=== PATIENT | female | born 1945 | race Caucasian/White ===

== ENCOUNTER 2020-02-23 10:45 | Outpatient (CLI) | payer MEDICARE, SELFPAY ==
--- NOTE | ~2020-02-23 | MMUS_ITS ---
EXAMINATION: MM diagnostic firda BI w garrison, US breast LT complete HISTORY: Left arm and hand swelling, left axillary lymphadenopathy TECHNIQUE: Bilateral ML, MLO and craniocaudal 3-D tomosynthesis images were performed and synthetic 2 -D images were generated. Left rotated lateral full field and spot images. CAD analysis was submitted and interpreted. High resolution breast ultrasound was performed. COMPARISON: 04/15/2017, 08/24/2013 bilateral digital screening mammogram examinations BREAST PARENCHYMAL COMPOSITION: The breasts are heterogeneously dense, which may obscure small masses . FINDINGS: MAMMOGRAPHIC FINDINGS: There is new interval asymmetric increased wispy density in the left axillary tail and increased dens ity in the left axilla compared to the right. These findings are not present on the prior examination s of 04/15/2017 or 08/24/2013. Otherwise no suspicious mass, architectural distortion or malignant calcification, skin thickening or retraction of either breast is evident. There are numerous scattered bilateral benign calcifications of the breast. ULTRASOUND: There is a 3.2 x 2.0 x 2.6 cm irregular heterogeneous hypoechoic solid mass in the left axilla. This is suspicious for malignancy. Ultrasound-guided biopsy is recommended. IMPRESSION: 1. 3.2 cm left axillary mass, highly suggestive of malignancy 2. Ultrasound-guided biopsy is recommended BI-RADS category 5, highly suggestive of malignancy. Dr. Dyer telephoned the report and biopsy recommendation on 02/23/2020 at 1309 hours to Connor Constantino. Reviewed, dictated and finalized at location A. IMPRESSION: 1. 3.2 cm left axillary mass, highly suggestive of malignancy 2. Ultrasound-guided biopsy is recommended BI-RADS category 5, highly suggestive of malignancy. Dr. Dyer telephoned the report and biopsy recommendation on 02/23/2020 at 1309 ho urs to Connor Constantino.
== END 2020-02-23 10:46 | disposition home or self-care (01) ==
LOC: ANHIMG 10:48
PROVIDERS: PCP Family Medicine; Visit Provider Nurse Practitioner Family
DX: R59.0 Localized enlarged lymph nodes (principal); R92.8 Other abnormal and inconclusive findings on diagnostic imaging of breast
CPT/HCPCS: 76641; 77062; 77066; G0279

== ENCOUNTER 2020-04-01 13:59 | Outpatient (CLI) | payer MEDICARE, SELFPAY ==
--- NOTE | ~2020-04-01 | NM_ITS ---
EXAMINATION: NM muga DATE: 04/01/2020 15:41 INDICATION: Monitoring prior to chemotherapy. COMPARISON: None. TECHNIQUE: Stannous pyrophosphate was administered IV. After a waiting period, 18.9 mCi Tc-99m pertec hnetate was administered IV to radiolabel the red blood cells. Gated images of the heart were obtaine d in the best septal view.] FINDINGS: There is no regional wall motion abnormality or paradoxical motion of the left ventricle. The left ventricular ejection fraction measures 59%. IMPRESSION: 1. Normal left ventricular ejection fraction measuring 59%. Reviewed, dictated and finalized at location E.
== END 2020-04-01 14:00 | disposition home or self-care (01) ==
PROVIDERS: PCP Family Medicine; Visit Provider Internal Medicine Medical Oncology
DX: C50.612 Malignant neoplasm of axillary tail of left female breast (principal); Z17.0 Estrogen receptor positive status [ER+]; Z51.81 Encounter for therapeutic drug level monitoring
CPT/HCPCS: 78472; A9560

== ENCOUNTER 2020-06-26 14:17 | Outpatient (CLI) | payer MEDICARE, SELFPAY ==
[2020-06-26 15:18] LABS: INR 1.1; Prothrombin Time 13.4 Seconds (11.1-14.7)
== END 2020-06-26 14:18 | disposition home or self-care (01) ==
PROVIDERS: PCP Family Medicine; Visit Provider Internal Medicine Medical Oncology
DX: I82.409 Acute embolism and thrombosis of unspecified deep veins of unspecified lower extremity (principal)
CPT/HCPCS: 36415; 85610

== ENCOUNTER → 2020-07-18 10:22 | Outpatient (CLI) | payer MEDICARE, SELFPAY ==
--- NOTE | ~2020-07-18 | DEXA_ITS ---
Bone Density Report Name: Noreen Burgos Age: 75 Sex: Female Ethnicity: White Date of : 1945 Indication: postmenopausal osteoporosis; height loss; prior fracture; cancer; Referring Provider: RICHARD, ILIANA Anton Study: Bone densitometry was performed. Exam Date: July 18, 2020 Accession number: [id number] Bone Density: Region BMD T-score Z-score Classification AP Spine (L1-L4) 0.728 -2.9 -0.4 Osteoporosis Femoral Neck (Left) 0.508 -3.1 -0.9 Osteoporosis Total Hip (Left) 0.588 -2.9 -1.0 Osteoporosis Femoral Neck (Right) 0.507 -3.1 -0.9 Osteoporosis Total Hip (Right) 0.582 -2.9 -1.1 Osteoporosis Total Hip Mean 0.585 -2.9 -1.1 Osteoporosis World Health Organization criteria for BMD impression classify patients as: Normal (T-score at or above -1.0), Osteopenia (T-score between -1.0 and -2.5), or Osteoporosis (T-score at or below -2.5). 10-year Fracture Risk: FRAX not reported because: Some T-score for Spine Total or Hip Total or Femoral Neck at or below -2.5 Prior hip or vertebral fracture Previous Exams: Region Exam Age BMD T-score BMD Change BMD Change Date g/cm2 vs Baseline vs Previous AP Spine(L1-L4) 07/18/2020 75 0.728 -2.9 -0.048* -0.027* 09/27/2017 72 0.755 -2.7 -0.021 -0.011 06/16/2012 67 0.766 -2.6 -0.009 0.011 06/23/2010 65 0.756 -2.6 -0.020 -0.014 09/07/2007 62 0.770 -2.5 -0.006 -0.006 09/07/2005 60 0.776 -2.5 Total Hip(Left) 07/18/2020 75 0.588 -2.9 -0.159 -0.067* 09/27/2017 72 0.655 -2.4 -0.092 -0.014 06/16/2012 67 0.669 -2.2 -0.078 0.004 06/23/2010 65 0.664 -2.3 -0.082 -0.049* 09/07/2007 62 0.714 -1.9 -0.033 -0.054* 09/07/2005 60 0.768 -1.4 0.021 0.021 11/15/2002 57 0.747 -1.6 Total Hip(Right) 07/18/2020 75 0.582 -2.9 -0.139 -0.109* 09/27/2017 72 0.691 -2.1 -0.029 0.034* 06/16/2012 67 0.657 -2.3 -0.064 0.009 06/23/2010 65 0.648 -2.4 -0.073 0.000 09/07/2007 62 0.648 -2.4 -0.073 -0.130* 09/07/2005 60 0.777 -1.3 0.057 0.057 11/15/2002 57 0.721 -1.8 *Denotes significance at 95% confidence level, LSC for AP Spine = 0.022 g/cm2, LSC for Total Hip = 0.027 g/cm2 Clinical Information Provided by Patient:
== END ==
PROVIDERS: PCP Family Medicine; Visit Provider Family Medicine
DX: M81.0 Age-related osteoporosis without current pathological fracture (principal)
CPT/HCPCS: 77080

== ENCOUNTER → 2021-10-08 12:12 | Outpatient (CLI) | payer MEDICARE, SELFPAY ==
--- NOTE | ~2021-10-08 | MR_ITS ---
EXAMINATION: MR thoracic spine wo con DATE: 10/08/2021 13:34 INDICATION: Thoracic back pain. Numbness and tingling. TECHNIQUE: Magnetic resonance imaging (MRI) of the thoracic spine was performed without intravenous c ontrast. Sagittal localizer T1-weighted FSE of the cervical spine was obtained. Thoracic spine sequen eduardo included sagittal T2-weighted FSE, sagittal T1-weighted FSE, sagittal T2-weighted FS FSE, and axi al T2-weighted FSE. COMPARISON: Thoracic spine radiographs 11/15/2018 FINDINGS: There is 7 degrees levocurvature of thoracic spine. There is kyphosis of thoracic spine. Th ere is a chronic burst fracture of T11 with 4/5 loss of height centrally and retropulsion of bone 3 m m into central spinal canal. There is a chronic burst fracture of T12 with 3/5 loss of height, change s of vertebroplasty, and retropulsion of bone 5 mm into central spinal canal. There is moderately dec reased disc height at T4-T5. There is severely decreased disc height from T4-T5 through T7-T8 anterio rly with endplate remodeling. There is mildly decreased disc height from T8-T9 through T11-T12. There is multilevel facet joint osteoarthritis, severe bilaterally at T10-T11 and T11-T12. On the right, t here is mild neural foraminal stenosis at T10-T11. On the left, there is mild neural foraminal stenos is at T1-T2 and T10-T11. The discs do not extend beyond the endplate margins. There is mild central c anal stenosis at T1 and T12. The spinal cord signal intensity is normal. IMPRESSION: 1. Severe thoracic spondylosis. Reviewed, dictated and finalized at location A. GIOUS ASSISTANT
--- NOTE | ~2021-10-08 | MR_ITS ---
EXAMINATION: MR lumbar spine wo con DATE: 10/08/2021 13:34 INDICATION: Low back pain. Numbness and tingling. TECHNIQUE: Magnetic resonance imaging (MRI) of the lumbar spine was performed without intravenous con trast. Sequences included sagittal T2-weighted FSE, sagittal T2-weighted FS FSE, sagittal T1-weighted FSE, and axial T2-weighted FSE. COMPARISON: None FINDINGS: Bone alignment is normal in lumbar spine. Lumbar vertebral body heights are normal. There i s moderately decreased disc height at L5-S1. The distal spinal cord signal intensity is normal. The c onus medullaris is at L1. There is a 2.2 cm cyst in right kidney. The following disc levels are speci fically discussed: L1-L2: The disc is bulging. There is mild bilateral facet joint osteoarthritis. There is mild bilater al neural foraminal stenosis. There is mild central canal stenosis. L2-L3: The disc is bulging. There is mild bilateral facet joint osteoarthritis. There is mild bilater al neural foraminal stenosis. There is mild central canal stenosis. L3-L4: The disc is bulging and has an annular fissure. There is moderate bilateral facet joint osteoa rthritis. There is mild bilateral neural foraminal stenosis. There is mild central canal stenosis. L4-L5: The disc is bulging and has an annular fissure. There is moderate bilateral facet joint osteoa rthritis. There is mild bilateral neural foraminal stenosis. There is mild central canal stenosis. L5-S1: The disc is bulging and has an annular fissure. There is severe bilateral facet joint osteoart hritis. There is moderate bilateral neural foraminal stenosis. There is mild central canal stenosis. IMPRESSION: 1. Moderate lower lumbar spondylosis. Reviewed, dictated and finalized at location A. RPRISE DATA ARCHITECT
== END ==
PROVIDERS: PCP Family Medicine; Visit Provider Internal Medicine Rheumatology
DX: M47.815 Spondylosis without myelopathy or radiculopathy, thoracolumbar region (principal); M48.05 Spinal stenosis, thoracolumbar region; R20.0 Anesthesia of skin; R20.2 Paresthesia of skin; M40.205 Unspecified kyphosis, thoracolumbar region; S22.081A Stable burst fracture of T11-T12 vertebra, initial encounter for closed fracture
CPT/HCPCS: 72146; 72148

== ENCOUNTER 2023-01-22 10:03 | Outpatient (CLI) | payer MEDICARE, SELFPAY ==
[2023-01-22 11:25] LABS: Anion Gap 9 mmol/L (8-16); Blood Urea Nitrogen 39 mg/dL (7-17); Calcium 9.4 mg/dL (8.4-10.2); Carbon Dioxide 28 mmol/L (22-30); Chloride 100 mmol/L (98-107); Estimated Glomerular Filt Rate 29; Glucose 149 mg/dL (65-110); Potassium 3.8 mmol/L (3.4-5.0); Sodium 137 mmol/L (137-145)
== END 2023-01-22 10:04 | disposition home or self-care (01) ==
LOC: ANHLAB 10:06
PROVIDERS: PCP Family Medicine; Visit Provider Nurse Practitioner Adult Health
DX: I50.9 Heart failure, unspecified (principal)
CPT/HCPCS: 36415; 80048

== ENCOUNTER 2023-01-30 11:13 | Emergency (ER) | payer MEDICARE, SELFPAY ==
--- NOTE | ~2023-01-30 | XR_ITS ---
XR chest 2V DATE: 01/30/2023 12:07 INDICATION: Cough. History of congestive heart failure, breast cancer. TECHNIQUE: 2 views COMPARISON: 11/15/2018 PA and lateral chest FINDINGS: Left internal jugular Port-A-Cath catheter tip overlies the superior vena cava. Normal heart size. Is aortic calcification, ectasia and mild tortuosity. Bilateral hyperinflation, suggesting COPD. The elderly chest considerably this appearance. No hilar o r mediastinal enlargement is evident. No pleural effusion or pulmonary vascular congestion or pneumothorax. No pulmonary infiltrate or consolidation. Postsurgical change analyst the left axillary soft tissues, possibly due to prior axillary node dissecti on. There is diffuse osteopenia. There are multiple fracture deformities of the thoracic spine with vertebroplasty at a lower thoracic vertebral body. IMPRESSION: Bilateral hyperinflation, suggesting COPD No active cardiopulmonary disease Aortic atherosclerosis Left Port-A-Cath catheter Reviewed, dictated and finalized at location A.
[2023-01-30 11:29] VITALS: BP 104/70; PULSE 95; RESP 18; TEMP 36.4; O2SAT 100
--- NOTE | 2023-01-30 12:09 | ED.URI ---
HPI - URI/Sore Throat General Chief Complaint: Upper Respiratory Infection Stated Complaint: Sore Throat,Cough Time Seen by Provider: 01/30/23 11:47 Source: patient and family () Mode of arrival: ambulatory Limitations: no limitations History of Present Illness HPI Narrative: Patient presents today complaining of a productive cough since last night with postnasal drainage, scratchy throat, bilateral ear pain, headache. Denies fever or shortness of breath. Patient's history of metastatic breast cancer and just stopped chemo and knocked over. States her chemo damaged her hurting caused congestive heart failure which she has been under treatment for. States her grandchildren have been sick last week and she did have exposure. She has been taking Tylenol for her symptoms. Related Data Home Medications Medication Instructions Recorded Confirmed apixaban 2.5 mg tablet (Eliquis) 2.5 mg PO BID 01/30/23 01/30/23 duloxetine 30 mg capsule,delayed 30 mg PO DAILY 01/30/23 01/30/23 release exemestane 25 mg tablet 25 mg PO DAILY 01/30/23 01/30/23 furosemide 40 mg tablet 20 mg PO DAILY 01/30/23 01/30/23 ibandronate 150 mg tablet 150 mg PO MONTHLY 01/30/23 01/30/23 lifitegrast 5 % eye drops in a 2 drp EACH EYE BID 01/30/23 01/30/23 dropperette (Xiidra) magnesium oxide 400 mg (241.3 mg 400 mg PO DAILY 01/30/23 01/30/23 magnesium) tablet potassium chloride 20 mEq 20 meq PO DAILY 01/30/23 01/30/23 tablet,extended release(part/cryst) sacubitril 24 mg-valsartan 26 mg 0.5 tablet PO DAILY 01/30/23 01/30/23 tablet (Entresto) Allergies Allergy/AdvReac Type Severity Reaction Status Date / Time amoxicillin AdvReac Severe Swelling Verified 01/30/23 12:13 of Lip/Tongue/Throat ciprofloxacin AdvReac Mild Rash Verified 01/30/23 12:13 Review of Systems Review of Systems: CONSTITUTIONAL: Denies body aches, fever, chills, or sweats. EYES: Denies visual changes, redness, or discharge. ENT: Denies rhinorrhea, congestion, sore throat.+ scratchy throat, postnasal drip, bilateral ear pain CARDIOVASCULAR: Denies chest pain, palpitations, or edema. RESPIRATORY: Denies dyspnea.+ cough GASTROINTESTINAL: Denies abdominal pain, nausea, vomiting, or diarrhea. GENITOURINARY: Denies dysuria or hematuria. SKIN: Denies rash, itching, or wounds. MUSCULOSKELETAL: Denies back pain, joint pain, or myalgia. NEUROLOGIC: Denies numbness, tingling, or weakness.+ headache PSYCH: Denies depression or anxiety. PMFSH Past Medical History Medical History (Updated 01/30/23 @ 12:47 by Gema Mcgowan, [facility], ) Huerta's palsy Breast cancer Congestive heart failure COPD (chronic obstructive pulmonary disease) Diabetes History of shingles Sleep apnea Social History Social History Gender identity (if verbalized by the patient): Male Comments At time of signature, I have reviewed and agree with nursing past medical, surgical, social and family history unless otherwise noted. Please see nursing chart for further information. There is no relevant family history pertinent to the presenting complaint Exam Narrative: GENERAL: Well-appearing, well-nourished, and in no acute distress. HEAD: Normocephalic, atraumatic. EYES: EOMI. No redness or drainage. Conjunctivae normal. ENT: Mucous membranes pink and moist. Nares clear. No rhinorrhea. TMs normal bilaterally. Throat normal. Uvula midline. NECK: Normal AROM. Supple. No lymphadenopathy. CHEST: No respiratory distress. Clear to auscultation. HEART: Regular rate and rhythm. No murmur appreciated. Normal peripheral pulses. EXTREMITIES: Normal range of motion. No edema. SKIN: Warm, dry, no rash. Capillary refill normal. Normal skin turgor. NEURO: Alert and oriented x3. Gait steady. Left-sided facial droop consistent with Huerta's palsy. PSYCH: Normal affect. No signs of depression or anxiety. Course Course Level of Care: Tone
== END 2023-01-30 12:49 | disposition home or self-care (01) ==
PROVIDERS: Emergency Provider Nurse Practitioner; PCP Family Medicine
DX: J06.9 Acute upper respiratory infection, unspecified (principal); Z20.822 Contact with and (suspected) exposure to COVID-19; C50.919 Malignant neoplasm of unspecified site of unspecified female breast; C79.9 Secondary malignant neoplasm of unspecified site; J44.9 Chronic obstructive pulmonary disease, unspecified; E11.9 Type 2 diabetes mellitus without complications; I50.9 Heart failure, unspecified
CPT/HCPCS: 71046; 87081; 87426; 87880; 99212; C9803; G0463

== ENCOUNTER 2023-03-19 11:00 | Outpatient (RCR) | payer MEDICARE, SELFPAY ==
--- NOTE | 2023-02-22 15:49 | STOPEVAL1 ---
Assessment and note entered by Umm Dawson, TEXTILE COLORIST FORMULATOR Evaluation Information Assessment Status Evaluation Diagnosis Dysphonia Subjective Information The patient reports she has had breast cancer withh chemotherapy twice, after her last chemotherapy treatment in June,, she had issues including face paralysis speech sound imprecision. She reports that the left side of her face have improved but her right side has only minimally improved. She stated that her children are having trouble understanding her. Patient also reports that she is having trouble eating and has lost significant weight but has begun to put weight back on. Patient has to use her hand to get food where it needs to be on the right cheek in order to move it where it can be chewed and swallowed. Tends to consume more soft foods such as yogurt. She is able to consume raw vegetables but it takes a lot of work. She also reports that she had lost her ability to taste but that has improved in the past few months. Reported Pain Level Pain Score 0: Self Report Assessment ST Clinical Summary COMMUNICATION EVALUATION INCLUDING VOICE, ORAL MOTOR, AND SPEECH SKILLS Patient was seen for a voice, oral motor, and speech evaluation this date in order to assess her communication concerns. Patient reported that she feels that her voice may be strained secondary to her attempts to speak loudly and clearly for her and other family members. She reports she feels that her has a hearing problem and that her other family members cannot understand her over the phone and this causes her to strain. Additionally patient reports concerns with facial paralysis characterized as minimal labial movement with poor labial closure causing her to have to physically close her lips with her fingers to produce clear speech or to reduce dry mouth when sleeping. Today the patient presents with mild dysphonia characterized as a mildly strained vocal quality, and moderate dysarthria characterized as reduced labial rate, range, and strength, and moderate speech sound imprecision for labial/labial-dental sounds, /p,b,m,f,v/.
--- NOTE | 2023-03-04 15:34 | PCSTNOTE ---
The patient treatment was not able to be completed on 03/04 due to illness. Will plan to continue treatment per plan of care.
--- NOTE | 2023-03-11 11:36 | PCSTNOTE ---
The patient treatment was not able to be completed on 03/11 due to illness. Will plan to continue treatment per plan of care.
--- NOTE | 2023-03-11 11:45 | PCSTNOTE ---
The patient treatment was not able to be completed on 03/04 due to not feeling well. Will plan to continue treatment per plan of care.
--- NOTE | 2023-03-26 11:06 | PCSTNOTE ---
The patient treatment was not able to be completed on 03/26 due to illness. Will plan to continue treatment per plan of care.
--- NOTE | 2023-03-29 13:09 | PCSTNOTE ---
Therapist contacted patient who stated she has been admitted to [facility] with low blood pressure. Wants to reschedule later in the week and then contnue Speech Therapy.
--- NOTE | 2023-05-14 16:02 | STOPDC ---
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 She was presented with a mild dysphonia and moderate dysarthria and speech therapy was addressed to improve these impairments . Patient exhibited good progress in all areas. She then entered the hospital and was also at the end of her four weeks. When therapist contacted patient over the phone, her speech was intelligible and further therapy orders were not pursued. Patient was discharged with goals achieved. Plan of Care ST Services Indicated No
== END 2023-05-17 07:07 | disposition home or self-care (01) ==
LOC: ANHST 11:00
PROVIDERS: PCP Family Medicine; Visit Provider Internal Medicine Medical Oncology
DX: R49.0 Dysphonia (principal)
CPT/HCPCS: 92507; 92522; 92524

== ENCOUNTER 2023-03-27 13:04 | Inpatient (IN) | payer MEDICARE, SELFPAY ==
[2023-03-27] VITALS (9 sets, daily range): BP systolic 79–138; BP diastolic 46–66; PULSE 68–104; RESP 16–25; TEMP 36.3–36.6; O2SAT 92–100; BMI 19.5
--- NOTE | ~2023-03-27 | XR_ITS ---
XR chest 2V DATE: 03/27/2023 14:11 INDICATION: Cough, shortness of breath, hypertension, weakness. TECHNIQUE: AP and lateral views COMPARISON: January 30, 2023 2 view chest FINDINGS: Left internal jugular Port-A-Cath catheter with tip overlying superior vena cava is again n oted. No other tubes or central lines noted. Heart size is normal. There is aortic arch calcification, mild aortic unfolding. No hilar or mediasti nal enlargement. The lungs are hyperinflated consistent with obstructive airways disease. No pulmonary infiltrate or c onsolidation, pleural effusion or pulmonary vascular congestion or pneumothorax is detected. There is diffuse osteopenia. Chronic fracture deformities of the mid and lower thoracic spine and chance tebroplasty at a lower thoracic segment appears stable since January 30, 2023. IMPRESSION: Bilateral hyperinflation suggesting COPD; no active pulmonary disease Left Port-A-Cath catheter in superior vena cava Aortic atherosclerosis Reviewed, dictated and finalized at location A. IMPRESSION: Bilateral hyperinflation suggesting COPD; no active pulmonary disea se Left Port-A-Cath catheter in superior vena cava Aortic atherosclerosis
--- NOTE | ~2023-03-27 | US_ITS ---
Renal-Bladder ultrasound Clinical History: Acute renal injury Technique: Real-time sonographic imaging of the kidneys and urinary bladder was performed. Findings: The right kidney measures 9.4 cm in length and the left kidney measures 8.3 cm. There is no hydronephrosis or renal calculus identified. Renal cortical echogenicity is within normal limits. Ri ght renal cyst noted. The urinary bladder is largely collapsed, limiting evaluation. Impression: No hydronephrosis. Collapsed urinary bladder limits evaluation. Reviewed, dictated and finalized at location M. Impression: No hydronephrosis. Collapsed urinary bladder limits evaluation.
--- NOTE | 2023-03-27 13:42 | ED.RECABL ---
HPI - Recheck/Abnormal Lab/Rx General Chief Complaint: Recheck/Abnormal Lab/Rx Stated Complaint: low blood pressure Time Seen by Provider: 03/27/23 13:30 History of Present Illness HPI narrative: Patient is a 70-year-old female with a history of breast cancer on immunotherapy, HFrEF (EF approx 45%) presenting with low blood pressure. Patient states that she was recently started on a low-dose of Entresto by her electrical lineworker. States that she has been taking this for the last several weeks. States that she checks her blood pressure and only takes it if it is above 90/60. States that she has had some low blood pressures over the last several days. States that it was 94/60 this morning so she took her Entresto. She checked her blood pressure several hours later and it was 60s over 40s. States that she feels okay if she is sitting down but if she gets up to walk she feels very weak, lightheaded, short of breath. She denies any chest pain. She is on Eliquis. Denies leg swelling. Denies fevers or chills, abdominal pain, vomiting, dysuria. She does report a recent cough and diarrhea. Related Data Home Medications Medication Instructions Recorded Confirmed apixaban 2.5 mg tablet (Eliquis) 2.5 mg PO BID 01/30/23 03/27/23 duloxetine 30 mg capsule,delayed 30 mg PO DAILY 01/30/23 03/27/23 release exemestane 25 mg tablet 25 mg PO DAILY 01/30/23 03/27/23 furosemide 40 mg tablet 20 mg PO DAILY 01/30/23 03/27/23 lifitegrast 5 % eye drops in a 2 drp EACH EYE BID 01/30/23 03/27/23 dropperette (Xiidra) magnesium oxide 400 mg (241.3 mg 400 mg PO DAILY 01/30/23 03/27/23 magnesium) tablet potassium chloride 20 mEq 20 meq PO DAILY 01/30/23 03/27/23 tablet,extended release(part/cryst) Verzenio 150 mg PO BID 03/27/23 03/27/23 metoprolol succinate 25 mg 25 mg PO DAILY 03/27/23 03/27/23 tablet,extended release 24 hr Allergies Allergy/AdvReac Type Severity Reaction Status Date / Time amoxicillin AdvReac Severe Swelling Verified 03/27/23 13:20 of Lip/Tongue/Throat ciprofloxacin AdvReac Mild Rash Verified 03/27/23 13:20 Review of Systems Review of Systems: All systems reviewed & are unremarkable except as noted in HPI and below PMFSH Past Medical History Medical History Arthritis Chronic anemia Chronic anticoagulation Chronic obstructive pulmonary disease Diet-controlled diabetes mellitus Facial nerve palsy Right-sided, 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 Gastroesophageal reflux disease Heart failure with reduced ejection fraction History of shingles Hypertension No longer on medication following weight loss. Macular degeneration Obstructive sleep apnea No longer able to tolerate CPAP with her facial nerve palsy. Paroxysmal atrial fibrillation Stage IV breast cancer in female Surgical History Surgical History History of cardiac radiofrequency ablation History of cataract extraction History of section History of tubal ligation History of vertebroplasty Family History Family History Mother Congestive heart failure Father Leaky heart valve Social History Social History Social History: Surrogate medical decision maker: Flavio Burgos, spouse. Code status: Full code. Smoking status: Former smoker Additional smoking assessment comments: Social smoker Alcohol intake: current Drinks per week: 5 Alcohol use details: Drinks a glass of wine most evenings. Substance use: never Lack of Transportation: No Lack of Food: Never True Current Housing: I Have Housing Concerned About Future Housing: No Difficulty Paying Gas/Electric Bills: No Difficulty Paying for Meds: No Currently Unemployed: No Education: Bachelor's Degree Difficulty w/ Childcare or Famil
--- NOTE | 2023-03-27 13:54 | ECG_ITS ---
Measurements Intervals Sikes Rate: 73 P: 55 RI: 138 QRS: 9 QRSD: 85 T: 46 QT: 387 QTc: 429 Interpretive Statements SINUS RHYTHM NO PREVIOUS ECG AVAILABLE FOR COMPARISON Electronically Signed On 03-28-2023 12:12:11 CDT by Jayne Jerez M.D.
[2023-03-27] MEDS: SODIUM CHLORIDE 0.9% IV 1,000 ML 999 ML IV CONT ×2 (14:33→15:35)
[2023-03-27 14:37] LABS: Basophils Absolute Auto 0.1 K/mm3 (0.0-0.1); Basophils Percent Auto 1.6 % (0.2-1.2); Eosinophils Absolute Auto 0.1 K/mm3 (0-0.3); Eosinophils Percent Auto 2.2 % (0-4.4); Hematocrit 27.9 % (37.0-47.0); Hemoglobin 9.2 g/dL (12.0-15.0); Immature Granulocyte Absolute 0.01 K/mm3 (0.00-0.031); Immature Granulocyte Percent A 0.3 % (0-0.5); Lymphocytes Absolute Auto 1.78 K/mm3 (0.9-3.2); Lymphocytes Percent Auto 56.7 % (18.3-44.2); Mean Corpuscular Hemoglobin 28.8 pg (26-34); Mean Corpuscular Volume 87.5 fl (80-100); Mean Platelet Volume 9.6 fl (7.4-10.4); Monocytes Absolute Auto 0.2 K/mm3 (0.1-0.6); Monocytes Percent Auto 6.4 % (2.6-8.5); Neutrophils Percent Auto 32.8 % (45.5-73.1); Platelet Count Result 177 k/mm3 (150-375); Red Blood Count 3.19 M/mm3 (4.2-5.4); Red Cell Distribution Width 18.9 % (11.5-14.5); White Blood Count 3.1 K/mm3 (4.5-10.0)
[2023-03-27 14:47] LABS: INR 1.2; Partial Thromboplastin Time 24.7 SECONDS (22.3-36.8); Prothrombin Time 15.4 Seconds (11.1-14.7)
[2023-03-27 14:49] LABS: Alanine Aminotransferase 18 U/L (6-35); Albumin Level 4.7 g/dL (3.5-5.1); Alkaline Phosphatase 36 U/L (38-126); Anion Gap 17 mmol/L (8-16); Aspartate Amino Transferase 27 U/L (14-36); Bilirubin,Total 0.5 mg/dL (0.2-1.3); Blood Urea Nitrogen 73 mg/dL (7-17); Calcium 8.7 mg/dL (8.4-10.2); Carbon Dioxide 15 mmol/L (22-30); Chloride 106 mmol/L (98-107); Estimated Glomerular Filt Rate 9; Glucose 112 mg/dL (65-110); Potassium 3.6 mmol/L (3.4-5.0); Sodium 138 mmol/L (137-145)
[2023-03-27 15:00] LABS: NT Pro B Type Natriuretic Pept 488 pg/mL (19.9-100); Troponin I < 0.012 ng/mL (0.000-0.034)
[2023-03-27 15:13] LABS: Influenza A QL RT-PCR Negative (Negative); Influenza B QL RT-PCR Negative (Negative); RSV RNA, RT-PCR Negative (Negative); SARS-CoV-2 RNA PCR Negative (Negative)
[2023-03-27 15:46] LABS: Appearance Urine Cloudy (Clear); Bacteria Urine None Seen /hpf; Bilirubin Urine Negative (Negative); Blood Urine Negative (Negative); Color Urine Yellow (Yellow); Glucose Urine UA Negative (Negative); Ketones Urine Negative (Negative); Leukocyte Esterase Ur Trace LEU/UL (Negative); Need Manual Microscopic Reviewed; Nitrate Urine Negative (Negative); Protein Urine Negative (Negative); RBC Urine 0-2 /hpf (0-2); Specific Grav Ur 1.011 (1.001-1.035); Squamous Epithelial Cell Urine Occasional /hpf (Few); Urobilinogen Urine 0.2 mg/dL (<2.0); WBC Urine 0-5 /hpf
[2023-03-27 15:57] LABS: Add Urine Microscopic? YES
[2023-03-27 17:41] LABS: Troponin I < 0.012 ng/mL (0.000-0.034)
--- NOTE | 2023-03-27 18:13 | PM.IMHP ---
H&P: HPI History of Present Illness Date/Time: 03/27/23 18:00 Chief Complaint: Weakness and low blood pressure. Narrative: This is a very pleasant 78-year-old female with stage IV breast cancer, cardiomyopathy (EF approximately 45% per patient report), obstructive sleep apnea, diet-controlled diabetes, and atrial fibrillation status post cardiac ablation who presented to the emergency department via private vehicle from home for evaluation of weakness and low blood pressure. She has unfortunately suffered several adverse effects from her chemotherapy including chemotherapy-induced cardiomyopathy, peripheral neuropathy, and facial palsy and she has lost quite a bit of weight due to difficulty swallowing from the facial palsy. Due to the weight loss she has been able to come off medications for hypertension and diabetes. In fact her blood pressures typically run on the low end of normal now. When her heart failure was discovered she was started on Entresto however did not tolerate it well due to low blood pressures. She was started on Entresto again within the last week or so and was told to only take the drug if her blood pressure was greater than 90/50. She has been watching her blood pressures closely and taking the drug accordingly. She has been increasingly weak since resuming the Entresto with feelings of near-syncope and shortness of breath with minimal activity. After taking her Entresto today her blood pressure dropped into the 60s over 40s and she came in for evaluation. In the ED her blood pressure was as low as 79/49 and she was given a 2 L fluid bolus with improvement in her blood pressures. Labs were significant for a WBC count 3.1, hemoglobin 9.2, sodium 138, potassium 3.6, carbon dioxide 15, anion gap 17, BUN 73, creatinine 4.70 proBNP 488. Urine was cloudy with trace leukocyte esterase and 11 to 20 casts. Chest x-ray did not show any active cardiopulmonary disease. She is being admitted in this setting for workup of acute kidney injury. At the time my evaluation she has no specific complaints. She has not noticed a decrease in urine output or change in urine color. She does not feel as though she is having issues with urinary retention. She has had some loose stools the last 3 days. She denies sick contacts, recent travel, and recent antibiotic use. She denies fever, chills, and sweats. Appetite has been okay and at her baseline. Review of Systems Review of Systems: Twelve systems were reviewed and are negative except for as per HPI. 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 Gastroesophageal reflux disease Heart failure with reduced ejection fraction History of shingles Hypertension No longer on medication following weight loss. Macular degeneration Obstructive sleep apnea No longer able to tolerate CPAP with her facial nerve palsy. Paroxysmal atrial fibrillation Stage IV breast cancer in female Surgical History Surgical History History of cardiac radiofrequency ablation History of cataract extraction History of section History of tubal ligation History of vertebroplasty Family History Family History Mother Congestive heart failure Father Leaky heart valve Social History Social History Social History: Surrogate medical decision maker: Flavio Burgos, spouse. Code status: Full code. Smoking status: Former smoker Additional smoking assessment comments: Social smoker Alcohol intake: current Drinks per week: 5 Alcohol use details: Drinks a glass of wine most evenings. Substance use:
--- NOTE | 2023-03-27 18:53 | ADMGEN ---
This patient, Noreen Burgos, was admitted to [facility] Surg Room 300-01. Patient/family oriented to hospital policies and general routines including ID bracelet, bed and alarms, visiting hours, pain management, procedures, bathroom and other care routines, personal items, smoking policy, room service/diet, and visiting hours. Information on how to activate the Rapid Response Team has been discussed. Patient/Family are encouraged to report perceived risks to care and to ask questions if they do not understand what they are told or what they should do.
[2023-03-27 20:21] LABS: Troponin I < 0.012 ng/mL (0.000-0.034)
--- NOTE | 2023-03-27 20:59 | PHAR ---
HOME MED VERIFIED = [id number] [facility]. VERZENIO (ABEMACICLIB) 150 MG TABS IN MANUFACTURES 14 TAB DISPENSING BOX.
[2023-03-28] VITALS (12 sets, daily range): BP systolic 98–119; BP diastolic 37–99; PULSE 68–96; RESP 16–18; TEMP 36.1–36.8; O2SAT 98–100
[2023-03-28 00:40] LABS: Anion Gap 9 mmol/L (8-16); Blood Urea Nitrogen 63 mg/dL (7-17); Calcium 7.3 mg/dL (8.4-10.2); Carbon Dioxide 17 mmol/L (22-30); Chloride 112 mmol/L (98-107); Creatine Kinase 94 U/L (30-135); Estimated Glomerular Filt Rate 10; Glucose 91 mg/dL (65-110); Magnesium 0.7 mg/dL (1.6-2.3); Phosphorus 4.3 mg/dL (2.5-4.5); Potassium 3.7 mmol/L (3.4-5.0); Sodium 138 mmol/L (137-145)
[2023-03-28] MEDS: LACTATED RINGERS 1,000 ML 75 ML IV CONT ×2 (01:45→15:05)
[2023-03-28] MEDS: MAGNESIUM SULFATE 3GM/D5W100ML 3 GM/100 ML BAG IVPB (01:53)
[2023-03-28 05:55] LABS: Hematocrit 24.1 % (37.0-47.0); Hemoglobin 7.7 g/dL (12.0-15.0); Mean Corpuscular Hemoglobin 28.2 pg (26-34); Mean Corpuscular Volume 88.3 fl (80-100); Mean Platelet Volume 9.8 fl (7.4-10.4); Platelet Count Result 145 k/mm3 (150-375); Red Blood Count 2.73 M/mm3 (4.2-5.4); Red Cell Distribution Width 19.1 % (11.5-14.5); White Blood Count 3.3 K/mm3 (4.5-10.0)
[2023-03-28 06:13] LABS: Anion Gap 10 mmol/L (8-16); Blood Urea Nitrogen 61 mg/dL (7-17); Calcium 7.6 mg/dL (8.4-10.2); Carbon Dioxide 19 mmol/L (22-30); Chloride 111 mmol/L (98-107); Estimated Glomerular Filt Rate 11; Glucose 91 mg/dL (65-110); Potassium 3.8 mmol/L (3.4-5.0); Sodium 140 mmol/L (137-145)
[2023-03-28] MEDS: APIXABAN 2.5 MG TABLET PO ×2 (08:29→20:11)
[2023-03-28] MEDS: DULoxetine HCL 30 MG CAPSULE.DR PO (08:29)
--- NOTE | 2023-03-28 10:20 | PM.IMPN ---
Progress Note: A&P Assessment and Plan (1) Hypotension: Code(s): I95.9 - Hypotension, unspecified Status: Acute (2) Acute kidney injury: Code(s): N17.9 - Acute kidney failure, unspecified Status: Acute (3) Heart failure with reduced ejection fraction: Code(s): I50.20 - Unspecified systolic (congestive) heart failure Status: Acute (4) Chronic anemia: Code(s): D64.9 - Anemia, unspecified Status: Acute (5) Stage IV breast cancer in female: Code(s): C50.919 - Malignant neoplasm of unspecified site of unspecified female breast Status: Acute (6) Chronic anticoagulation: Code(s): Z79.01 - rat exterminator (current) use of anticoagulants Status: Acute Plan The patient presented to the emergency department for evaluation of weakness and low blood pressures as per HPI. She has lost quite a bit a weight since starting treatment for her breast cancer and she has been off of antihypertensives for quite some time. She was recently tried back on Entresto given her chemotherapy-induced cardiomyopathy however it seems as though this is the cause of her drop in blood pressures. Additionally she has an acute kidney injury which is likely due to a combination of hypoperfusion from hypotension and Entresto itself. She may have some component of mild dehydration as well given the fact that she has difficulties eating and staying hydrated given her facial palsy. She will be judiciously hydrated with close monitoring of volume status and renal function. Renal ultrasound ordered. Repeat BMP pending this evening to ensure her renal function is improving with IV fluids and to assess the need for possible sodium bicarbonate. Hold metoprolol, furosemide, and Entresto. Per patient request Dr. Bucio has been consulted. She has a chronic anemia which will be monitored. She denies evidence of blood loss. Continue apixaban. The rest of her home medications will be reviewed and resumed as appropriate. Subjective Date/time seen: 03/28/23 10:20 Interval history: No complaints Exam Narrative: General: Thin, frail appearing female sitting up in bed in no acute distress. Weight: 43.8 kg. BMI: 19.5. HEENT: PERRL, EOMI. Sclera anicteric. Tacky mucous membranes. 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 Neck: Supple. Respiratory: Respirations are nonlabored. Lung sounds are diminished throughout upper otherwise clear to auscultation. Chest: Port-A-Cath in the left anterior chest. Cardiovascular: Regular rate and rhythm with S1-S2. Gastrointestinal: Abdomen is soft, flat, nontender, and nondistended with positive bowel sounds. Skin: Warm and dry. No rash or lesions on limited exam. Extremities: No cyanosis or clubbing. Mild lymphedema of the left upper extremity. Peripheral pulses intact. Neurological: Alert. Cranial nerves 2-12 are grossly intact. No gross focal deficits to casual conversation. Psychiatric: Pleasant and cooperative with normal mood and affect. Judgment and insight intact. Objective Data Vital Signs Vital Signs: Vital Signs - 24 hr 03/27/23 13:11 03/27/23 13:11 03/27/23 15:16 Temperature 97.6 F 97.3 F L Pulse Rate 84 84 68 Respiratory Rate 25 H 20 16 Blood Pressure 98/58 L 79/49 L 104/46 L Pulse Oximetry 99 100 98 Oxygen Delivery Room Air Fraction of Inspired Oxygen 03/27/23 14:32 03/27/23 16:34 03/27/23 17:45 Temperature Pulse Rate 69 72 81 Respiratory Rate 20 18 20 Blood Pressure 83/56 L 125/58 L 118/61 Pulse Oximetry 98 98 97 Oxygen Delivery Fraction of Inspired Oxygen 03/27/23 18:24 03/27/23 21:04 03/27/23 20:00 Temperature 97.8 F 97.7 F Pulse Rate 76 79 Respiratory Rate 16 18 Blood Pressure 116/66 138/59 L Pulse Oximetry 92 100 Oxygen Delivery Room Air Fraction of Inspired Oxygen 03/27/23 20:00 03/28/23 00:00 03/28/23 04:00 Temperature Pulse Rate 104 H
--- NOTE | 2023-03-28 11:28 | PM.CNCAR ---
Assessment and Plan Assessment and plan (1) Acute kidney injury: Code(s): N17.9 - Acute kidney failure, unspecified Status: Acute Assessment and Plan: In the setting of significant hypotension, Entresto use. Improving with IVFs. Entresto discontinued. Avoid all nephrotoxic agents at this time. Hold Lasix at this time as well. Monitor strict I/Os. Consider Nephrology consultation. Given this event, would not reattempt Entresto again in the future. (2) Hypotension: Code(s): I95.9 - Hypotension, unspecified Status: Acute Assessment and Plan: Likely precipitated by Entresto, which is now discontinued. Blood pressures are improving (3) Paroxysmal atrial fibrillation: Code(s): I48.0 - Paroxysmal atrial fibrillation Status: Acute Assessment and Plan: Continue Toprol, Eliquis. In sinus rhythm currently. (4) Heart failure with reduced ejection fraction: Code(s): I50.20 - Unspecified systolic (congestive) heart failure Status: Acute Assessment and Plan: Likely chemotherapy induced Continue Toprol. Stop Entresto. Given this event, would not reattempt Entresto again in the future. Hold Lasix. (5) Chronic anticoagulation: Code(s): Z79.01 - terminal press operator (current) use of anticoagulants Status: Acute Assessment and Plan: Continue Eliquis. History of Present Illness History of Present Illness Consult date/time: 03/28/23 11:28 Requesting physician: Vanessa Lynn PA-C Consult reason: Other (JACI) Reason For Visit: JACI Narrative: We are consulted for JAIC, hypotension. Patient follows with Dr. Brothers in the clinic. 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 Patient presented to the ER with weakness and low blood pressures. Was recently started on Entresto again 1/2 tablet BID by our office for her cardiomyopathy. Daughter states that patient had tried Entresto in the past but did not tolerate it due to low blood pressures, however, since her recent diagnosis of LV systolic dysfunction, Entresto restarted. Patient states after taking her Entresto yesterday, her blood pressure dropped down to 60/40mmHg. In the ER, BP 79/49 and patient given IVFs. Scr 4.7 on admission, down to 4 this morning. Her SCr back in December was 1.7. 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 Gastroesophageal reflux disease Heart failure with reduced ejection fraction History of shingles Hypertension No longer on medication following weight loss. Macular degeneration Obstructive sleep apnea No longer able to tolerate CPAP with her facial nerve palsy. Paroxysmal atrial fibrillation Stage IV breast cancer in female Surgical History Surgical History History of cardiac radiofrequency ablation History of cataract extraction History of section History of tubal ligation History of vertebroplasty Family History Family History Mother Congestive heart failure Father Leaky heart valve Social History Social History Social History: Surrogate medical decision maker: Flavio Burgos, spouse. Code status: Full code. Smoking status: Former smoker Additional smoking assessment comments: Social smoker Alcohol intake: current Drinks per week: 5 Alcohol use details:
--- NOTE | 2023-03-28 12:50 | PM.CNNEP ---
Assessment and Plan Assessment and plan (1) Acute kidney injury: Code(s): N17.9 - Acute kidney failure, unspecified Status: Acute Assessment and Plan: suspect related to acute on chronic hypotension in the context of Entresto use however, other medications could be playing a role: billy has been associated with elevated creatinines was also on diuretics agree with hold Entresto and diuretics trial of IVFs check renal ultrasound, urine electrolytes, urine eosinophils, and CPK follow trend of repeat labs and UOP (2) Chronic kidney disease, stage IV (severe): Code(s): N18.4 - Chronic kidney disease, stage 4 (severe) Status: Chronic Assessment and Plan: baseline creatinine ~ 1.7mg/dl (December 2022) presumably due to CHF, diuretics, MICHELLE, and age-related change (3) Hypotension: Code(s): I95.9 - Hypotension, unspecified Status: Acute Assessment and Plan: chronically low at baseline (~ 90s systolic) precipitated by entresto and perhaps diminished oral intake holding entresto and diuretics follow trend of hemodynamics (4) Paroxysmal atrial fibrillation: Code(s): I48.0 - Paroxysmal atrial fibrillation Status: Acute Assessment and Plan: continue rate control strategy on anticoagulation (5) Heart failure with reduced ejection fraction: Code(s): I50.20 - Unspecified systolic (congestive) heart failure Status: Acute Assessment and Plan: presumably chemotherapy induced remains on Toprol off entresto and diuretics at this time (6) Stage IV breast cancer in female: Code(s): C50.919 - Malignant neoplasm of unspecified site of unspecified female breast Status: Chronic Assessment and Plan: on chemotherapy I had long and extensive discussion (greater than 25 min) with both the patient as well as her daughter by phone with regard to severity of her acute kidney injury/acute renal failure. The presumption is that this is all induced by hypotension in the context of recent use of interest 0 although from what the patient tells me, she has not actually taken many doses of the entresto as she was told to hold it if her systolic BP was less than 90. the hope was that with better blood pressure readings this will improve blood flow to her kidneys and hopefully get her renal function back to baseline. I will continue follow patient with you while she remains hospitalized and make further recommendations as deemed necessary. Thank you for allowing me to participate in the care of this patient. History of Present Illness Reason for Consult Consult date: 03/27/23 Reason for consult: acute renal failure (on chronic kidney disease) Chief Complaint Chief complaint: JACI History of Present Illness Narrative: The patient is a 78-year-old female with a past medical history as outlined below the who presented to [facility] Emergency room for further evaluation of weakness in association with low blood pressure. The patient has been suffering from a number of side effects related to chemotherapy for her breast cancer including cardiomyopathy, peripheral neuropathy, and a facial palsy. She has also lost a significant amount of weight due to her difficulty swallowing from her facial palsy. Due to her significant weight loss, she has been actually able to come off medications for her high blood pressure and diabetes. In fact, now her blood pressure run somewhat on the soft side, usually in the 90 systolic. She was recently started on interest though with parameters of when to take it given her low blood pressure and she has been following this as best as possible. However, she reports that since resuming the interest 0, she has had issues with lightheadedness, dizziness, near-syncope as well as mild shortness of breath with minimal exertion. Apparently, on the day of admission, when she took her interest 0
[2023-03-28 14:35] LABS: Creatinine Urine 86.6 mg/dL; Total Protein Urine Random 12 mg/dL; Ur Ttl Prot Creatinine Ratio 0.14 mg/mg (0-0.20); Urea Random Urine 660 MG/DL
[2023-03-28 14:50] LABS: Sodium Urine Random 44 meq/L
[2023-03-28 15:14] LABS: Eosinophil Urine None Seen % (None Seen)
[2023-03-28 15:15] LABS: Urine Eos QC 2nd Tech Confirmed
[2023-03-29] VITALS (20 sets, daily range): BP systolic 95–153; BP diastolic 43–73; PULSE 70–98; RESP 16–22; TEMP 36.1–36.6; O2SAT 98–100; BMI 20.1
[2023-03-29 06:53] LABS: Basophils Percent Auto 1.1 % (0.2-1.2); Eosinophils Absolute Auto 0.1 K/mm3 (0-0.3); Eosinophils Percent Auto 2.9 % (0-4.4); Hematocrit 21.3 % (37.0-47.0); Immature Granulocyte Absolute 0.01 K/mm3 (0.00-0.031); Immature Granulocyte Percent A 0.4 % (0-0.5); Lymphocytes Absolute Auto 1.54 K/mm3 (0.9-3.2); Lymphocytes Percent Auto 55.4 % (18.3-44.2); Mean Corpuscular HGB Conc 31.9 g/dl (32-36); Mean Corpuscular Hemoglobin 27.9 pg (26-34); Mean Corpuscular Volume 87.3 fl (80-100); Mean Platelet Volume 9.5 fl (7.4-10.4); Monocytes Absolute Auto 0.2 K/mm3 (0.1-0.6); Monocytes Percent Auto 7.2 % (2.6-8.5); Neutrophils Absolute Auto 0.9 K/mm3 (1.3-6.7); Platelet Count Result 137 k/mm3 (150-375); Red Blood Count 2.44 M/mm3 (4.2-5.4); Red Cell Distribution Width 18.6 % (11.5-14.5); White Blood Count 2.8 K/mm3 (4.5-10.0)
[2023-03-29 07:01] LABS: Hemoglobin 6.8 g/dL (12.0-15.0)
[2023-03-29 07:04] LABS: Creatine Kinase 103 U/L (30-135)
[2023-03-29 07:05] LABS: Albumin Level 3.2 g/dL (3.5-5.1); Anion Gap 4 mmol/L (8-16); Blood Urea Nitrogen 44 mg/dL (7-17); Calcium 7.5 mg/dL (8.4-10.2); Carbon Dioxide 23 mmol/L (22-30); Chloride 113 mmol/L (98-107); Estimated Glomerular Filt Rate 16; Glucose 82 mg/dL (65-110); Phosphorus 3.3 mg/dL (2.5-4.5); Potassium 4.2 mmol/L (3.4-5.0); Sodium 140 mmol/L (137-145)
[2023-03-29] MEDS: APIXABAN 2.5 MG TABLET PO ×2 (10:08→19:49)
[2023-03-29] MEDS: DULoxetine HCL 30 MG CAPSULE.DR PO (10:08)
--- NOTE | 2023-03-29 10:24 | PM.IMPN ---
Progress Note: A&P Assessment and Plan (1) Hypotension: Code(s): I95.9 - Hypotension, unspecified Status: Acute Assessment and Plan: Likely secondary dehydration and also blood pressure medications. BP medications on hold. (2) Acute kidney injury: Code(s): N17.9 - Acute kidney failure, unspecified Status: Acute Assessment and Plan: Meds on hold Monitor electrolytes and kidney function. Creatinine is improving. Appreciate Nephrology input. (3) Heart failure with reduced ejection fraction: Code(s): I50.20 - Unspecified systolic (congestive) heart failure Status: Acute Assessment and Plan: Entresto on hold secondary to low blood pressure. (4) Chronic anemia: Code(s): D64.9 - Anemia, unspecified Status: Acute Assessment and Plan: Worse because of dilution. Transfuse today. (5) Stage IV breast cancer in female: Code(s): C50.919 - Malignant neoplasm of unspecified site of unspecified female breast Status: Chronic Assessment and Plan: Will need follow-up with Oncology (6) Chronic anticoagulation: Code(s): Z79.01 - [facility] (current) use of anticoagulants Status: Acute Subjective Date/time seen: 03/29/23 10:24 Interval history: Labs noted, hemoglobin has dropped since yesterday. Likely dilutional. Exam Narrative: General: Thin, frail appearing female sitting up in bed in no acute distress. Weight: 43.8 kg. BMI: 19.5. HEENT: PERRL, EOMI. Sclera anicteric. Tacky mucous membranes. 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 Neck: Supple. Respiratory: Respirations are nonlabored. Lung sounds are diminished throughout upper otherwise clear to auscultation. Chest: Port-A-Cath in the left anterior chest. Cardiovascular: Regular rate and rhythm with S1-S2. Gastrointestinal: Abdomen is soft, flat, nontender, and nondistended with positive bowel sounds. Skin: Warm and dry. No rash or lesions on limited exam. Extremities: No cyanosis or clubbing. Mild lymphedema of the left upper extremity. Peripheral pulses intact. Neurological: Alert. Cranial nerves 2-12 are grossly intact. No gross focal deficits to casual conversation. Psychiatric: Pleasant and cooperative with normal mood and affect. Judgment and insight intact. Objective Data Vital Signs Vital Signs: Vital Signs - 24 hr 03/28/23 15:10 03/28/23 15:10 03/28/23 14:00 Temperature 97.9 F Pulse Rate 75 96 68 Respiratory Rate 16 16 16 Blood Pressure 119/70 104/66 104/37 L Pulse Oximetry 99 98 100 Oxygen Delivery 03/28/23 12:00 03/28/23 16:00 03/28/23 20:00 Temperature Pulse Rate 73 82 Respiratory Rate Blood Pressure Pulse Oximetry Oxygen Delivery Room Air 03/28/23 22:00 03/28/23 20:00 03/29/23 00:00 Temperature 98.3 F Pulse Rate 82 85 70 Respiratory Rate 18 Blood Pressure 100/48 L Pulse Oximetry 100 Oxygen Delivery 03/29/23 04:00 03/29/23 06:00 03/29/23 06:00 Temperature 97.5 F L Pulse Rate 77 79 Respiratory Rate 18 Blood Pressure 127/43 L 124/60 Pulse Oximetry 99 Oxygen Delivery 03/29/23 06:05 03/29/23 06:10 Temperature Pulse Rate Respiratory Rate Blood Pressure 95/58 L 98/59 L Pulse Oximetry Oxygen Delivery Intake/Output Intake/Output: Intake & Output 03/26/23 03/27/23 03/28/23 03/29/23 23:59 23:59 23:59 23:59 Intake Total 1999 1820 410 Output Total 180 Balance 1999 1640 410 Meds/Results Medications: Active Medications Generic Name Dose Route Start Last Admin Trade Name Freq PRN Reason Stop Dose Admin Acetaminophen 650 mg 03/27/23 23:51 Acetaminophen 325 Mg Tablet PO Q6H PRN Mild Pain (1-3) or Fever Apixaban 2.5 mg 03/28/23 09:00 03/29/23 10:08 Apixaban 2.5 Mg Tablet PO 2.5 mg Q12HR ASHA Administration Duloxetine HCl 30 mg 03/28/23 09:00 03/29/23 10
--- NOTE | 2023-03-29 11:05 | PM.PNCARD ---
Progress Note: A&P Assessment and Plan (1) Acute kidney injury: Code(s): N17.9 - Acute kidney failure, unspecified Status: Acute Assessment and Plan: In the setting of significant hypotension, Entresto use. Improving with IVFs, SCr 2.8 today (4.0) Entresto discontinued. Avoid all nephrotoxic agents at this time. Hold Lasix at this time as well. Monitor strict I/Os. Nephrology has been consulted, appreciate recs. Given this event, would not reattempt Entresto again in the future. (2) Hypotension: Code(s): I95.9 - Hypotension, unspecified Status: Acute Assessment and Plan: Likely precipitated by Entresto, which is now discontinued. Blood pressures are improving (3) Paroxysmal atrial fibrillation: Code(s): I48.0 - Paroxysmal atrial fibrillation Status: Acute Assessment and Plan: Continue Toprol, Eliquis. In sinus rhythm currently. (4) Heart failure with reduced ejection fraction: Code(s): I50.20 - Unspecified systolic (congestive) heart failure Status: Acute Assessment and Plan: Likely chemotherapy induced Continue Toprol. Stop Entresto. Given this event, would not reattempt Entresto again in the future. Hold Lasix. 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 Drop in H&H today but no evidence of bleeding. May be dilutional. Continue to monitor for bleeding, monitor H&H. Subjective Date/time seen: 03/29/23 11:05 Cardiology follow up for CMY Interval history: Stable, no acute events overnight. H/H 6.8/21.3 this a.m., PRBC's ordered. No complaints, denies any chest pain, shortness of breath, palpitations. No swelling. Review of Systems Review of Systems: All systems reviewed & are unremarkable except as noted in HPI and below (HPI) Exam Const: General: comfortable and no acute distress Other: Elderly frail female HENMT: Mouth: Yes dry mucous membranes Eyes: General: appearance normal, both eyes and all related structures Sclera: sclerae normal Neck: Neck: supple Resp: Effort & Inspection: normal respiratory effort Auscultation: clear to auscultation bilaterally Cardio: Rate: regular rate Rhythm: regular rhythm Heart sounds: no murmurs Skin: General skin exam: normal color Neuro: Speech: normal speech Extrem: General: normal to inspection Psych: Mental Status: mental status grossly normal Affect: normal affect Objective Data Vital Signs Vital Signs: Vital Signs - 24 hr 03/28/23 15:10 03/28/23 15:10 03/28/23 14:00 Temperature 36.6 C Pulse Rate 75 96 68 Respiratory Rate 16 16 16 Blood Pressure 119/70 104/66 104/37 L Pulse Oximetry 99 98 100 Oxygen Delivery 03/28/23 12:00 03/28/23 16:00 03/28/23 20:00 Temperature Pulse Rate 73 82 Respiratory Rate Blood Pressure Pulse Oximetry Oxygen Delivery Room Air 03/28/23 22:00 03/28/23 20:00 03/29/23 00:00 Temperature 36.8 C Pulse Rate 82 85 70 Respiratory Rate 18 Blood Pressure 100/48 L Pulse Oximetry 100 Oxygen Delivery 03/29/23 04:00 03/29/23 06:00 03/29/23 06:00 Temperature 36.4 C L Pulse Rate 77 79 Respiratory Rate 18 Blood Pressure 127/43 L 124/60 Pulse Oximetry 99 Oxygen Delivery 03/29/23 06:05 03/29/23 06:10 Temperature Pulse Rate Respiratory Rate Blood Pressure 95/58 L 98/59 L Pulse Oximetry Oxygen Delivery Intake/Output Intake/Output: Intake & Output 03/26/23 03/27/23 03/28/23 03/29/23 23:59 23:59 23:59 23:59 Intake Total 1999 1820 410 Output Total 180 Balance 1999 1640 410 Meds/Results Medications: Active Medications Generic Name Dose Route Start Last Admin Trade Name Freq PRN Reason Stop Dose Admin Acetaminophen 650 mg 03/27/23 23:51 Acetaminophen 325 Mg Tablet PO Q6H PRN Mild Pain (1-3) or Fever Apix
--- NOTE | 2023-03-29 11:10 | PM.PNNEP ---
Progress Note: A&P Assessment and Plan (1) Acute kidney injury: Code(s): N17.9 - Acute kidney failure, unspecified Status: Acute Assessment and Plan: improving suspect related to acute on chronic hypotension in the context of Entresto use however, other medications could be playing a role: verzenio has been associated with elevated creatinines was also on diuretics agree with hold Entresto and diuretics continue trial of IVFs evaluation to date: renal ultrasound normal urine electrolytes non-prerenal urine eosinophils negative CPK normal follow trend of repeat labs and UOP (2) Chronic kidney disease, stage IV (severe): Code(s): N18.4 - Chronic kidney disease, stage 4 (severe) Status: Chronic Assessment and Plan: baseline creatinine ~ 1.7mg/dl (December 2022) presumably due to CHF, diuretics, MICHELLE, and age-related change (3) Hypotension: Code(s): I95.9 - Hypotension, unspecified Status: Acute Assessment and Plan: chronically low at baseline (~ 90s systolic) precipitated by entresto and perhaps diminished oral intake holding entresto and diuretics follow trend of hemodynamics (4) Paroxysmal atrial fibrillation: Code(s): I48.0 - Paroxysmal atrial fibrillation Status: Acute Assessment and Plan: continue rate control strategy on anticoagulation (5) Heart failure with reduced ejection fraction: Code(s): I50.20 - Unspecified systolic (congestive) heart failure Status: Acute Assessment and Plan: presumably chemotherapy induced remains on Toprol off entresto and diuretics at this time (6) Stage IV breast cancer in female: Code(s): C50.919 - Malignant neoplasm of unspecified site of unspecified female breast Status: Chronic Assessment and Plan: on chemotherapy Will continue to follow. Subjective Date/time seen: 03/29/23 11:10 Interval history: Follow-up for acute kidney injury/acute renal failure on top of chronic kidney disease. States she feels reasonably well at the time of my visit; low H/H noted by AM labs so planning PRBC transfusion today; however, renal function has improved significantly; no apparent distress noted; no issues/events overnight or earlier this morning. Exam Narrative: General: frail and elderly female in NAD Heart: normal S1 and S2; no rub Lungs: clear to auscultation Abdomen: soft, nontender, nondistended, positive bowel sounds Extremities: no cyanosis or clubbing; no edema Skin: warm and dry Objective Data Vital Signs Vital Signs: Vital Signs Temp Pulse Resp BP Pulse Ox O2 Del Method 03/29/23 06:10 98/59 L 03/29/23 06:05 95/58 L 03/29/23 06:00 124/60 03/29/23 06:00 97.5 F L 79 18 127/43 L 99 03/29/23 04:00 77 03/29/23 00:00 70 03/28/23 20:00 85 03/28/23 22:00 98.3 F 82 18 100/48 L 100 03/28/23 20:00 Room Air 03/28/23 16:00 82 03/28/23 14:00 97.9 F 68 16 104/37 L 100 03/28/23 15:10 96 16 104/66 98 03/28/23 15:10 75 16 119/70 99 Intake/Output Intake/Output: Intake & Output 03/26/23 03/27/23 03/28/23 03/29/23 23:59 23:59 23:59 23:59 Intake Total 1999 1820 410 Output Total 180 Balance 1999 1640 410 Meds/Results Medications: Active Medications Generic Name Dose Route Start Last Admin Trade Name Freq PRN Reason Stop Dose Admin Acetaminophen 650 mg 03/27/23 23:51 Acetaminophen 325 Mg Tablet PO Q6H PRN Mild Pain (1-3) or Fever Apixaban 2.5 mg 03/28/23 09:00 03/29/23 10:08 Apixaban 2.5 Mg Tablet PO 2.5 mg Q12HR ASHA Administration Duloxetine HCl 30 mg 03/28/23 09:00 03/29/23 10:08 Duloxetine Hcl 30 Mg Capsule.Dr PO 30 mg DAILY ASHA Administration Lactated Ringer's 1,000 mls @ 75 mls/hr 03/28/23 01:20 03/28/23 15:05 Lr - Lactated Ringers Iv IV CONT 75
--- NOTE | 2023-03-29 11:10 | P.PNNP_ITS ---
Progress Note: A&P Assessment and Plan (1) Acute kidney injury: Code(s): N17.9 - Acute kidney failure, unspecified Status: Acute Assessment and Plan: * improving * suspect related to acute on chronic hypotension in the context of Entresto use * however, other medications could be playing a role: * verzenio has been associated with elevated creatinines * was also on diuretics * agree with hold Entresto and diuretics * continue trial of IVFs * evaluation to date: * renal ultrasound normal * urine electrolytes non-prerenal * urine eosinophils negative * CPK normal * follow trend of repeat labs and UOP (2) Chronic kidney disease, stage IV (severe): Code(s): N18.4 - Chronic kidney disease, stage 4 (severe) Status: Chronic Assessment and Plan: * baseline creatinine ~ 1.7mg/dl (December 2022) * presumably due to CHF, diuretics, MICHELLE, and age-related change (3) Hypotension: Code(s): I95.9 - Hypotension, unspecified Status: Acute Assessment and Plan: * chronically low at baseline (~ 90s systolic) * precipitated by entresto and perhaps diminished oral intake * holding entresto and diuretics * follow trend of hemodynamics (4) Paroxysmal atrial fibrillation: Code(s): I48.0 - Paroxysmal atrial fibrillation Status: Acute Assessment and Plan: * continue rate control strategy * on anticoagulation (5) Heart failure with reduced ejection fraction: Code(s): I50.20 - Unspecified systolic (congestive) heart failure Status: Acute Assessment and Plan: * presumably chemotherapy induced * remains on Toprol * off entresto and diuretics at this time (6) Stage IV breast cancer in female: Code(s): C50.919 - Malignant neoplasm of unspecified site of unspecified female breast Status: Chronic Assessment and Plan: * on chemotherapy Will continue to follow. Subjective Date/time seen: 03/29/23 11:10 Interval history: Follow-up for acute kidney injury/acute renal failure on top of chronic kidney disease. States she feels reasonably well at the time of my visit; low H/H noted by AM labs so planning PRBC transfusion today; however, renal function has improved significantly; no apparent distress noted; no issues/events overnight or earlier this morning. Exam Narrative: General: frail and elderly female in NAD Heart: normal S1 and S2; no rub Lungs: clear to auscultation Abdomen: soft, nontender, nondistended, positive bowel sounds Extremities: no cyanosis or clubbing; no edema Skin: warm and dry Objective Data Vital Signs Vital Signs: Vital Signs Temp Pulse Resp BP Pulse Ox O2 Del Method 03/29/23 06:10 98/59 L 03/29/23 06:05 95/58 L 03/29/23 06:00 124/60 03/29/23 06:00 97.5 F L 79 18 127/43 L 99 03/29/23 04:00 77 03/29/23 00:00 70 03/28/23 20:00 85 03/28/23 22:00 98.3 F 82 18 100/48 L 100 03/28/23 20:00 Room Air 03/28/23 16:00 82 03/28/23 14:00 97.9 F 68 16 104/37 L 100 03/28/23 15:10 96 16 104/66 98 03/28/23 15:10 75 16 119/70 99 Intake/Output Intake/Output: Intake & Output 03/26/23 03/27/23
--- NOTE | 2023-03-29 11:29 | PCCCNOTE ---
On 03/29/23, the student, [Shanda Isabel ], provided care and completed [facility] documentation on this patient. I have reviewed the student's documentation and agree with the findings.
[2023-03-29] MEDS: SODIUM CHLORIDE 0.9% IV 250 ML 30 ML IV CONT (12:40)
[2023-03-29 16:22] LABS: IFOB Positive Control Positive; Immunochemical Fecal Occult Bl Negative (N)
[2023-03-29] MEDS: LOPERAMIDE HCL 2 MG CAPSULE PO (19:55)
[2023-03-29 20:02] LABS: Hematocrit 33.1 % (37.0-47.0); Hemoglobin 10.8 g/dL (12.0-15.0)
[2023-03-30] VITALS: PULSE 82
[2023-03-30] MEDS: LACTATED RINGERS 1,000 ML 75 ML IV CONT (00:01)
[2023-03-30 04:00] VITALS: PULSE 81
[2023-03-30 05:55] VITALS: BP 149/54
[2023-03-30 06:00] VITALS: BP 135/76; BP 149/54; PULSE 80; RESP 18; TEMP 36.4; O2SAT 99
[2023-03-30 06:05] VITALS: BP 134/78
--- NOTE | 2023-03-30 06:42 | P.CDI_ITS ---
severe CDI Query Clarification Request BMI 20.7 Nutritional Diagnostic Statement Severe protein calorie malnutrition related to chronic illness, loss of appetite as evidence by weight loss 13% / 2 months; inadequate intake <75% needs >1 month. For further information please refer to the comprehensive nutrition assessment. Please clarify severity of protein calorie malnutrition * Mild * Moderate * Severe * Other/ Unspecified
--- NOTE | 2023-03-30 06:47 | P.CDI_ITS ---
acute systolic CDI Query Clarification Request Documented history of CHF. CHF noted on assessment and plan. Elevated BNP on 03/27/23 lab work. Entresto listed as a home medication Furosemide listed as a home medication. Please specify type and acuity of heart failure if known. * Acute * Chronic * Acute on Chronic * Unknown * Systolic * Diastolic * Combined Systolic and Diastolic * Unknown
--- NOTE | 2023-03-30 06:47 | WPDCDIQUERY2 ---
CDI Query Clarification Request Documented history of CHF. CHF noted on assessment and plan. Elevated BNP on 03/27/23 lab work. Entresto listed as a home medication Furosemide listed as a home medication. Please specify type and acuity of heart failure if known. Acute Chronic Acute on Chronic Unknown Systolic Diastolic Combined Systolic and Diastolic Unknown
[2023-03-30 07:25] LABS: Basophils Absolute Auto 0.1 K/mm3 (0.0-0.1); Basophils Percent Auto 1.8 % (0.2-1.2); Eosinophils Absolute Auto 0.1 K/mm3 (0-0.3); Hematocrit 32.7 % (37.0-47.0); Hemoglobin 10.8 g/dL (12.0-15.0); Immature Granulocyte Absolute 0.02 K/mm3 (0.00-0.031); Immature Granulocyte Percent A 0.7 % (0-0.5); Lymphocytes Absolute Auto 1.38 K/mm3 (0.9-3.2); Mean Corpuscular Hemoglobin 29.7 pg (26-34); Mean Corpuscular Volume 89.8 fl (80-100); Mean Platelet Volume 9.5 fl (7.4-10.4); Monocytes Absolute Auto 0.2 K/mm3 (0.1-0.6); Monocytes Percent Auto 6.9 % (2.6-8.5); Neutrophils Percent Auto 36.6 % (45.5-73.1); Platelet Count Result 124 k/mm3 (150-375); Red Blood Count 3.64 M/mm3 (4.2-5.4); White Blood Count 2.8 K/mm3 (4.5-10.0)
[2023-03-30 07:43] LABS: Albumin Level 3.2 g/dL (3.5-5.1); Anion Gap 4 mmol/L (8-16); Blood Urea Nitrogen 28 mg/dL (7-17); Calcium 7.4 mg/dL (8.4-10.2); Carbon Dioxide 22 mmol/L (22-30); Chloride 114 mmol/L (98-107); Estimated Glomerular Filt Rate 23; Glucose 76 mg/dL (65-110); Phosphorus 2.7 mg/dL (2.5-4.5); Sodium 140 mmol/L (137-145)
[2023-03-30 09:00] VITALS: PULSE 83
[2023-03-30] MEDS: DULoxetine HCL 30 MG CAPSULE.DR PO (09:02)
[2023-03-30] MEDS: APIXABAN 2.5 MG TABLET PO (09:02)
--- NOTE | 2023-03-30 10:15 | P.PNNP_ITS ---
Progress Note: A&P Assessment and Plan (1) Acute kidney injury: Code(s): N17.9 - Acute kidney failure, unspecified Status: Acute Assessment and Plan: * improving * suspect related to acute on chronic hypotension in the context of Entresto use * however, other medications could be playing a role: * verzenio has been associated with elevated creatinines * was also on diuretics * agree with hold Entresto and diuretics * evaluation to date: * renal ultrasound normal * urine electrolytes non-prerenal * urine eosinophils negative * CPK normal * follow trend of repeat labs and UOP (2) Chronic kidney disease, stage IV (severe): Code(s): N18.4 - Chronic kidney disease, stage 4 (severe) Status: Chronic Assessment and Plan: * baseline creatinine ~ 1.7mg/dl (December 2022) * presumably due to CHF, diuretics, MICHELLE, and age-related change (3) Hypotension: Code(s): I95.9 - Hypotension, unspecified Status: Acute Assessment and Plan: * chronically low at baseline (~ 90s systolic) * precipitated by entresto and perhaps diminished oral intake * holding entresto and diuretics * follow trend of hemodynamics * consider use of midodrine if persists (4) Paroxysmal atrial fibrillation: Code(s): I48.0 - Paroxysmal atrial fibrillation Status: Acute Assessment and Plan: * continue rate control strategy * on anticoagulation (5) Heart failure with reduced ejection fraction: Code(s): I50.20 - Unspecified systolic (congestive) heart failure Status: Acute Assessment and Plan: * presumably chemotherapy induced * remains on Toprol * off entresto and diuretics at this time (6) Stage IV breast cancer in female: Code(s): C50.919 - Malignant neoplasm of unspecified site of unspecified female breast Status: Chronic Assessment and Plan: * on chemotherapy Will continue to follow. Subjective Date/time seen: 03/30/23 10:15 Interval history: Follow-up for acute kidney injury/acute renal failure on top of chronic kidney disease. No apparent issues or problems to report at the time of my visit; overall, feels reasonably well; no events overnight or earlier this morning; stable hemodynamics noted with ongoing improvement in renal function noted. Exam Narrative: General: frail and elderly female in NAD Heart: normal S1 and S2; no rub Lungs: clear to auscultation Abdomen: soft, nontender, nondistended, positive bowel sounds Extremities: no cyanosis or clubbing; no edema Skin: warm and intact Objective Data Vital Signs Vital Signs: Vital Signs Temp Pulse Resp BP Pulse Ox O2 Del Method 03/30/23 09:00 83 03/30/23 06:05 134/78 03/30/23 06:00 135/76 03/30/23 05:55 149/54 H 03/30/23 06:00 97.5 F L 80 18 149/54 H 99 03/30/23 04:00 81 03/30/23 00:00 82 03/29/23 21:43 97.3 F L 74 18 145/57 H 100 03/29/23 20:00 Room Air 03/29/23 20:00 82 03/29/23 18:23 97.7 F 79 20 152/73 H 100 03/29/23 17:23 98 F 85 22 H 153/67 H 100 03/29/23 16:23 97.8 F 79 16 138/50 L 100 03/29/23 15:23 97.3 F L 73 18 136/53 L 98 03/29/23 16:00 75 03/29/23 14:50 97.9 F 76 16 119/44
--- NOTE | 2023-03-30 10:15 | PM.PNNEP ---
Progress Note: A&P Assessment and Plan (1) Acute kidney injury: Code(s): N17.9 - Acute kidney failure, unspecified Status: Acute Assessment and Plan: improving suspect related to acute on chronic hypotension in the context of Entresto use however, other medications could be playing a role: davidio has been associated with elevated creatinines was also on diuretics agree with hold Entresto and diuretics evaluation to date: renal ultrasound normal urine electrolytes non-prerenal urine eosinophils negative CPK normal follow trend of repeat labs and UOP (2) Chronic kidney disease, stage IV (severe): Code(s): N18.4 - Chronic kidney disease, stage 4 (severe) Status: Chronic Assessment and Plan: baseline creatinine ~ 1.7mg/dl (December 2022) presumably due to CHF, diuretics, MICHELLE, and age-related change (3) Hypotension: Code(s): I95.9 - Hypotension, unspecified Status: Acute Assessment and Plan: chronically low at baseline (~ 90s systolic) precipitated by entresto and perhaps diminished oral intake holding entresto and diuretics follow trend of hemodynamics consider use of midodrine if persists (4) Paroxysmal atrial fibrillation: Code(s): I48.0 - Paroxysmal atrial fibrillation Status: Acute Assessment and Plan: continue rate control strategy on anticoagulation (5) Heart failure with reduced ejection fraction: Code(s): I50.20 - Unspecified systolic (congestive) heart failure Status: Acute Assessment and Plan: presumably chemotherapy induced remains on Toprol off entresto and diuretics at this time (6) Stage IV breast cancer in female: Code(s): C50.919 - Malignant neoplasm of unspecified site of unspecified female breast Status: Chronic Assessment and Plan: on chemotherapy Will continue to follow. Subjective Date/time seen: 03/30/23 10:15 Interval history: Follow-up for acute kidney injury/acute renal failure on top of chronic kidney disease. No apparent issues or problems to report at the time of my visit; overall, feels reasonably well; no events overnight or earlier this morning; stable hemodynamics noted with ongoing improvement in renal function noted. Exam Narrative: General: frail and elderly female in NAD Heart: normal S1 and S2; no rub Lungs: clear to auscultation Abdomen: soft, nontender, nondistended, positive bowel sounds Extremities: no cyanosis or clubbing; no edema Skin: warm and intact Objective Data Vital Signs Vital Signs: Vital Signs Temp Pulse Resp BP Pulse Ox O2 Del Method 03/30/23 09:00 83 03/30/23 06:05 134/78 03/30/23 06:00 135/76 03/30/23 05:55 149/54 H 03/30/23 06:00 97.5 F L 80 18 149/54 H 99 03/30/23 04:00 81 03/30/23 00:00 82 03/29/23 21:43 97.3 F L 74 18 145/57 H 100 03/29/23 20:00 Room Air 03/29/23 20:00 82 03/29/23 18:23 97.7 F 79 20 152/73 H 100 03/29/23 17:23 98 F 85 22 H 153/67 H 100 03/29/23 16:23 97.8 F 79 16 138/50 L 100 03/29/23 15:23 97.3 F L 73 18 136/53 L 98 03/29/23 16:00 75 03/29/23 14:50 97.9 F 76 16 119/44 L 100 03/29/23 13:50 97.0 F L 81 18 125/68 98 03/29/23 12:50 96.9 F L 80 16 121/56 L 100 03/29/23 15:07 97.9 F 76 16 119/44 L 100 03/29/23 14:00 97 F L 81 18 125/68 98 03/29/23 12:00 98 03/29/23 12:34 97.3 F L 82 16 124/52 L 100 Intake/Output Intake/Output: Intake & Output 03/27/23 03/28/23 03/29/23 03/30/23 23:59 23:59 23:59 23:59 Intake Total 1999 1820 2172 1290 Output Total 180 Balance 1999 1640 2172 1290 Meds/Results Medications: Active Medications Generic Name Dose Route Start Last Admin Trade Name Freq PRN Reason Stop Dose Admin Acetaminophen 650 mg 03/27/23 23:51 Acetaminophen 325 Mg Tablet P
--- NOTE | 2023-03-30 10:30 | PM.DS ---
DS: Admitting Diagnosis Discharge Date March 30, 2023 Admitting Diagnosis Acute kidney injury DS: Discharge Diagnosis Discharge Diagnosis (1) Hypotension: Code(s): I95.9 - Hypotension, unspecified Status: Acute Assessment and Plan: Likely secondary dehydration and also blood pressure medications. BP medications on hold. (2) Acute kidney injury: Code(s): N17.9 - Acute kidney failure, unspecified Status: Acute Assessment and Plan: Meds on hold Monitor electrolytes and kidney function. Creatinine is improving. Appreciate Nephrology input. (3) Heart failure with reduced ejection fraction: Code(s): I50.20 - Unspecified systolic (congestive) heart failure Status: Acute Assessment and Plan: Entresto on hold secondary to low blood pressure. (4) Chronic anemia: Code(s): D64.9 - Anemia, unspecified Status: Acute Assessment and Plan: Worse because of dilution. Transfuse today. (5) Stage IV breast cancer in female: Code(s): C50.919 - Malignant neoplasm of unspecified site of unspecified female breast Status: Chronic Assessment and Plan: Will need follow-up with Oncology (6) Chronic anticoagulation: Code(s): Z79.01 - terminal gauger (current) use of anticoagulants Status: Acute DS: Summary Hospital Course Hospital Course: Admitted for acute kidney injury likely secondary dehydration Will and Entresto as a cardiac medication. These medications were on hold the patient is given IV fluids. She tolerated well her kidney function subsequently improved. We will hold her Lasix on discharge. We will stop her Entresto 1 discharge. Patient can follow Cardiology and nephrology. Time Spent with Patient Time attestation: Total time spent providing and/or coordinating discharge services: Exam Narrative: General: Thin, frail appearing female sitting up in bed in no acute distress. Weight: 43.8 kg. BMI: 19.5. HEENT: PERRL, EOMI. Sclera anicteric. Tacky mucous membranes. 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 Neck: Supple. Respiratory: Respirations are nonlabored. Lung sounds are diminished throughout upper otherwise clear to auscultation. Chest: Port-A-Cath in the left anterior chest. Cardiovascular: Regular rate and rhythm with S1-S2. Gastrointestinal: Abdomen is soft, flat, nontender, and nondistended with positive bowel sounds. Skin: Warm and dry. No rash or lesions on limited exam. Extremities: No cyanosis or clubbing. Mild lymphedema of the left upper extremity. Peripheral pulses intact. Neurological: Alert. Cranial nerves 2-12 are grossly intact. No gross focal deficits to casual conversation. Psychiatric: Pleasant and cooperative with normal mood and affect. Judgment and insight intact. DS: Data Data Completed and Pending Labs on day of discharge: Labs from last 24 hours 03/30/23 03/29/23 03/29/23 06:42 19:46 15:22 WBC 2.8 L RBC 3.64 L Hgb 10.8 L 10.8 L D Hct 32.7 L 33.1 L MCV 89.8 MCH 29.7 D MCHC 33.0 RDW 17.0 H Plt Count 124 L MPV 9.5 Immature Gran % (Auto) 0.7 H Neut % (Auto) 36.6 L Lymph % (Auto) 50.0 H [place] % (Auto) 6.9 Eos % (Auto) 4.0 Baso % (Auto) 1.8 H Lymph # (Auto) 1.38 [place] # (Auto) 0.2 Eos # (Auto) 0.1 Baso # (Auto) 0.1 Abs Immat Gran (auto) 0.02 Absolute Neuts (auto) 1.0 L Absolute Nucleated RBC 0.0 Nucleated RBC % 0.0 Sodium 140 Potassium 4.0 Chloride 114 H Carbon Dioxide 22 Anion Gap 4 L BUN 28 H D Creatinine 2.10 H Estim Creat Clear Calc Not Reportable Estimated GFR 23 L Glucose 76 Calcium 7.4 L Phosphorus 2.7 Albumin 3.2 L Stl Occult Blood (IFOB) Negative Blood Type Antibody Screen Crossmatch 03/29/23 08:01 WBC RBC Hgb Hct MCV MCH MCHC RDW Plt Count MPV Immature Gr
[2023-04-02 14:16] LABS: Chloride Rand Ur <20 mmol/L (32-290); Creatinine Random Urine 65 mg/dL (20-275)
== END 2023-03-30 11:55 | disposition home or self-care (01) | DRG 682 ==
LOC: ANHED 13:30 → ANH3MEDSUR 17:31
PROVIDERS: Internal Medicine Nephrology; Physician Assistant; Admitting Provider Internal Medicine; Emergency Provider Emergency Medicine; PCP Family Medicine; Visit Provider Chiropractor
DX: N17.9 Acute kidney failure, unspecified (principal); E43 Unspecified severe protein-calorie malnutrition; I50.21 Acute systolic (congestive) heart failure; Z68.1 Body mass index [BMI] 19.9 or less, adult; I95.9 Hypotension, unspecified; E86.0 Dehydration; C50.919 Malignant neoplasm of unspecified site of unspecified female breast; T50.995A Adverse effect of other drugs, medicaments and biological substances, initial encounter; G47.33 Obstructive sleep apnea (adult) (pediatric); N18.4 Chronic kidney disease, stage 4 (severe); I48.0 Paroxysmal atrial fibrillation; D63.1 Anemia in chronic kidney disease; E11.22 Type 2 diabetes mellitus with diabetic chronic kidney disease; G51.0 Bell's palsy; T45.1X5S Adverse effect of antineoplastic and immunosuppressive drugs, sequela; Z20.822 Contact with and (suspected) exposure to COVID-19; Z92.21 Personal history of antineoplastic chemotherapy; Z79.01 Long term (current) use of anticoagulants; Z79.899 Other long term (current) drug therapy; Z88.1 Allergy status to other antibiotic agents
CPT/HCPCS: 36415; 36430; 71046; 76775; 80048; 80053; 80069; 81001; 81050; 82274; 82436; 82550; 82570; 83605; 83735; 83880; 84100; 84156; 84300; 84443; 84484; 84540; 85014; 85018; 85025; 85027; 85610; 85730; 85999; 86850; 86900; 86901; 86923; 87040; 87637; 93005; 96361; 96365; 99285; A9270; G0378; J3475; J7030; J7050; J7120; P9016

== ENCOUNTER 2023-11-05 08:30 | Outpatient (CLI) | payer MEDICARE, SELFPAY ==
--- NOTE | ~2023-11-05 | US_ITS ---
EXAMINATION: US venous doppler UE LT DATE: 11/05/2023 09:28 INDICATION: Left breast cancer with swelling in the left upper extremity TECHNIQUE: Grayscale images without and with compression and Doppler images of the left upper extremi ty veins were obtained. COMPARISON: None. FINDINGS: The left internal jugular vein, subclavian vein, axillary vein, brachial vein, basilic vein, cephalic vein, radial vein, and ulnar vein are patent. IMPRESSION: 1. Patent left upper extremity veins. No evidence of venous thrombosis. Reviewed, dictated and finalized at location A. OF GRADUATE STUDIES
== END 2023-11-05 08:31 | disposition home or self-care (01) ==
PROVIDERS: PCP Family Medicine; Visit Provider Internal Medicine Medical Oncology
DX: C50.612 Malignant neoplasm of axillary tail of left female breast (principal); Z17.0 Estrogen receptor positive status [ER+]; R60.0 Localized edema
CPT/HCPCS: 93971

== ENCOUNTER 2025-02-05 08:15 | Emergency (ER) | payer MEDICARE, SELFPAY ==
--- NOTE | 2025-02-05 08:18 | ED_ITS ---
HPI - Female Genitourinary General Chief complaint: Urogenital-Female Stated complaint: uti/bladder Time Seen by Provider: 02/05/25 08:18 Source: patient Mode of arrival: ambulatory Limitations: no limitations History of Present Illness HPI Narrative: Patient is 80-year-old female who presents with 3 nights of frequency, pelvic pressure and low-grade fever. Patient states she has chronic back pain but states SARS no change in back pain. Denies any burning with urination, blood in urine, nausea, vomiting, diarrhea. MD elicited complaint: dysuria Related Data Home Medications ?Medication ?Instructions ?Recorded ?Confirmed ?Last Taken ?Type apixaban 2.5 mg tablet (Eliquis) 2.5 mg PO BID 01/30/23 02/05/25 03/27/23 Hi story duloxetine 30 mg capsule,delayed 30 mg PO DAILY 01/30/23 02/05/25 1 Day Ago History release ~03/26/23 exemestane 25 mg tablet 25 mg PO DAILY 01/30/23 02/05/25 03/27/23 History furosemide 40 mg tablet 20 mg PO DAILY 01/30/23 02/05/25 03/27/23 History lifitegrast 5 % eye drops in a 2 drp EACH EYE BID 01/30/23 02/05/25 1 Week Ago History dropperette (Xiidra) ~03/20/23 magnesium oxide 400 mg (241.3 mg 400 mg PO DAILY 01/30/23 02/05/25 03/27/23 History magnesium) tablet potassium chloride 20 mEq 20 meq PO DAILY 01/30/23 02/05/25 1 Day Ago History tablet,extended release(part/cryst) ~03/26/23 Verzenio 150 mg PO BID 03/27/23 02/05/25 03/27/23 History metoprolol succinate 25 mg 25 mg PO DAILY 03/27/23 02/05/25 03/27/23 History tablet,extended release 24 hr calcitriol 0.25 mcg capsule mcg 02/05/25 Unknown History Allergies Allergy/AdvReac Type Severity Reaction Status Date / Time amoxicillin AdvReac Severe Swelling Verified 02/05/25 08:23 of Lip/Tongue/Throat ciprofloxacin AdvReac Mild Rash Verified 02/05/25 08:23 Review of Systems Review of Systems: All systems reviewed & are unremarkable except as noted in HPI and below Constitutional: Constitutional: Denies chills, Denies fever(s), Denies headache(s), Denies malaise and Denies weakness Eyes: Eyes: Denies change in vision, Denies eye discharge and Denies ir ritation ENT: Denies otalgia, Denies headache(s), Denies nasal congestion, Denies nasal discharge, Denies sinus pain and Denies sore throat Cardiovascular: Cardiovascular: Denies chest pain, Denies edema, Denies palpitations and Denies dyspnea Respiratory: Respiratory: Denies cough and Denies dyspnea Gastrointestinal: Gastrointestinal: Denies abdominal pain, Denies diarrhea, Denies nausea and Denies vomiting Genitourinary: Genitourinary: Denies hematuria, Reports nocturia, Denies dysuria, Reports pelvic pain, Denies flank pain and Denies urinary urgency Musculoskeletal: Musculoskeletal: Denies back pain and Denies numbness Integumentary/Breasts: Skin/Breast: Denies pruritus and Denies rash Neurologic: Denies headache(s), Denies numbness and Denies weakness Psychiatric: Psychiatric: Reports no additional psychiatric complaints Endocrine: Endocrine: Denies palpitations PMFSH Past Medical History Medical History Chronic anticoagulation Chronic anemia Macular degeneration Gastroesophageal reflux disease Arthritis Hypertension No longer on medication following weight loss. Paroxysmal atrial fibrillation Obstructive sleep apnea No longer able to tolerate CPAP with her facial nerve palsy. 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 History of shingles Surgical History Surgical History History of tubal ligation History of cataract extraction History of vertebroplasty History of section History of cardiac radiofrequency ablation Family History Family History Mother Congestive heart failure Father Leaky heart valve Social History Social History Social History: Surrogate medical decision maker: Flavio Burgos, spouse. Code status: Full code. Smoking status: Former smoker Additional smoking assessment comments: Social smoker Alcohol intake: current Drinks per week: 5 Alcohol use details: Drinks a glass of wine most evenings. Substance use: never Lack of Transportation: No Lack of Food: Never True Current Housing: I Have Housing Concerned About Future Housing: No Difficulty Paying Gas/Electric Bills: No Difficulty Paying for Meds: No Currently Unemployed: No Education: Bachelor's Degree Difficulty w/ Childcare or Family Care: No Additional living arrangements comments: Lives with spouse in [place]. Additional occupation/education comments: Retired from [employer], worked as a realtor thereafter. Spiritual care concerns: No Comments At time of signature, agree with nursing past medical, surgical, social and family history. There is no relevant family history pertinent to the presenting complaint. Exam Const: General: cooperative, healthy appearing, comfortable, no acute distress and well nourished Nutritional Appearance: well nourished Orientation/consciousness: patient oriented x3 HENMT: Head: normocephalic and atraumatic Ears: external ears normal Face/Nose/Sinus: Normal external nose present, Normal nares present and normal facial exam Face and sinus: normal facial exam Eyes: General: appearance normal, both eyes and all related structures Pupils: Equal, round and reactive pupils present EOM: EOMs intact bilaterally Neck: Neck: normal visual inspection, full ROM and supple Chest: Chest palpation & inspection: normal inspection of the chest Resp: Effort & Inspection: normal respiratory effort and able to speak in complete sentences Cardio: Rate: regular rate Rhythm: regular rhythm GI: Inspection: normal to inspection GI Palp: Yes Soft to palpation and Yes Tenderness to palpation present (GI) (Suprapubic ) : General: Yes no CVA tenderness Back/Spine/Pelvis: Back: no CVA tenderness Skin: General skin exam: normal color and no rashes or lesions noted Neuro: General: patient oriented x3 and moves all extremities Cranial nerves: Yes Equal, round and reactive pupils present Extrem: General: normal to inspection and full ROM Psych: Appearance: grossly normal and well kempt Course Course Emergency Course: Patient is aware of diagnosis, understands and agrees to treatment plan. Anticipatory guidance given. Patient agrees to follow-up as directed and is aware of reasons to seek care at the emergency department. Portions of this record may have been created with voice recognition software Level of Care: Express Care Visit Vital Signs Vital signs: Vital Signs Temperature 36.4 C 02/05/25 08:24 Pulse Rate 90 02/05/25 08:24 Respiratory Rate 20 02/05/25 08:24 Blood Pressure 130/63 02/05/25 08:24 Pulse Oximetry 100 02/05/25 08:24 Oxygen Delivery Room Air 02/05/25 08:24 Temperature 36.4 C 02/05/25 08:24 Pulse Rate 90 02/05/25 08:24 Respiratory Rate 20 02/05/25 08:24 Blood Pressure 130/63 02/05/25 08:24 Pulse Oximetry 100 02/05/25 08:24 Oxygen Delivery Room Air 02/05/25 08:24 Reviewed MDM - Female Genitourinary MDM Narrative Medical decision making narrative: Exam findings and UA show probable UTI; patient is non-toxic appearing and is in no distress. No CMT, adnexal tenderness, or evidence of pelvic etiology. Patient is appropriate for outpatient treatment and follow-up. Differential Diagnosis Differential diagnosis: Likely urinary tract infection, bacterial vaginosis, trichomoniasis, cervicitis, vaginitis and cystitis Medical Records Attestation: I reviewed the patient's medical records. Lab Data Attestation: I reviewed the patient's lab results. Labs: Lab Results 02/05/25 Range/Units 08:38 POC Urine Color Yellow POC Urine Clarity Clear POC Urine pH 5.0 POC Ur Specif [place] 1.020 POC Urine Protein 1+ (Negative) POC Ur Glucose (UA) Negative (Negative) POC Urine Ketones Trace (Negative) POC Urine Blood Negative (Negative) POC Urine Nitrite Negative (Negative) POC Urine Bilirubin Negative (Negative) POC Urine Urobilinogen 0.2 POC U Leukocyte Esteras 1+ (Negative) Discharge Plan Discharge Clinical Impression: Urinary tract infection Qualifiers: Urinary tract infection type: acute cystitis Hematuria presence: without hematuria Qualified Code(s): N30.00 - Acute cystitis without hematuria Patient Disposition: Home Condition: Stable Instructions: Urinary Tract Infection in Older Adults (ED) Additional Instructions: We will send a urine culture to the lab, based on your symptoms and urine dip we will start treatment today. If culture comes back and bacteria is not susceptible to antibiotic, your prescription may change. Your symptoms should improve within a day of starting antibiotics, but you should finish all the antibiotic pills you get. Otherwise your infection might come back Continue with increased water intake. Take Tylenol or ibuprofen as needed for pain or fever. Follow-up with primary care provider for urine recheck or see ER visit if condition worsens with high fever, nausea, vomiting, severe back pain Patient Language: Moldovan Prescriptions: New cephalexin 500 mg capsule 500 mg PO BID 5 Days Qty: 10 0RF No Action calcitriol 0.25 mcg capsule furosemide 40 mg tablet 20 mg PO DAILY potassium chloride 20 mEq tablet,ER particles/crystals 20 meq PO DAILY magnesium oxide 400 mg (241.3 mg magnesium) tablet 400 mg PO DAILY exemestane 25 mg tablet 25 mg PO DAILY duloxetine 30 mg capsule,delayed release(DR/EC) 30 mg PO DAILY Eliquis 2.5 mg tablet 2.5 mg PO BID Xiidra 5 % dropperette 2 drp EACH EYE BID metoprolol succinate 25 mg tablet extended release 24 hr 25 mg PO DAILY Verzenio tablet 150 mg PO BID Follow-up/Referrals: Tree Capone MD [Physician] - 3 Days Time of Disposition: 09:06
[2025-02-05 08:24] VITALS: BP 130/63; PULSE 90; RESP 20; TEMP 36.4; O2SAT 100
--- OUTSIDE RECORDS SUMMARY | 2025-02-05 08:29 | XMS_ITS | Encounter Summary ---
Author Organization [facility] Healthcare Address [address] [place] [address] Care Team Providers Care Timber Packer Name Role Phone Griffin Peterson MD Unavailable [phone] Zane Jeffery MD Unavailable Tahmina Antoine NP Unavailable + [phone] Vidhya Avila MD Unavailable [phone] Anuj Contreras MD Unavailable [phone] Johnny Green DO Unavailable [phone] Dev Concepcion MD Primary Care Provider + Jayne Jerez MD Unavailable [phone] Encounter Details Date Type Department Care Team (Late st Contact Info) Description 02/01/[address] [facility] Medical Group Cardiology [address] [place] [address] Jayne Jerez MD [facility] [address] Social History Tobacco Use Types Packs/Day Years Used Date Smoking Tobacco: Former Cigarettes 1 5 - 1984 Smokeless Tobacco: Never Alcohol Use Standard Drinks/Week Comments Not Currently 0 (1 standard drink = 0.6 oz pur e alcohol) AUDIT-C Answer Date Recorded Q1: How often do you have a drink containing alcohol? 4 or more times a week 01/08/2025 Q2: How many drinks containi ng alcohol do you have on a typical day when you are drinking? Patient does not drink Frequency of Binge Drinking Not on file 12/23 Personal Safety Answer Date Recorded Have you ever been in or are you currently in a harmful physical or emotional relationship or is someone making you feel afraid or unsafe? Denies 02/01/2025 Comments No Sex and Gender Information Value Date Recorded Sex Assigned at Not on file Legal Sex Female 1:01 AM DIE EQUIPMENT OPERATOR Gender Identity Female 10/21/2023 6:48 AM DIE EQUIPMENT OPERATOR Sexual Orientation Straight 10/21/2023 6: 48 AM DIE EQUIPMENT OPERATOR documented as of this encounter Miscellaneous Notes * Telephone Encounter - Chelsie Lisa RN - 02/01/2025 10:02 AM CDT Spoke with pt, pt reports elevated HR in the 160's and feeling weak. Pt took morning medications [id number] this morning with no change. Advised pt to go to ER for evaluation. Pt verbalizes understanding and states she will go to the ER in [place]. Will forward to RP as FYI. * Telephone Encounter - Shavonne Verduzco - 02/01/2025 9:49 AM CDT Pt states her HR has been fluctuating since last night, it has been going up to 160. Her BP at the moment is 117/76 HR 161. Reports feeling weak. Wants to know if she should come in for an EKG or what she should do. Please advise, thank you. Contact: documented in this encounter Plan of Treatment Not on file documented as of this encounter Visit Diagnoses Not on filedocumented in this encounter Care Teams Timber Packer Relationship Specialty Start Date End Date Dev Concepcion MD [address] [place] [address] [address] [place] [address] PCP - General Family Medicine 07/13/24 Griffin Peterson MD [address] [place] [address] [address] [place] [address] Surgery 05/23/20 Zane Jeffery MD [address] [facility] [address] [place] [address] Pain Management 06/27/20 Tahmina Antoine NP [address] [place] [address] Nurse Practitioner Medical Oncology 09/30/22 Vidhya Avila MD [address] [facility] [address] [place], [place] [address] Print Finishing Worker Gastroenterology 10/08/22 Anuj Contreras MD [address] [place] [address] [address] [place] [address] Radiation Oncologist Radiation Oncology 03/06/24 Johnny Green DO [address] [place] [address] Medical Oncologist/Forensic Ballistics Expert Hematology and Oncology 05/24/24 Jayne Jerez MD [address] [facility] [address] [place] [address] Consulting Physician Interventional Cardiology 12/22/24 documented as of this encounter
--- OUTSIDE RECORDS SUMMARY | 2025-02-05 08:29 | XMS_ITS | Encounter Summary ---
Author Organization [facility] Healthcare Address [address] [place] [address] Care Team Providers Care Casing Fluid Tender Name Role Phone Gwendolyn Lee MD Primary Care Provider + Anuj Contreras MD Unavailable [phone] Griffin Peterson MD Unavailable [phone] Zane Jeffery MD Unavailable Tahmina Antoine NP Unavailable + [phone] Vidhya Avila MD Unavailable [phone] Anuj Contreras MD Unavailable [phone] Johnny Green DO Unavailable [phone] Unknown, Notinfile Primary Care Provider Unavail able Dev Concepcion MD Primary Care Provider + Jayne Jerez MD Unavailable [phone] Encounter Details Date Type Department Care Team (Late st Contact Info) Description 03/16/20[address]ation [facility] Medical Office Building 2 Radiation Oncology [address] [place] [address] Social History Tobacco Use Types Packs/Day Years Used Date Smoking Tobacco: Former Cigarettes 1 5 - 1984 Smokeless Tobacco: Never Alcohol Use Standard Drinks/Week Comments Not Currently 0 (1 standard drink = 0.6 oz pur e alcohol) AUDIT-C Answer Date Recorded Q1: How often do you have a drink containing alcohol? 4 or more times a week 12/18/2022 Q2: How many drinks containi ng alcohol do you have on a typical day when you are drinking? 1 or 2 Q3: How often do you have si x or more drinks on one occasion? Never 12/18/2022 Comments No Sex and Gender Information Value Date Recorded Sex Assigned at Not on file Legal Sex Female 1:01 AM ARMED CUSTOM PROTECTION OFFICER Gender Identity Female 10/21/2023 6:48 AM ARMED CUSTOM PROTECTION OFFICER Sexual Orientation Straight 10/21/2023 6: 48 AM ARMED CUSTOM PROTECTION OFFICER documented as of this encounter Plan of Treatment Not on file documented as of this encounter Visit Diagnoses Not on filedocumented in this encounter Additional Health Concerns Infection Onset Date Last Indicated Resolved Time COVID: Suspected 11/27/2024 11/27/2024 11/27/2024 1:43 PM ARMED CUSTOM PROTECTION OFFICER C. difficile suspected 11/27/2024 11/27/202411/28 3:05 AM ARMED CUSTOM PROTECTION OFFICER documented as of this encounter Care Teams Casing Fluid Tender Relationship Specialty Start Date End Date Gwendolyn Lee MD PCP - General Family Medicine 07/15/18 05/31/24 Unknown, Notinfile PCP - General 06/01/24 07/12/24 Dev Concepcion MD [address] [place] [address] PCP - General Family Medicine 07/13/24 Anuj Contreras MD Consulting Physician Radiation Oncology 03/25/20 03/05/24 Griffin Peterson MD [address] [place] [address] Surgery 05/23/20 Zane Jeffery MD [address] [facility] [address] [place] [address] Pain Management 06/27/20 Tahmina Antoine, NEERU [address] [place] [address] Nurse Practitioner Medical Oncology 09/30/22 Vidhya Avila MD [address] [facility] [address] [place] [address] Gas Plant Worker Gastroenterology 10/08/22 Anuj Contreras MD [address] [place] [address] [address] [place], [place] [address] Radiation Oncologist Radiation Oncology 03/06/24 Johnny Green DO [address] [place] [id number] Medical Oncologist/Hose Mender Hematology and Oncology 05/24/24 Jayne Jerez MD [facility] [address] [place] [address] Consulting Physician Interventional Cardiology 12/22/24 documented as of this encounter
--- OUTSIDE RECORDS SUMMARY | 2025-02-05 08:29 | XMS_ITS | Encounter Summary ---
Author Organization [facility] Healthcare Address [address] [place] [address] Phone Care Team Providers Care Director Of Catering Name Role Phone Gwendolyn Lee MD Primary Care Provider + Anuj Contreras MD Unavailable [phone] Ad Manjarrez MD Unavailable [phone] [place] Peterson MD Unavailable [phone] Zane Jeffery MD Unavailable Byron [place] MD Unavailable [phone] Tahmina Antoine NP Unavailable + [phone] Vidhya Avila MD Unavailable [phone] Anuj Contreras MD Unavailable [phone] Johnny Green DO Unavailable [phone] Unknown, Notinfile Primary Care Provider Unavail able Dev Concepcion MD Primary Care Provider + Jayne Jerez MD Unavailable [phone] Encounter Details Date Type Department Care Team (Late st Contact Info) Description 10/21/2021 Social Work [facility] Oncology [address] [place] [address] [address] [place] [id number] Elmer Lundberg LCSW Social History Tobacco Use Types Packs/Day Years Used Date Smoking Tobacco: Former Cigarettes 1984 Smokeless Tobacco: Never Alcohol Use Standard Drinks/Week Comments Not Currently 0 (1 standard drink = 0.6 oz pur e alcohol) AUDIT-C Answer Date Recorded Q1: How often do you have a drink containing alcohol? 4 or more times a week 09/22/2021 Q2: How many drinks containi ng alcohol do you have on a typical day when you are drinking? 1 or 2 Frequency of Binge Drinking Not on file 08/26 Comments No Sex and Gender Information Value Date Recorded Sex Assigned at Not on file Legal Sex Female 1:01 AM RECOVERER Gender Identity Female 10/21/2023 6:48 AM RECOVERER Sexual Orientation Straight 10/21/2023 6: 48 AM RECOVERER documented as of this encounter Progress Notes * [place]mer Lundberg LCSW - 10/21/2021 2:23 PM CST [place] Slate Picker Brief Intervention Social Work Follow-Up Note: Medication Assistance Patient is unable to afford the co-pay for this medication. Social work spoke with patient to discuss assistance for the medication Ibrance (Adylitica). Additional information/Other: discussed application with patient, patient will complete with SW on 10/29/2021 VERER documented in this encounter Plan of Treatment Not on file documented as of this encounter Visit Diagnoses Not on filedocumented in this encounter Additional Health Concerns Infection Onset Date Last Indicated Resolved Time COVID: Suspected 11/27/2024 11/27/2024 11/27/2024 1:43 PM RECOVERER C. difficile suspected 11/27/2024 11/27/202411/28 3:05 AM RECOVERER documented as of this encounter Care Teams Director Of Catering Relationship Specialty Start Date End Date Gwendolyn Lee MD PCP - General Family Medicine 07/15/18 05/31/24 Unknown, Notinfile PCP - General 06/01/24 07/12/24 Dev Concepcion MD [address] [place] [address] [address] [place] [id number] PCP - General Family Medicine 07/13/24 Anuj Contreras MD Consulting Physician Radiation Oncology 03/25/20 03/05/24 Ad Manjarrez MD Medical Oncologist/Sprinkler Truck Driver Hematology and Oncology 04/05/20 06/02/22 Griffin Peterson MD [address] [place] [address] Surgery 05/23/20 Zane Jeffery MD [address] [facility] [place] [address] Pain Management 06/27/20 Byron [place] MD [address] [facility] [place] [address] Consulting Physician Medical Oncology 06/03/22 09/29/22 Tahmina Antoine, NEERU [address] [place] [address] [address] [place] [address] Nurse Practitioner Medical Oncology 09/30/22 Vidhya Avila MD [address] [facility] [address] [place] [address] Assembler [employer] Gastroenterology 10/08/22 Anuj Contreras MD [address] [facility] 160 [place], [place] [address] Radiation Oncologist Radiation Oncology 03/06/24 Johnny Green DO [address] [facility] [address] [place] [address] Medical Oncologist/Sprinkler Truck Driver Hematology and Oncology 05/24/24 Jayne Jerez MD [address] [place] [address], [place] [address] Consulting Physician Interventional Cardiology 12/22/24 documented as of this encounter
--- OUTSIDE RECORDS SUMMARY | 2025-02-05 08:30 | XMS_ITS ---
Author Organization [facility] [address] Address [address] [place] [address] Care Team Providers Care Combination Operator Name Role Phone Griffin Peterson MD Unavailable [phone] Zane Jeffery MD Unavailable Tahmina Antoine NP Unavailable [phone] Vidhya Avila MD Unavailable Anuj Contreras MD Unavailable [phone] Johnny Green DO Unavailable [phone] Dev Concepcion MD Primary Care Provider + Jayne Jerez MD Unavailable [phone] Active Problems Problem Noted Date Diagnosed Date Personal history of radiation therapy 05/17/2024 Paroxysmal atrial fibrillation 04/07/2024 Sleep apnea 01/19/2024 Overview (01/19/2024): on cpap Lymphedema of upper arm 11/23/2023 Bronchitis 09/19/2023 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 08/26/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 08/26/2023 Sensorineural hearing loss (SNHL) of both ears 1 10/26/2022 Acute sinusitis 07/05/2023 Medication side effects 06/08/2023 Disorder of musculoskeletal system 05/27/2023 Low blood pressure 05/27/2023 Complex cyst of uterine adnexa 05/27/2023 CKD (chronic kidney disease) stage 4, GFR 15-29 ml/min 04/20/2023 Neutropenia 04/20/2023 Encounter for adjustment and management of unspecified implanted device 02/24/2023 residential (current) use of aromatase inhibitors 02/18/2023 Congestive heart failure 01/21/2023 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 Essential hypertension 01/21/2023 Malignant tumor of breast 01/21/2023 Type 2 diabetes mellitus with hyperglycemia 12/25 Osteoporosis 01/21/2023 Acute on chronic congestive heart failure, unspecified heart failure type 12/18/2022 Alcohol abuse 10/29/2022 Malignant neoplasm of female breast 10/29/2022 Huerta's palsy 08/20/2022 Epistaxis 08/20/2022 Dizziness and giddiness 08/20/2022 Facial droop 07/27/2022 Anemia due to antineoplastic chemotherapy 2021 Pneumonia 07/13/2022 Dehydration 04/01/2022 Diarrhea 04/01/2022 Osteoporosis without current pathological fractu re 10/28/2021 Mitral valve insufficiency 03/05/2021 Status post ablation of atrial fibrillation 01/2020 Palpitations 08/28/2020 Chronic anticoagulation 08/28/2020 History of DVT (deep vein thrombosis) 08/16/2020 Preoperative clearance 04/03/2020 Persons encountering health services in other specified circumstances 03/21/2020 Encounter for person encountering health service s 03/21/2020 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 MICHELLE on CPAP 03/15/2019 Assessment & Plan (10/15/2023 8:56 AM FURNACE CHECKER): Due to continued symptoms, the patient will continue CPAP at 8 cm water pressure. Denied need for supplies. DME [employer] Assessment & Plan (02/26/2023 10:17 AM CDT): The patient stopped using CPAP at 8 cm water pressure in mid December 2022 because she has right facial paralysis and was not able to keep a seal. I will order a chinstrap for her through [employer]. She will follow-up with me in 6 months. Assessment & Plan (06/12/2022 8:23 AM CDT): The patient continues to be compliant with CPAP at 8 cm water pressure. Her DME supplier is [employer]. I will send an order to show her a variety of new styles of CPAP mask with new head gear to see if this will help per use the CPAP for longer periods at night. She will follow-up with me in 6 months. Assessment & Plan (12/19/2021 10:14 AM FURNACE CHECKER): Patient continue to wear CPAP at 8 cm water pressure while sleeping. Her DME is provider [employer]. I did send an order for new mask, hose and filter. Assessment & Plan (11/20/2020 8:23 AM FURNACE CHECKER): The patient will continue with CPAP therapy at 8 cm water pressure to treat obstructive sleep apnea. The DME company is provider [employer]. The patient is benefitting from CPAP therapy. Assessment & Plan (09/13/2019 11:04 AM FURNACE CHECKER): I will send an order to Provider [employer] to show her a variety of new styles of CPAP mask.. She continues to benefit from CPAP at 8 cm water pressure. Centrilobular emphysema 03/15/2019 Assessment & Plan (10/15/2023 8:56 AM FURNACE CHECKER): Due to continued symptoms, the patient has an albuterol inhaler to use on a p.r.n. basis and up to 4 times a day as needed for symptom control. Assessment & Plan (02/26/2023 10:17 AM CDT): The patient is breathing comfortably and does have an albuterol inhaler to use on a p.r.n. basis. Currently, she is using it about 1 time per week. Assessment & Plan (06/12/2022 8:22 AM CDT): The patient states that her breathing is comfortable and she is using albuterol 2 puffs q.i.d. on a p.r.n. basis. Assessment & Plan (12/19/2021 10:14 AM FURNACE CHECKER): I did reorder the patient's albuterol inhaler. The patient continues her albuterol as needed up to 4 times a day for shortness of breath. Assessment & Plan (11/20/2020 8:48 AM FURNACE CHECKER): The patient will continue with an albuterol rescue inhaler p.r.n. up to 4 times a day as needed for shortness of breath, cough, wheeze, or COPD symptoms. A 6 minutes walk test has been ordered to evaluate the patient shortness of breath to see if she needs oxygen therapy. Assessment & Plan (09/13/2019 11:05 AM FURNACE CHECKER): The patient has stage I COPD. I will prescribe her rescue inhaler for her to use on a p.r.n. basis. 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 Everolimus (Afinitor) PO Daily 28 day Cycles* Plan Start Date:09/07/2024 Plan Provider:Johnny Green DO Linked Problems 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, estrogen receptor positive (HCC) Treatment Medications Current Day (Day 1, Cycle 3 - Planned for 12/18/2024) everolimus (AFINITOR) everolimus (Afinitor) 10 m g tablet Fulvestrant 500 mg IM 28 Day Cycles - Breast* Plan Start Date:03/09/2024 Plan Provider:Johnny Green DO Linked Problems 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, estrogen receptor positive (HCC) Treatment Medications Current Day (Day 1 , Cycle 11 - Planned for 02/12/2025) Next Day (Day 1, Cycle 12 - Planned for 03/12/2025) fulvestrant (FASLODEX) fulvestrant (FASL ODEX) injection 500 mg fulvestrant (FASLODEX) injection 500 mg Other Current Plans IV Maintenance Therapy Plan* Plan Start Date:01/22/2022 Plan Provider:Johnny Green DO Linked Problems Encounter for adjustment and management of unspecified implanted device Treatment Medications No medications scheduled. Past Treatment and Therapy Plans Blood Products Plan Name Start Date Discontinue Date Treatment Medications Discontinue Reason Plan Provider ADULT BLOOD ADMINISTRATION FOR OUTPATIENT 07/17/2022 10/03/2024 No medications scheduled. 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 Therapy Complete Ad Manjarrez MD Oncology Treatment (2) Plan Name Start Date Discontinue Date Treatment Medications Discontinue Reason Plan Provider Cycles Fulvestrant 500 mg IM 28 Day Cycles - Breast 2 02/12/2022 fulvestrant (FASLODEX) Provider Discretion Ad Manjarrez MD 2 of 12 cycles started Specialty Infusion Treatment Plan Name Start Date Discontinue Date Treatment Medications Discontinue Reason Plan Provider Zoledronic Acid (ZOMETA) Infusion 02/24/2023 12/28/2023 No medications scheduled. Provider Discretion Johnny Green, DO Zoledronic Acid (Reclast) Infusion 02/24/2023 02/18/2023 No medications scheduled. Toxicity/Complic ation Johnny Green, DO denosumab (PROLIA) Injection 02/24/2023 02/18/2023 No medications scheduled. Financial Johnny Green, DO ALTEPLASE (CATHFLO ACTIVASE) - ORDERS FOR OCCLUDED CATHETERS 04/24/2020 06/03/2022 No medications scheduled. Therapy Complete Ad Manjarrez MD Radiation Treatments * Course [id number]/16/2024 - 04/06/2024 Treatment Period Energy Fraction Dose Fractions Total Dose Plans Planned LT AXILLA 03/16/2024 - 04/06/2024 267 15 / 4,005 Reference Points Delivered L [id number] 03/16/2024 - 04/06/2024 4,005 Lifetime Dose Tracking * Chemical Lifetime Dose Automatic Entry Manual Entr y doxorubicin 201.099 mg/m2 (318.6 mg) 201.099 mg/m2 (318.6 mg) 0 mg/m2 (0 mg) Fluoro Time 0.5 minutes 0.5 minutes 0 minutes cyclophosphamide 1,107.946 mg/m2 (1,792 mg) 1,107.946 mg/m2 (1,792 mg) 0 mg/m2 (0 mg) doxorubicin isotoxic equivalent (Please manually verify calculation) 201.099 mg/m2 (318.6 mg) 201.099 mg/m2 (318.6 mg) 0 mg/m2 (0 mg) Air kerma at the reference point (Ka,r) 6.63 mGy 6.63 mGy 0 mGy Resolved Problems Problem Noted Date Diagnosed Date Resolved Date Hyperlipidemia 08/19/2012 03/17/2022
--- OUTSIDE RECORDS SUMMARY | 2025-02-05 08:30 | XMS_ITS | Continuity of Care Document ---
Author Organization [facility] [place] [address] [place] [address] Phone Care Team Providers Care Horses Or Mules Teamster Name Role Phone Azalia Duque Unavailable Unavailable Procedures Procedure Date Office/outpatient Visit, Est Eye Exam & Treatment Refraction Cntct Lens Hydrophilic Toric Or Prism Ba llast Tax - Medical No Charge Contact Lens Check CL Replacement - Vist[employer] Disp W/BW Soft Sales Tax Eye Exam & Treatment Refraction No Charge Contact Lens Check CL Replacement - [employer] Disp W/BW Soft Tax - Medical Advance Directives Directive Yes / No Effective Date File Name No Information Encounters Encounter Description Practice Location Reason(s) For Visit Diagnoses Date Provider Providers Copied on Encounter Office/outpat ient Visit, Est [facility], [address] [place] [address] [address], [place], [place], [id number], [place] tel:[phone] [facility] No Information 0 Dunia Vieyra. [address] , [address], [place], [address], [place]. tel:[phone] [facility], [address], [place], [place], [id number], [place] tel:[phone] [facility] No Information Feb-0 4-201 0 Carvalho OD Emanuel. [address] , [address], [place], [address], [place]. tel:[phone] [facility], [address] [place] [address] [address], [place], [place], [id number], tel:[phone] [facility] No Information Sep-1 2-200 8 Carvalho OD Emanuel. [address] , [address], [place], [place], [facility], [place]. tel:[phone] [facility], [address] [place] [address] [address], [place], [place], [id number], tel:[phone] [facility] No Information Aug-2 8-200 8 Carvalho OD Emanuel. [address] , [address], [place], [place], [facility], . tel:[phone] [facility], [address] [place] [address] [address], [place], [place], [id number], tel:[phone] [facility] No Information Froilan-0 2-200 7 Carvalho OD Emanuel. [address] , [address], [place], [address], [place]. tel:[phone] Family History Family Member Type Diagnosis Age At Onset No Information Payers Payer name Insurance type Covered alliance party ID Authoriza tikelsi(s) [place] [id number] [facility] Custom Care CI [id number] Social History Type Description Quantity Date Captured Comments Sex Female Smoking Status No Information Chief Complaint And Reason For Visit No Information Reason For Referral Reason For Referral No Information History Of Present Illness Encounter Date Complaint History Of Prese nt Illness No Information Functional Status Date Functional Assessmen t No Information Instructions Date Instruction Additional Infor mation No Information Assessments Type Assessment Date No Information Patient Care Teams Name Effective Dates (start - stop) Status Members No Information
--- OUTSIDE RECORDS SUMMARY | 2025-02-05 08:30 | XMS_ITS | CONTINUITY OF CARE DOCUMENT ---
Author Name loy granado Address Unknown Organization [facility] Address [address] [place] [address] [address] [place] [address] Phone [phone] Care Team Providers Care Blending Supervisor Name Role Phone loy granado Unavailable Unavailable INSURANCE PROVIDERS Payer name Policy type / Coverage type Tabiona red green party ID [facility] [id number] Other [id number] [place] [employer] Medicare [id number]
--- OUTSIDE RECORDS SUMMARY | 2025-02-05 08:30 | XMS_ITS | Clinical Summary ---
Author Organization [facility] Address [facility]ly [facility] [place] [address] Care Team Providers Care Oracle Consultant Name Role Phone Unavailable Primary Care Provider Unavailabl e Social History Tobacco Use Types Packs/Day Years Used Date Smoking Tobacco: Never Assessed Comments Unknown Sex and Gender Information Value Date Recorded Sex Assigned at Not on file Legal Sex Female 5:02 PM CDT Gender Identity Not on file Sexual Orientation Not on file Plan of Treatment Health Maintenance Due Date Last Done Comments Zoster Vaccines (1 of 2) 01/28/1994 RSV Immunization or 60+ Years (1 - 1-dose 75+ series) 01/28/2019 COVID-19 Vaccine ( season) 2024 02/09/2022, 08/21/2021, 01/07/2021, Additional history exists DTaP, Tdap and Td Vaccines (2 - Td or Tdap) 12/12/2027 12/12/2017 Pneumococcal Vaccine: 50+ Years Completed 09/22/2018, 09/20/2017 Dexa Scan (General) Completed 01/15/2023, 3 Meningococcal B Vaccine Aged Out No l onger eligible based on patient's age to complete this topic Meningococcal Vaccine Aged Out No ankit hailey eligible based on patient's age to complete this topic RSV Immunizations Under 20 Months Aged Out No longer eligible based on patient's age to complete this topic
--- OUTSIDE RECORDS SUMMARY | 2025-02-05 08:30 | XMS_ITS | Encounter Summary ---
Author Organization [facility] Address [facility] [place] [address] Care Team Providers Care Diaphragm Builder Name Role Phone Unavailable Primary Care Provider Unavailabl e Encounter Details Date Type Department Care Team (Late st Contact Info) Description 11/14/2014 Abstract [facility] [address] [place], [place] [id number] , Generic Conversion, Social History Tobacco Use Types Packs/Day Years Used Date Smoking Tobacco: Never Assessed Comments Unknown Sex and Gender Information Value Date Recorded Sex Assigned at Not on file Legal Sex Female 5:02 PM CDT Gender Identity Not on file Sexual Orientation Not on file documented as of this encounter Plan of Treatment Not on file documented as of this encounter Visit Diagnoses Not on filedocumented in this encounter
--- OUTSIDE RECORDS SUMMARY | 2025-02-05 08:30 | XMS_ITS | Encounter Summary ---
Author Organization [facility] Address [facility] [place] [address] Care Team Providers Care Information Systems Project Manager Name Role Phone Unavailable Primary Care Provider Unavailabl e Encounter Details Date Type Department Care Team (Late st Contact Info) Description 07/11/2015 Abstract [facility] [address] [place], [place] [address] , Generic Conversion, Social History Tobacco Use [...]
--- OUTSIDE RECORDS SUMMARY | 2025-02-05 08:30 | XMS_ITS | Encounter Summary ---
Author Organization [facility] Address [facility] [place] [address] Care Team Providers Care Employment Evaluator/Case Manager Name Role Phone Unavailable Primary Care Provider Unavailabl e Encounter Details Date Type Department Care Team (Late st Contact Info) Description 03/07/2013 Abstract [facility] [address] [place], [place] [address] , Generic Conversion, Social History Tobacco Use [...]
--- OUTSIDE RECORDS SUMMARY | 2025-02-05 08:30 | XMS_ITS | Data Portability ---
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 Plan of Treatment Reminders Order Date Submit Date Provider Last Modified By Organization Details Last Modified Time Details Appointments None recorded. Lab vitamin D, 25-hydroxy, total, serum 2024 025 [email or web address] [facility], [address] [place] [address], [address], 5 10:32:58 HbA1c (hemoglobin A1c), blood 2024 025 [email or web address] [facility], [address] [place] [address], [address], 5 10:32:58 lipid panel, serum 2024 025 [email or web address] [facility], [address] [place] [address], [address], 5 10:32:58 CMP, serum or plasma 2024 025 [email or web address] [facility], [address] [place] [address], [address], 5 10:32:58 CBC w/ auto diff 2024 025 [email or web address] [facility], [address] [place] [address], [address], 5 10:32:58 TSH, serum or plasma [address] [facility], [address] [place] [address], [address], 5 10:32:58 iron + total iron-bindin g capacity (TIBC), serum [address] [facility], [address] [place] [address], [address], 5 10:32:57 BNP (B-type natriuretic peptide), blood [address], [address] [place] [address], [address], 5 10:32:57 HbA1c (hemoglobin A1c), blood 2022 023 [email or web address] [facility], [address] [place] [address], [address], 3 08:15:54 microalbumi n, urine 2022 023 [email or web address] [facility], [address] [place] [address], [address], 3 08:15:54 CMP, serum or plasma 2022 023 [facility], [address] [place] [address], [address], 3 08:15:54 urinalysis, complete 2022 023 [email or web address] [facility], [address] [place] [address], [address], 3 08:15:55 Referral None recorded. Procedures None recorded. Surgeries None recorded. Imaging None recorded. Medication Orders ibandronate 150 mg tablet 2024 025 NOR[id number], [address], [place], [place], [id number], 5 10:12:36 fluticasone propionate 50 mcg/actuati on nasal spray,suspe nsion 2023 024 NORRIS [facility] #[id number], [address], [place], [place], [id number], 4 09:08:21 Patient TargetsNo targets recorded. Patient Instructions Encounter Date Encounter Id Patient Instructions Last Modified By Organization Details Last Modified Time 11/20/2024 [id number] dementia rating scale-2* Not available 11/20/2024 10:12:30 multi-dimensiona l health assessment questionnaire* Not available 11/20/2024 10:12:30 care plan* Not available 11/20 10:12:30 advance directiv es: care instructions Not available 11/20/2024 10:12:31 advance care planning: care instructions Not available 11/20/2024 10:12:31 [place] Advance Directives Not available 11/20/2024 10:12:31 Follow up in 3 months Prescription sent to pharmacy Obtain labs Tests: Referral: Recommend: Personalized Health Plan and Screening Recommendations Advance Directives - Do you have one? Yes Advance Directives - Do we have your advance directive on file in your health record? No, please bring in a copy at your earliest convenience Primary Prevention/Interven tion (prevents or decreases the chance of common diseases from occurring) Smoking Risk: Non Smoker Alcohol Misuse Screening: Negative Weight: Appropriate Physical activity: Appropriate physical activity minimum of 10-20 minutes of activity that causes mild breathlessness/day Nutrition: Good Refer to attached handout Heart-Healthy Diet: After Your Visit Refer to attached handout DASH Diet: After Your Visit Fall Risk (screened today): Low Intermediate Refer to attached handout Preventing Falls: After your Visit Vaccines Pneumococcal: Ordered Recommended today Recommended today, but you have declined No further needed Influenza: Your next one in the fall of this year Chronic Disease Risks Stroke: Low Risk Intermediate Risk I have no recommendations Heart Attack: Low risk I have no recommendations Clogging of the Arteries: Low risk I have no recommendations Diabetes: High Risk Active diagnosis, Continue current treatment plan Secondary Prevention/Interven tion (detects treatable diseases before they may cause symptoms, disability, or ) Breast Cancer Screening with mammogram: No screening necessary Cervical/Uterine/Ov ofelia Cancer Screening: No screening necessary Osteoporosis Screening: No screening necessary Date Screening Last Performed: _2023___ Colon Cancer Screening: No screening necessary No screening necessary Date Screening Last Performed: _2018 Eye Disease Screening: No Eye exam necessary Dementia Risk: Low I have no recommendations Depression Screening: Negative Not available 11/20/2024 10:10:57 Reason for Referral None Reported. Results Created Date Observation Date Name Description Value Unit Range Abnormal Flag Note LastModifiedBy Organization Detail LastModifiedTime 11/09/19 24 11/05/2023 US, doppl er, nelson s No observ ation record ed. [email or web address] [place] [address], [place], [address], 11/11/2023 16:11:07 Result Notes None recorded. Problems Name Problem SNOMED Code Status Onset Date Resolution Date Notes Provider Name and Address Organization Details Recorded Time Alcohol abuse 78232236 Active 2022 Leny Rodriguez APRN [address], [address], [place], [address] , [employer] 5 09:39:55 Anxiety state 932383811 Active Leny Rodriguez APRN [address], [address], [place], [address] , [employer] 5 09:39:57 Abdominal pain 30010099 Active Not Available [employer] 3 12:53:42 Gastroesop hageal reflux disease 528181434 Active Leny Rodriguez APRN [address], [address], [place], [address] , [employer] 5 09:40:23 Median nerve entrapment 414316704 Active Not Available [facility] 3 12:53:42 Anemia 583049041 Active Leny Rodriguez APRN [address], [address], [place], [address] , [employer] [facility] 5 09:39:51 Blood in urine 05957772 Active Not Available [employer] 3 12:53:42 Vitamin D deficiency 44776641 Active Leny Rodriguez APRN [address], [address], [place], [address] , [employer] [facility] 5 09:40:43 Malignant neoplasm of female breast 429051158 Active 2022 Not Available [facility] 3 12:53:42 Osteoarthr itis 383842073 Active Leny Rodriguez APRN [address], [address], [place], [address] , [employer] [facility] 5 09:40:37 Hyperlipid emia 62849674 Active Leny Rodriguez APRN [address], [address], [place], [address] , [employer] [facility] [employer] 5 09:40:35 Carpal tunnel syndrome 09449986 Active Leny Rodriguez APRN [address], [place], [address] , [employer] [facility] 5 09:40:04 Joint pain 26313702 Active Not Available [facility] 3 12:53:43 Increased liver function 99721981 Active Not Available [employer] 3 12:53:43 Urinary tract infectious disease 94740534 Active Not Available [facility] 3 12:53:43 Diabetes mellitus 39452681 Active Leny Rodriguez APRN [address], [address], [place], [address] , [place] [employer] [facility] 5 09:40:15 Sleep apnea 56198360 Active on cpap Leny Rodriguez APRN [address], [address], [place], [address] , [facility] 5 09:40:45 Cyst of ovary 82207221 Active Not Available [employer] 3 12:53:43 Osteoporos is 51167363 Active 2022 Leny Rodriguez APRN [address], [address], [place], [address] , [facility] 5 09:40:41 Hyperglyce alfredo due to type 2 diabetes mellitus 4531878460061 09 Active 2022 LISETTE Ricci [address], [address], [place], [address] , [employer] 3 09:10:09 Malignant tumor of breast 781578092 Active 2022 LISETTE Ricci [address], [address], [place], [address] , [employer] 3 12:22:16 Essential hypertensi on 61163704 Active 2022 Leny Rodriguez APRN [address], [address], [place], [address] , [employer] 5 09:40:21 Congestive heart failure 99322511 Active 2022 Leny Rodriguez APRN [address], [address], [place], [address] , [employer] 5 09:40:09 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 3 16:14:26 Disorder of musculoske letal system 832456 Active 2022 Leny Rodriguez APRN [address], [address], [place], [address] , [facility] [employer] [facility] 5 09:40:18 Low blood pressure 34469942 Active 2022 LISETTE Ricci [address], [address], [place], [address] , [facility] [employer] [facility] [employer] [facility] 3 16:22:31 Acute sinusitis 19222842 Active 2022 CARRINGTON Lubin [address], [address], [place], [address] , [facility] [employer] 3 17:23:52 Bronchitis 10651458 Active 2022 Iliana Lee MD [address], [place] [address], [place], [address] , [facility] [employer] [facility] [employer] 3 17:50:29 Lymphedema of upper arm 733900529 Active 2023 Iliana Lee MD [address], [address], [place], [address] , [facility] [employer] [facility] [employer] [facility] 4 11:19:06 Notes:Some problems listed i n Document: #[id number] could not be added to this patient's chart. Please review this document and add these problems to the patient's chart manually as needed. Problem Notes None recorded. Procedures Surgical History Date Name Laterality Status Provider Name and Address Organization Details Recorded Time 5 Medicare Wellness CPT Code, subsequent completed Leny Rodriguez APRN [address], [address], [place], [address], [facility] [employer] 11/13/2024 09:38:49 delivery completed Maria Del Carmen Brandon [facility] [employer] [facility] 11/20/2024 09:49:54 cardiac ablation using fluoroscopy guidance completed Maria Del Carmen Brandon [facility] [employer] 11/20/2024 09:50:08 Tubal Ligation completed LALO Lama [place] [facility] 11/20/2024 09:50:20 Carpal tunnel completed LALO Lama [facility] 11/20/2024 09:50:32 Imaging Results Imaging Date Name Status LastModified by Organiz ation Details LastModified Time 11/05/2023 US, doppler, venous completed [email or web address] [facility] [address], [place], [address], 11/11/2023 16:11:07 Procedure Notes None recorded. Medical Equipment None Reported. Allergies Allergen ID Allergen Name Allergen Category Reaction Reaction Severity Criticality Documentation Date Start Date Code Code System Note Provider Name and Address Organization Details Recorded Time 32066 Cipro medicatio n rash Not available Not available 12/23/2022 89648 3 RxNorm Not Available [facility] 3 12:57:44 05293 amoxicill in medicatio n angioedem a Not available Not available 12/23/2022 723 RxNorm Not Available [facility] 3 12:57:44 Medications Name Sig Start Date Stop Date Status Note LastModified by Organization Details LastModified Time furosemid e 40 mg tablet 06/16 completed Not Available Not Available Not Available methocarb osmani 500 mg tablet active Not Available Not Available No t Available metformin 500 mg tablet TAKE 1 TABLET BY MOUTH EVERY DAY 11/24 completed Not Available Not Available Not Available azelastin e 0.05 % eye drops INSTILL 1 DROP IN BOTH EYES EVERY MORNING 06/16 completed Not Available Not Available Not Available prednison e 10 mg tablet 01/21 completed Not Available Not Available Not Available doxycycli ne hyclate 100 mg capsule TAKE 1 CAPSULE BY MOUTH TWICE DAILY FOR 7 DAYS 11/24 completed Not Available Not Available Not Available erythromy julian 500 mg tablet TAKE 1 TABLET BY MOUTH A SINGLE DOSE 30 TO 60 MINUTES BEFORE DENTAL PROCEDUR E 11/24 completed Not Available Not Available Not Available fexofenad ine 60 mg tablet Take 1 tablet every day by oral route as needed. active Not Available Not Available No t Available azithromy julian 250 mg tablet TAKE 2 TABLETS BY MOUTH FOR 1 DAY THEN TAKE 1 TABLET BY MOUTH DAILY FOR 4 DAYS 11/20 completed Not Available Not Available Not Available benzonata te 200 mg capsule TAKE 1 CAPSULE BY MOUTH THREE TIMES DAILY NEEDED 11/24 completed Not Available Not Available Not Available valacyclo vir 1 gram tablet Take 1 tablet twice a day by oral route for 7 days. active Not Available Not Available No t Available hydrocodo ne 5 mg-acetam inophen 325 mg tablet TK 1 T PO Q 6 H PRN 07/04 completed Not Available Not Available Not Available ondansetr on HCl 4 mg tablet TK 1 T PO Q 8 H PRN NV. U IF PROCHLOR PERAZINE DOES NOT STOP NAUSEA. 06/16 completed Not Available Not Available Not Available prednison e 20 mg tablet TAKE 1 TABLET BY MOUTH EVERY DAY FOR 5 DAYS 11/24 completed Not Available Not Available Not Available alendrona te 70 mg tablet Take 1 tablet every week by oral route. active Not Available Not Available No t Available Prilosec 20 mg capsule,d elayed release Take 1 capsule every day by oral route. 10/30 completed Not Available Not Available Not Available Accu-Chek Softclix Lancets USE TO TEST TWICE DAILY 06/16 completed Not Available Not Available Not Available ciproflox acin 250 mg tablet TAKE 1 TABLET BY MOUTH EVERY 12 HOURS FOR 5 DAYS 01/21 completed Not Available Not Available Not Available prochlorp erazine maleate 10 mg tablet TK 1 T PO Q 6 H PRN NV. USE MARS FOR NAUSEA 06/16 completed Not Available Not Available Not Available allopurin ol 100 mg tablet Take 1 tablet every day by oral route for 30 days. 01/21 completed Not Available Not Available Not Available valacyclo vir 500 mg tablet 06/16 completed Not Available Not Available Not Available ciproflox acin 500 mg tablet TK 1 T PO Q 12 H FOR 7 DAYS 03/11 completed Not Available Not Available Not Available sulfameth oxazole 800 mg-trimet hoprim 160 mg tablet 01/21 completed Not Available Not Available Not Available tramadol 50 mg tablet Take 1 tablet every 8 hours by oral route as needed. active Not Available Not Available No t Available triamtere ne 37.5 mg-hydroc hlorothia zide 25 mg capsule TAKE 1 CAPSULE BY MOUTH DAILY 06/16 completed Not Available Not Available Not Available triamcino lone acetonide 0.1 % topical cream APPLY TOPICALL Y TO THE AFFECTED AREA TWICE DAILY active Not Available Not Available No t Available acyclovir 800 mg tablet TK 1 T PO Q 4 H WHILE AWAKE 11/07 completed Not Available Not Available Not Available dexametha sone 0.5 mg/5 mL oral elixir USE 10 ML BY MOUTH FOUR TIMES DAILY. SWISH FOR 2 MINUNTES THEN SPIT OUT. 11/20 completed Not Available Not Available Not Available oxycodone -acetamin ophen 5 mg-325 mg tablet 07/04 completed Not Available Not Available Not Available alprazola m 0.25 mg tablet Take 1 tablet 3 times a day by oral route as needed. active Not Available Not Available No t Available potassium chloride ER 20 mEq tablet,ex tended release(p art/cryst ) TAKE 1 TABLET BY MOUTH EVERY DAY 06/16 completed Not Available Not Available Not Available prednisol one acetate 1 % eye drops,gregory pension INSTILL ONE DROP IN RIGHT EYE TWICE DAILY FOR 2 WEEKS THEN DAILY 06/16 completed Not Available Not Available Not Available magnesium oxide 400 mg (241.3 mg magnesium ) tablet active Not Available Not Available Not Available exemestan e 25 mg tablet 11/20 completed Not Available Not Available Not Available oxycodone -acetamin ophen 10 mg-325 mg tablet 07/04 completed Not Available Not Available Not Available meclizine 25 mg tablet 11/20 completed Not Available Not Available Not Available hydrocort isone 1 % topical cream SHARATH THIN LAYER EXT AA BID 06/16 completed Not Available Not Available Not Available hydrocodo ne 7.5 mg-acetam inophen 325 mg tablet 03/11 completed Not Available Not Available Not Available simvastat in 20 mg tablet TAKE 1 TABLET BY MOUTH EVERY DAY 06/19 completed muscle weakness Not Available Not Available Not Available neomycin- polymyxin -dexameth 3.5 mg/mL-10, 000 unit/mL-0 .1% eye drops SHAKE LIQUID AND INSTILL 1 DROP IN RIGHT EYE EVERY DAY 01/27 /2025 completed Not Available Not Available Not Available nitrofura ntoin macrocrys sobia 100 mg capsule Take 1 capsule twice a day by oral route for 7 days. active Not Available Not Available No t Available prednison e 50 mg tablet 01/21 completed Not Available Not Available Not Available lidocaine 5 % topical patch UNW AND SHARATH 1 PA ON THE SKIN QD. REMOVE AND DISCARD PA WITHIN 12 H OR UTD BY MD active Not Available Not Available No t Available fluvastat in 20 mg capsule TAKE ONE TABLET BY MOUTH 2 TIMES PER WEEK active Not Available Not Available No t Available gabapenti n 300 mg capsule TAKE 1 CAPSULE BY MOUTH THREE TIMES DAILY 01/21 completed Not Available Not Available Not Available magnesium 250 mg tablet Take by oral route. 01/21 completed Not Available Not Available Not Available furosemid e 20 mg tablet active Not Available Not Available Not Available gabapenti n 100 mg capsule 11/20 completed Not Available Not Available Not Available metoprolo l succinate ER 25 mg tablet,ex tended release 24 hr active Not Available Not Available Not Available ibuprofen 600 mg tablet Take 1 tablet every 6-8 hours by oral route. active Not Available Not Available No t Available levofloxa julian 500 mg tablet 07/04 completed Not Available Not Available Not Available scopolami ne 1 mg over 3 days transderm al patch APPLY 1 PATCH TOPICALL Y TO THE SKIN EVERY 72 HOURS 11/20 completed Not Available Not Available Not Available methylpre dnisolone 4 mg tablets in a dose pack FOLLOW PACKAGE DIRECTIO NS 11/20 completed Not Available Not Available Not Available ondansetr on 4 mg disintegr ating tablet active Not Available Not Available Not Available fluticaso ne propionat e 50 mcg/actua tion nasal spray,greg[employer] pension SHAKE LIQUID AND USE 1 SPRAY IN EACH NOSTRIL DAILY active Not Available Not Available No t Available doxycycli ne hyclate 100 mg tablet Take 1 tablet twice a day by oral route for 7 days. active Not Available Not Available No t Available calcitrio l 0.25 mcg capsule active Not Available Not Available Not Available loratadin e 10 mg tablet Take 1 tablet every day by oral route. 06/16 completed Not Available Not Available Not Available Adult Low Dose Aspirin 81 mg tablet,de layed release Take 1 tablet every day by oral route. 07/04 completed Not Available Not Available Not Available fulvestra nt 250 mg/5 mL intramusc ular syringe Inject 10 mL every month by intramus cular route. 11/20 completed Not Available Not Available Not Available Crestor 5 mg tablet active Not Available Not Available No t Available duloxetin e 20 mg capsule,d elayed release 06/16 completed Not Available Not Available Not Available duloxetin e 30 mg capsule,d elayed release 06/16 completed Not Available Not Available Not Available ibandrona te 150 mg tablet Take 1 tablet every month by oral route as directed , for Osteopor elizabeth. 2024 active Not Available Not Available Not Avai lable Boostrix Tdap 2.5 Lf unit-8 mcg-5 Lf/0.5 mL intramusc ular syringe ADM 0.5ML IM UTD 01/21 completed Not Available Not Available Not Available chlorhexi dine gluconate 0.12 % mouthwash SWISH AND SPIT 15 ML BY MOUTH FOR 30 SECONDS TWICE DAILY active Not Available Not Available No t Available Mucinex D 60 mg-600 mg tablet,ex tended release Take per package instruct ions. 09/22 completed Not Available Not Available Not Available Decadron 0.1mg/ml take 10 ml qid swish and spit active Not Available Not Available No t Available omeprazol e 1mg capsule daily active Not Available Not Available No t Available Ocuvite 06/16 completed Not Available Not Available Not Available Zometa 11/24 completed Not Available Not Available Not Available ProAir HFA 90 mcg/actua tion aerosol inhaler Inhale 2 puffs every 4 hours by inhalati on route as needed. active Not Available Not Available No t Available cholecalc iferol (vitamin D3) 1,250 mcg (50,000 unit) capsule TAKE 1 CAPSULE BY MOUTH EVERY WEEK 06/16 completed Not Available Not Available Not Available FeroSul 325 mg (65 mg iron) tablet TAKE 1 TABLET BY MOUTH TWICE DAILY active Not Available Not Available No t Available everolimu s (antineop lastic) 10 mg tablet Take 1 tablet every day by oral route. active Not Available Not Available No t Available Xarelto 20 mg tablet 1 po qday 01/21 completed Not Available Not Available Not Available PreviDent 5000 Booster Plus 1.1 % dental paste 06/16 completed Not Available Not Available Not Available Eliquis 2.5 mg tablet active Not Available Not Available Not Available Accu-Chek Compact Plus Test Strips USE TO TEST TWICE DAILY DIRECTED 06/16 completed Not Available Not Available Not Available Xarelto DVT-PE Treatment 30-Day Starter 15 mg(42)-20 mg(9) tablet pack 07/04 completed Not Available Not Available Not Available Entresto 24 mg-26 mg tablet TAKE 1 TABLET BY MOUTH TWICE DAILY 06/16 completed Not Available Not Available Not Available Xiidra 5 % eye drops in a dropperet te INSTILL 1 DROP IN BOTH EYES TWICE DAILY 06/16 completed Not Available Not Available Not Available Fluad 65yr up(PF)45 mcg(15 mcgx3)/0. 5 mL intramusc ular syringe ADM 0.5ML IM UTD 06/16 completed Not Available Not Available Not Available Paxlovid 300 mg (150 mg x 2)-100 mg tablets in a dose pack TK 2 NIRMATRE LVIR TS AND 1 RITONAVI R T TOGETHER PO BID FOR 5 DAYS 11/20 completed Not Available Not Available Not Available Vitals Date Recorded Body weight Body temperature Heart rate Oxygen saturation Oxygen saturation in Arterial blood by Pulse oximetry Systolic blood pressure Diastolic blood pressure Provider Name and Address Organization Details Last Updated DateTime 3 71206.8 3 g 98.6 [degF] 72 /min 98 % 98 % 114 mm[Hg] 58 mm[Hg] Dorina Pierce RN [facility] [employer] 3 15:56:37 Date Recorded Body weight Body temperature Heart rate Oxygen saturation Oxygen saturation in Arterial blood by Pulse oximetry Systolic blood pressure Diastolic blood pressure Provider Name and Address Organization Details Last Updated DateTime 3 77506.9 g 98.1 [degF] 68 /min 99 % 99 % 122 mm[Hg] 68 mm[Hg] Hilda Torres LPN [employer] [facility] [employer] 3 11:33:40 Date Recorded Body weight Oxygen saturation Oxygen saturation in Arterial blood by Pulse oximetry Heart rate Systolic blood pressure Diastolic blood pressure Provider Name and Address Organization Details Last Updated DateTime 4 21859.0 1 g 92 % 92 % 71 /min 148 mm[Hg] 70 mm[Hg] Toro Goddard RN [facility] [employer] [facility] 4 11:01:21 Date Recorded Body temperature Provider Name a nd Address Organization Details Last Updated DateTime 11/24/2023 97.4 [degF] Iliana Lee MD [address] [place] [address], [address], [facility] [employer] [facility] 11/24/2023 11:02:56 Date Recorded Body weight Body mass index (BMI) Body height Body temperature Heart rate Oxygen saturation Oxygen saturation in Arterial blood by Pulse oximetry Systolic blood pressure Diastolic blood pressure Provider Name and Address Organization Details Last Updated DateTime 4 97335.3 5 g 22.6 kg/m2 149.86 cm 97.8 [degF] 68 /min 97 % 97 % 160 mm[Hg] 78 mm[Hg] Ruth Ordaz RN [facility] [employer] [facility] 4 08:58:16 Date Recorded Body height Body mass index (BMI) Body weight Body temperature Heart rate Oxygen saturation Oxygen saturation in Arterial blood by Pulse oximetry Pain severity - 0-10 verbal numeric rating [Score] - Reported Systolic blood pressure Diastolic blood pressure Provider Name and Address Organization Details Last Updated DateTime 5 149.86 cm 22.2 kg/m2 24375.1 6 g 97.8 [degF] 79 /min 97 % 97 % 0 130 mm[Hg] 60 mm[Hg] Maria Del Carmen Brandon MA [facility] [employer] [facility] 5 09:41:49 Social History Question Answer Notes LastModified by Organization Details LastModified Time Tobacco Smoking Status Never Smoker Not Available [employer] 12/23/2022 12:51:18 Do You Have An Advance Directive? Yes [id number].030 [id number] Information not available 12/23/2022 What Is Your Level Of Alcohol Consumption? Moderate Patient Reported One Glass Of Wine Each Evening. [id number] Information not available 12/23/2022 Are You Blind Or Do You Have Difficulty Seeing? Yes Patient Currently Cannot Drive Due To Vision. MIGRATION.0301 [id number] Information not available 12/23/2022 What Is Your Level Of Caffeine Consumption? Moderate Information not available 11/20/2024 In The 14 Days Before Symptom Onset, Have You Had Close Contact With A Laboratory-conf irmed COVID-19 While That Case Was Ill? No Information not available 11/20/2024 In The 14 Days Before Symptom Onset, Have You Had Close Contact With A Person Who Is Under Investigation For COVID-19 While That Person Was Ill? No Information not available 11/20/2024 Are You Currently Employed? No Retired Information not available 11/20/2024 Are You Deaf Or Do You Have Serious Difficulty Hearing? No MIGRATION.0301 [id number] Information not available 12/23/2022 What Type Of Diet Are You Following? REGULAR MIGRATION.0301 [id number] Information not available 12/23/2022 Have There Been Any Changes To Your Family Or Social Situation? No MIGRATION.0301 [id number] Information not available 12/23/2022 Do You Use Insect Repellent Routinely? No MIGRATION.0301 [id number] Information not available 12/23/2022 Where Do You Live? [place]House MIGRATION.0301 [id number] Information not available 12/23/2022 What Was The Date Of Your Most Recent Tobacco Screening? 11/20/2024 Information not available 11/20/2024 How Many Children Do You Have? 4 Information not available 11/20/2024 What Is Your Relationship Status? Information not available 11/20/2024 Do You Have Smoke And Carbon Monoxide Detectors In Your Home? Yes Information not available 11/20/2024 Are You Passively Exposed To Smoke? No Information not available 11/20/2024 Are There Any Smokers In Your House? No Information not available 11/20/2024 Do You Feel Stressed (tense, Restless, Nervous, Or Anxious, Or Unable To Sleep At Night)? [id number] MIGRATION.0301 [id number] Information not available 12/23/2022 Do You Use Any Illicit Or Recreational Drugs? No Information not available 11/20/2024 Do You Use Sunscreen Routinely? Yes MIGRATION.0301 [id number] Information not available 12/23/2022 Has Tobacco Cessation Counseling Been Provided? No MIGRATION.0301 [id number] Information not available 12/23/2022 Have You Recently Traveled Abroad? No Information not available 11/20/2024 Do You Have Any Dietary Restrictions? No MIGRATION.0301 396381 Information not available 12/23/2022 Sex: Unknown Functional Status Question Answer Note LastModified by Organizat ion Details LastModified Time Do you have difficulty walking or climbing stairs? No MIGRATION.03751 06938 Information not available 12/23/2022 Do you have transportation difficulties? Yes Patient is currently not driving. MIGRATION.78183 33137 Information not available 12/23/2022 Are you able to walk? YESASSIST Patient stated she uses a cane or a walker when she leaves her home. MIGRATION.53935 10068 Information not available 12/23/2022 Do you have difficulty doing errands alone? Yes Patient currently is not driving. MIGRATION.50431 73401 Information not available 12/23/2022 Are you able to care for yourself? Yes MIGRATION.58931 43472 Information not available 12/23/2022 Do you have difficulty dressing or bathing? No MIGRATION.08931 17409 Information not available 12/23/2022 What is your exercise level? Occasional PT exercises MIGRATION.66046 21017 Information not available 12/23/2022 Mental Status Question Answer Note LastModified by Organizat ion Details LastModified Time Do you have difficulty concentrating, remembering or making decisions? No [id number] Information not available 12/23/2022 Family History Nothing Reported. Medical History No medical history recorded. Gynecological History Statement/Question Response Date of Last Mammogram Date of LMP Date of Last Pap Current Control Method Menopause Breast Problems no How many live births 3 Date of Last Colonoscopy Most Recent Bone Density Weight gain N Menses Monthly N Discharge no Obstetrics History GPAL:G 6 P 4 0 2 3 Type Value Multiple Births 0 Full Term 4 Induced 0 Spontaneous 2 Premature 0 Living 3 Ectopics 0 Total 6 Immunizations Vaccine Type Date Status Note Provider Sandro aiken and Address Organization Details Recorded Time Influenza, adjuvanted, trivalent, PF 8 completed Leny Rodriguez, [employer] [address] [facility] [address], [place], [address], [facility] [employer] [facility] 11/13/2024 09:37:14 zoster recombinant 3 completed Leny Rodriguez APRN [address], [address], [place], [address], [facility] [employer] [facility] 11/13/2024 09:37:15 zoster recombinant 3 completed Leny Rodriguez APRN [address], [address], [place], [address], [facility] [employer] [facility] 11/13/2024 09:37:15 Influenza, high-dose, quadrivalent, PF 2 completed Leny Rodriguez APRN [address], [address], [place], [address], [facility] [employer] [facility] 11/13/2024 09:37:15 Influenza, adjuvanted, quadrivalent, PF [address], [place], [address], [facility] [employer] [facility] 11/13/2024 09:37:15 COVID-19, mRNA, LNP-S, PF, 100 mcg/0.5mL dose or 50 mcg/0.25mL dose 1 completed MINDI [address], [place], [address], [facility] [employer] [facility] 11/13/2024 09:37:15 COVID-19, mRNA, LNP-S, PF, 100 mcg/0.5mL dose or 50 mcg/0.25mL dose 1 completed MINDI [address], [place], [address], [facility] [employer] [facility] 11/13/2024 09:37:15 COVID-19, mRNA, LNP-S, PF, 100 mcg/0.5mL dose or 50 mcg/0.25mL dose 2 completed Leny Rodriguez APRN [address], [address], [place], [address], [facility] Yun Yun [facility] 11/13/2024 09:37:15 COVID-19, mRNA, LNP-S, PF, 100 mcg/0.5mL dose or 50 mcg/0.25mL dose 1 completed Leny Rodriguez APRN [address], [address], [place], [address], [facility] Y[employer] Yun [facility] 11/13/2024 09:37:15 COVID-19, mRNA, LNP-S, PF, 100 mcg/0.5mL dose or 50 mcg/0.25mL dose 1 completed Leny Rodriguez APRN [address], [place], [address], [facility] Yun Yun [facility] 11/13/2024 09:37:15 COVID-19, mRNA, LNP-S, bivalent, PF, 50 mcg/0.5 mL or 25mcg/0.25 mL dose 2 completed Leny Rodriguez APRN [address], [address], [place], [address], [facility] Yun Yun [facility] 11/13/2024 09:37:15 influenza, unspecified formulation 1 completed Leny Rodriguez APRN [address], [address], [place], [address], [facility] Y[employer] Y[facility] 11/13/2024 09:37:15 Tdap 8 completed [address], [place], [address], [facility] [employer] [facility] 11/13/2024 09:37:15 Influenza, adjuvanted, quadrivalent, PF 3 completed Leny Rodriguez APRN [address], [place], [address], [facility] Yun Yun [facility] 11/13/2024 09:37:28 RSV, recombinant, protein subunit RSVpreF, adjuvant reconstituted, 0.5 mL, PF 4 completed Leny Rodriguez APRN [address], [place], [address], [facility] [employer] [facility] 11/13/2024 09:37:28 COVID-19, mRNA, LNP-S, PF, 50 mcg/0.5 mL 3 completed Leny Rodriguez APRN [address], [place], [address], [facility] [employer] [facility] 11/13/2024 09:37:28 COVID-19, mRNA, LNP-S, PF, 50 mcg/0.5 mL 4 completed Leny Rodriguez APRN [address], [place], [address], [facility] [employer] [facility] [employer] [facility] 11/20/2024 09:55:34 Influenza, high-dose, trivalent, PF 4 completed Leny Rodriguez APRN [address], [place], [address], [employer] [facility] [employer] [facility] 11/20/2024 09:55:34 Influenza, high-dose, quadrivalent, PF 2 completed Leny Rodriguez APRN [address], [place], [address], [employer] [facility] [employer] [facility] 11/13/2024 09:37:15 Influenza, high-dose, trivalent, PF 0 completed Not Available [facility] 12/23/2022 12:57:36 Pneumococcal conjugate PCV 13 8 completed Not Available [facility] 12/23/2022 12:57:36 Influenza, high-dose, trivalent, PF 7 completed Not Available [facility] 12/23/2022 12:57:36 pneumococcal polysaccharide PPV23 7 completed Not Available [facility] 12/23/2022 12:57:36 Influenza, split virus, trivalent, preservative 5 completed Lney Rodriguez APRN [address], [place], [address], [facility] [employer] [facility] [employer] [facility] 11/13/2024 09:37:15 Past Encounters Encounter ID Performer Location Encounter Start Date Encounter Closed Date Diagnosis/Indication Diagnosis SNOMED-CT Code Diagnosis ICD10 Code Diagnosis Note [id number] [facility] Primary Care Topshamrandal mayberry [address] [place] [address] 10/30/2022 00:00:00 10/30/2022 13:55:19 [id number] LISETTE Ricci [facility] Primary Care Stella nelli [address] [place] [address] 01/21/2023 08:17:13 01/21/2023 09:12:15 Osteoporosis 03405532 M81.0 ChronicPre vious bone density scans showed osteoporos is (09/2017) and indicated high fx risk (07/18/20); current scan (viewed on [facility] patient portal) reconfirms dx and indicates no improvemen t.Discusse d with pt that this may be partially d/t cancer tx.Encoura ged pt to continue fosamax, vitamin d, calcium supplement , TUMS and add in weight bearing exercise. Hyperglyce alfredo due to type 2 diabetes mellitus 5294738502 83109 E11.65 SngkuvsQ1Q 6.8 (01/06/23)- viewed on [facility] pt portalDisc ussed need for regular exercise, increase intake of water/vege tables/fib er. Decrease intake of carbs, especially white rice/pasta /flour/sharif ad/sugar.M etformin currently on hold. Discussed higher BS may also be d/t cancer tx. Will continue to monitor and repeat in 3 months. If A1C at or above 7.0, will resume metformin. Vitamin D deficiency 347 54441 E55.9 ChronicVit D 28.0 (01/06/23)- viewed on [facility] pt portalCont inue otc D3 5000 IU BIDMay need to consider addition of weekly D2 supplement as well. Malignant tumor of breast 007719257 C50.912 Left breast. HER2 neg, estrogen receptor posPt under care of oncologist at [facility] (Hossein aiken).Continu e with chemo tx as scheduled. Keep upcoming appt for CT scan.Exeme stane (aromatase inhibitor) dailyVerze nio BID Essential hypertension 33645938 I10 Well controlled Asymptomat ic at this timeEncour aged pt to increase water intake, reduce caffeine intake, exercise regularly, decrease/e liminate sodium intake, work on stress reduction. Will continue to monitor closely as most recent labs indicate possible need for renal f/u. Pt to repeat bmp/cmp with oncologyCo ntinue metoprolol as directed by Dr. Bucio.Tri amterene 37.5mg & hctz 25mg on hold per cardiology . Congestive heart failure 47561657 I50.9 Recent Dx per cardiology (Dr. Bucio)Dis cussed with the patient diet, physical activity, medication compliance and the importance of weighing daily. 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 Discussed that it is usually brought on by stress/ill ness. Advised sx may improve once she completes chemothera py. [id number] LISETTE Ricci [facility] [address] [place] [address] 05/27/2023 15:38:27 05/27/2023 16:27:57 Cyst of uterine adnexa 6748212964 [address] abd/pel (03/2023)-3 8mm low attenuatin g area in area of right adnexa. Unable to determine if this is cystic lesion or adjacent bowel tissue.Rec ommend pt wait for re-imaging on upcoming PET scan. If still present Disorder o f musculoskeletal system 012778 M99.[address] abd/pel (03/2023) indicating sclerotic and expansile appearance of the left lateral 9th rib, similar to finding in 2021, but increased from 2019. F/u imaging recommende d. Recommend pt wait for re-imaging on upcoming PET scan. 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 Discussed that it is usually brought on by stress/ill ness. Advised sx may improve once she completes chemothera py. Low blood pressure 28045 003 I95.9 Stable todayPt advised to continue to hold metoprolol and track bps at home. Hyperglyce alfredo due to type 2 diabetes mellitus 3436965412 30774 E11.65 Chronic, saqlgiQ2R 6.8 (01/06/23)- viewed on [employer] pt portalDisc ussed need for regular exercise, increase intake of water/vege tables/fib er. Decrease intake of carbs, especially white rice/pasta /flour/sharif ad/sugar.M etformin currently on hold. Discussed higher BS may also be d/t cancer tx. Will continue to monitor and repeat in 3 months. If A1C at or above 7.0, will resume metformin. Malignant tumor of breast 010124359 C50.912 StableLeft breast. HER2 neg, estrogen receptor posPt under care of oncologist at [facility] (Hossein aiken).Continu e with chemo tx as scheduled. Keep upcoming appt for CT scan.Exeme stane (aromatase inhibitor) dailyVerze nio BID [id number] LISETTE Ricci [facility] Primary Care [address] [place] [address] 08/25/2023 10:59:09 08/25/2023 11:50:23 Cyst of uterine adnexa 8191012475 [address] abd/pel (03/2023)-3 8mm low attenuatin g area in area of right adnexa. Unable to determine if this is cystic lesion or adjacent bowel tissue.Pt reports PET scan indicated no concern in area found on the above CT scan. PET scan results not available for review. 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 Pt has noticeably less drooping to right side of face.Reass ured pt that Huerta's Palsy normally resolves on it's own within a matter of months; however, some cases may become permanent. Discussed that it is usually brought on by stress/ill ness. Advised sx may improve once she completes chemothera py. Low blood pressure 66336 003 I95.9 Stable todayPt advised to continue to hold metoprolol and track bps at home. Hyperglyce alfredo due to type 2 diabetes mellitus 8347056237 08403 E11.65 Chronic, mbgnstG6T 6.8 (01/06/23)- viewed on [employer] pt portal last visit.Disc ussed need for regular exercise, increase intake of water/vege tables/fib er. Decrease intake of carbs, especially white rice/pasta /flour/sharif ad/sugar.M etformin currently on hold. Discussed higher BS may also be d/t cancer tx. Will continue to monitor and repeat. If A1C at or above 7.0, will resume metformin. Malignant tumor of breast 289701962 C50.912 StableLeft breast. HER2 neg, estrogen receptor posPt under care of oncologist at [facility] (Hossein aiken).Continu e with chemo tx as scheduled. Exemestane (aromatase inhibitor) dailyVerze nio BID Suspected COVID-19 27889 4004 Z20.822 ResolvedAl though pt reports home covid tests were negative, the loss of taste/smel l is very specific to covid so she likely had false negative results.Re assured pt that he/she is outside the window of contagion at this time. Discussed at length that many covid sx (fatigue, cough, sob, bodyaches, loss sense of taste/smel l) may linger for an extended period of time. Discussed s/s that warrant emergent evaluation (high fever, worsening sob, new onset sx). [id number] Iliana Lee MD [facility] [address] [place] [address] 11/24/2023 10:56:23 11/24/2023 11:23:52 Diabetes mellitus 76626392 E11.9 diet controlled a1c 08/2023 5.8continu e small, frequent meals through the daysees nephrology for chronic renal insufficie ncyf/u in 6 months or sooner if needed Lymphedema of upper arm 477703785 I89.0 has left breast cancer with left axillary lymphadeno pathywears compressio n sleeve, being monitored by oncology [id number] CARRINGTON Lubin [facility] Stella mayberry [address] [place] [address] 06/16/2024 08:48:52 06/16/2024 09:10:29 Diabetes mellitus 85174226 E11.9 diet controlled a1c 08/2023 5.8, declines checking todaynotes blood sugars being low, sometimes in the 50scontinu e small, frequent meals through the daysees nephrology for chronic renal insufficie ncyf/u in 6 months or sooner if needed Lymphedema of upper arm 554751710 I89.0 -already f/u with oncology has left breast cancer with left axillary lymphadeno pathywears compressio n sleeve, being monitored by oncology Acute sinusitis 90138413 J01.90 [id number] Leny Rodriguez APRN [facility] [address] [facility] [place] [address] 11/20/2024 09:22:42 11/20/2024 10:21:41 Adult health examination 839664570 Z00.00 Screening for disorder 887735777 Z13.9 Anemia 779499312 D64.9 Congestive heart failure 48027847 I50.9 Hyperlipidemia 03387273 E78.5 Osteoporosis 95652680 M8 1.0 Diabetes mellitus 307836 09 E11.9 Health Concerns Section Related Observation LastModified by Organization Detai ls LastModified Time None Recorded Concern Status LastModified by Organization Details LastModified Time None Recorded Advance Directives Directive Y: Payers Encounter Date Sequence Insurance Name Policy Number Policy Hernandez Covered Member ID Hernandez Member ID Guarantor Name 05/27/2023 1 [facility] - MEDICARE COMPLETE CHOICE (MEDICARE REPLACEMENT PPO) [id number] Noreen Burgos [id number] Noreen Burgos 08/25/2023 1 [facility] - MEDICARE COMPLETE CHOICE (MEDICARE REPLACEMENT PPO) [id number] Noreen Burgos [id number] Noreen Burgos 11/24/2023 1 [facility] - MEDICARE COMPLETE CHOICE (MEDICARE REPLACEMENT PPO) [id number] Noreen Burgos [id number] Noreen Burgos 06/16/2024 1 [facility] - MEDICARE COMPLETE CHOICE (MEDICARE REPLACEMENT PPO) [id number] Noreen Burgos [id number] Noreen Burgos 11/20/2024 1 [facility] - MEDICARE COMPLETE CHOICE (MEDICARE REPLACEMENT PPO) [id number] Noreen Burgos [id number] Noreen Burgos Notes Date Note Type Note Provider Name and Address Organization Details Recorded Time 05/27/2023 text/html 1. Pt in office for f/u on bp. Pt states her pressures have been running low.2. Pt states she is off the Verzenio for 10 days d/t excessive diarrhea. LISETTE Ricci [address], [place], [address], [employer] 05/27/2023 20:01:31 08/25/2023 text/html 08/25/23: 1. Pt i n office for 3 month f/u appt. Pt states she has an appt with provider that specializes in Huerta's Palsy. States she is still having trouble eating and speaking.2. Pt reports she has f/u with oncology group at the beginning of September and wants to take lab orders with her to be drawn at that appt.3. Pt states she had URI sx a few weeks ago. States her home covid tests were negative, but didn't get tested for flu or rsv. Pt states she lost her sense of taste and smell. 05/27/23: 1. Pt in office for f/u on bp. Pt states her pressures have been running low.2. Pt states she is off the Verzenio for 10 days d/t excessive diarrhea. LISETTE Ricci [address], [place], [address], [employer] 08/25/2023 12:02:40 11/24/2023 text/html Appetite is ok, does have some difficulty eating due facial palsy, will be starting therapy for the palsy. She does feel she is eating ok overall. Done with chemo now. She does take exemestane which causes diarrhea but she does ok with immodium. has left axillary lymphadenopathy which has caused left arm lymphedema and is wearing compression sleeve. A1c 5.8 09/23/23 Iliana Lee MD [address] [facility] [address], [place], [address], [employer] 11/24/2023 11:21:26 06/16/2024 text/html pt is here for f/u Jordon palma, [employer] [address] [facility] [address], [place], [address], [employer] 06/16/2024 09:08:39 11/20/2024 text/html Noreen presents t lenora to [facility] care and her Medicare Annual Wellness exam. She states that she has breast cancer in 2020, she states that she has chemotherapy and immunotherapy. She states that her cancer was on the side where it was not seen on the mammogram. She walks with a cane. Leny Rodriguez APRN [address], [facility] [address], [place], [address], [employer] 11/20/2024 10:12:41 OBGyn Episode No OBEpisode recorded.
--- OUTSIDE RECORDS SUMMARY | 2025-02-05 08:31 | XMS_ITS | CONTINUITY OF CARE DOCUMENT ---
Author Name loy granado Address Unknown Organization [facility] Office Address [address] [place] [address] [address] [place] [address] Phone [phone] Care Team Providers Care Supervisor Correspondence Section Name Role Phone loy granado Unavailable Unavailable INSURANCE PROVIDERS Payer name Policy type / Coverage type [place] [employer] party ID [facility] [id number] Other [id number] [place] [id number]
--- OUTSIDE RECORDS SUMMARY | 2025-02-05 08:31 | XMS_ITS | Clinical Summary ---
Author Organization [facility] [address] Address [address] [place] [address] Care Team Providers Care Supervisor Boiler Repair Name Role Phone Griffin Peterson MD Unavailable [phone] Zane Jeffery MD Unavailable Tahmina Antoine NP Unavailable [phone] Vidhya Avila MD Unavailable [phone] Anuj Contreras MD Unavailable [phone] Eri Green DO Unavailable Dev Concepcion MD Primary Care Provider + Shashi Jerez MD Unavailable [phone] Allergies Active Allergy Reactions Criticality Noted Date Comments Amoxicillin Angioedema High Ciprofloxacin Rash Medium 11/20/2020 Medications fexofenadine (MONA) 60 mg tablet Take 1 tablet (60 mg total) by mouth daily as needed Active ProAir HFA 90 mcg/actuation inhalerIndication s:Chronic Obstructive Pulmonary Disease Inhale 2 puffs every 4 (four) hours as needed for wheezing 1 each 3 12/19/ 022 Active fluticasone propionate (FLONASE) 50 mcg/actuation nasal spray Administer 1 spray into each nostril daily as needed for rhinitis Active FeroSuL 325 mg (65 mg iron) tablet TAKE 1 TABLET BY MOUTH TWICE DAILY 60 tablet 2 024 Active fulvestrant (FASLODEX) 250 mg/5 mL syringe Inject 5 mL (250 mg total) into the muscle as instructed every 30 (thirty) days Cancer shots Active ibandronate (BONIVA) 150 mg tablet Take 1 tablet (150 mg total) by mouth every 30 (thirty) days Active meclizine (ANTIVERT) 25 mg tablet Take 1 tablet (25 mg total) by mouth 3 (three) times a day as needed for dizziness 30 tablet 024 Active apixaban (ELIQUIS) 2.5 mg tabletIndications :Venous Thrombosis Take 1 tablet (2.5 mg total) by mouth every 12 (twelve) hours 180 tablet 3 024 2024 Active dexAMETHasone oral liquid 0.5 mg/5 mL Take 10 mL (1 mg total) by mouth 4 (four) times a day Swish for 2 minutes then spit out 1200 mL 1 024 Active magnesium oxide (MAG-OX) 400 mg (241.3 mg elemental magnesium) tabletIndications :hypomagnesemia Take 1 tablet (400 mg total) by mouth daily 30 tablet 6 024 2024 Active gabapentin (NEURONTIN) 100 mg capsule TAKE 1 CAPSULE(100 MG) BY MOUTH THREE TIMES DAILY 90 capsule 1 Active metoprolol XL (TOPROL-XL) 25 mg extended release tablet TAKE 1 TABLET(25 MG) BY MOUTH DAILY 90 tablet 3 025 Active triamcinolone (KENALOG) 0.1 % cream Apply 1 g topically 2 (two) times a day as needed for irritation or rash Active ondansetron ODT (ZOFRAN-ODT) 4 mg disintegrating tablet Take 1 tablet (4 mg total) by mouth every 12 (twelve) hours as needed for nausea or vomiting 12 tablet 025 Active everolimus (Afinitor) 10 mg tabletIndications :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, estrogen receptor positive (HCC),Encounter for person encountering health services Take 1 tablet (10 mg total) by mouth daily 28 tablet 2 025 Active calcitRIOL (ROCALTROL) 0.25 mcg capsule TAKE 1 CAPSULE(0.25 MCG) BY MOUTH 3 TIMES A WEEK 12 capsule 5 025 Active traMADoL (ULTRAM) 50 mg tablet Take 1 tablet (50 mg total) by mouth every 8 (eight) hours as needed for pain 30 tablet 025 Active cyclobenzaprine (FLEXERIL) 10 mg tablet Take 1 tablet (10 mg total) by mouth every 8 (eight) hours as needed for muscle spasms 30 tablet 025 Active tiZANidine (ZANAFLEX) 2 mg tablet Take 1 tablet (2 mg total) by mouth every 6 (six) hours as needed for muscle spasms Active furosemide (LASIX) 20 mg tablet Take 1 tablet (20 mg total) by mouth daily as needed Active omeprazole (PriLOSEC) 10 mg capsule Take 1 capsule (10 mg total) by mouth daily as needed (for stomach upset) Active omeprazole (PriLOSEC) 10 mg capsule Take 1 capsule (10 mg total) by mouth daily 2024 Discontinued(D uplicate order) furosemide (LASIX) 20 mg tabletIndications :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, estrogen receptor positive (HCC) Take 1 tablet (20 mg total) by mouth daily 024 2024 Discontinued(D uplicate order) ALPRAZolam (XANAX) 0.25 mg tablet Take 1 tablet (0.25 mg total) by mouth 3 (three) times a day as needed for anxiety 30 tablet 025 2024 Discontinued cyclobenzaprine (FLEXERIL) 10 mg tablet Take 1 tablet (10 mg total) by mouth every 8 (eight) hours as needed for muscle spasms 30 tablet 025 2024 Discontinued(R eorder) Active Problems Problem Noted Date Diagnosed Date [...] and management of unspecified implanted device 02/24/2023 senior living (current) use of aromatase inhibitors 02/18/2023 Congestive [...] from 03/25/2020:Stage IV(cT3, cN3c, cM1, G3, ER+, ID-, HER2-) - Unsigned Assessment & Plan (03/09/2022 10:39 AM CDT): Patient continues to see . MICHELLE on CPAP 03/15/2019 Assessment & Plan (10/15/2023 8:56 AM GAS METER INSTALLER): Due to continued symptoms, the patient will [...] months. Assessment & Plan (12/19/2021 10:14 AM GAS METER INSTALLER): Patient continue to wear CPAP at 8 cm water pressure while sleeping. Her DME is manuel Hernandez. I did send an order for new mask, hose and filter. Assessment & Plan (11/20/2020 8:23 AM GAS METER INSTALLER): The patient will continue with CPAP therapy at 8 cm water pressure to treat obstructive sleep apnea. The DME company is provider [employer]. The patient is benefitting from CPAP therapy. Assessment & Plan (09/13/2019 11:04 AM GAS METER INSTALLER): I will send an order to Provider [employer] to show her a variety of new styles of CPAP mask.. She continues to benefit from CPAP at 8 cm water pressure. Centrilobular emphysema 03/15/2019 Assessment & Plan (10/15/2023 8:56 AM GAS METER INSTALLER): Due to continued symptoms, the patient has [...] basis. Assessment & Plan (12/19/2021 10:14 AM GAS METER INSTALLER): I did reorder the patient's albuterol inhaler. The patient continues her albuterol as needed up to 4 times a day for shortness of breath. Assessment & Plan (11/20/2020 8:48 AM GAS METER INSTALLER): The patient will continue with an albuterol rescue inhaler p.r.n. up to 4 times a day as needed for shortness of breath, cough, wheeze, or COPD symptoms. A 6 minutes walk test has been ordered to evaluate the patient shortness of breath to see if she needs oxygen therapy. Assessment & Plan (09/13/2019 11:05 AM GAS METER INSTALLER): The patient has stage I COPD. I will prescribe her rescue inhaler for her to use on a p.r.n. basis. Hypertension associated with diabetes 01/09/2016 Sensation of chest tightness 08/19/2012 Difficulty breathing 08/19/2012 Mixed diabetic hyperlipidemi a associated with type 2 diabetes mellitus ([facility]) 08/19/2012 Resolved Problems Problem Noted Date Diagnosed Date Resolved Date Hyperlipidemia 08/19/2012 03/17/2022 Encounters Date Type Department Care Team Description 02/01/2025 12:04 PM CDT - 02/01/2025 3:54 PM CDT Emergency [facility] Emergency Department [address] [place] [phone] Ian Ramirez MD Palpitations (Primary Dx); Generalized weakness Discharge Disposition: Discharge to home or self care 02/01/2025 Telephone [facility] Cardiology [address] [place] [address] Shashi Jerez MD 01/26/2025 12:11 PM CDT - 01/26/2025 11:59 PM CDT Hospital Encounter [facility] MRI [address] [place] [address] Spinal stenosis of lumbar region, unspecified whether neurogenic claudication present Discharge Disposition: Discharge to home or self care 01/15/2025 10:00 AM CDT Infusion [facility] [address] [place] [address] [address] [place] [phone] 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, estrogen receptor positive (HCC) 01/15/2025 Orders Only [facility] Oncology [address] [facility] [address] [place] [phone] Eri Green DO 01/08/2025 8:47 AM CDT - 01/08/2025 11:59 PM CDT Hospital Encounter [facility] [address] [address] Zane Jeffery MD Spinal stenosis of lumbar region, unspecified whether neurogenic claudication present Discharge Disposition: Discharge to home or self care 12/27/2024 Orders Only [facility] [address] [address] Dede Reyez RN 12/27/2024 Orders Only [facility] [address] [address] Dede Reyez RN 12/27/2024 Orders Only [facility] [address] [address] Dede Reyez RN 12/27/2024 Telephone [facility] [address] [address] Dede Reyez RN 12/25/2024 1:52 PM GAS METER INSTALLER - 12/25/2024 11:59 PM GAS METER INSTALLER Hospital Encounter [facility] [address] [address] Zane Jeffery MD Spinal stenosis of lumbar region, unspecified whether neurogenic claudication present (Primary Dx); Bulge of lumbar disc without myelopathy; Neural foraminal stenosis of lumbar spine; Radiculopathy, lumbar region Discharge Disposition: Discharge to home or self care 12/25/2024 Telephone [facility] [address] [facility] [address] [place] [phone] Wendy Dinh RN 12/22/2024 11:15 AM GAS METER INSTALLER - 12/22/2024 11:59 PM GAS METER INSTALLER Hospital Encounter [facility] [address] [address] Zane Jeffery MD Spinal stenosis of lumbar region, unspecified whether neurogenic claudication present (Primary Dx); Spinal stenosis, lumbar region, without neurogenic claudication; Bulge of lumbar disc without myelopathy; Neural foraminal stenosis of lumbar spine; Radiculopathy, lumbar region Discharge Disposition: Discharge to home or self care 12/20/2024 2:27 PM GAS METER INSTALLER - 12/20/2024 11:59 PM GAS METER INSTALLER Hospital Encounter [facility] [address] [place] [address] 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, estrogen receptor positive (HCC); 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); Lumbar radiculopathy Discharge Disposition: Discharge to home or self care 12/18/2024 9:15 AM GAS METER INSTALLER [facility] at [address] [place] [address] 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, estrogen receptor positive (HCC) (Primary Dx); Encounter for person encountering health services 12/18/2024 8:45 AM GAS METER INSTALLER Office Visit [facility] Phys[facility] Oncology [address] [place] [address] [address] [place] [address] Eri Green DO 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, estrogen receptor positive (HCC) (Primary Dx); Encounter for person encountering health services; 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); Lumbar radiculopathy 12/18/2024 8:15 AM GAS METER INSTALLER Clinical Support [facility] at [address] [phone] Encounter for person encountering health services; 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, estrogen receptor positive (HCC) 12/18/2024 Telephone [facility] Phys[facility] Oncology [address] [place] [phone] Alondra Alvarado 12/18/2024 Orders Only [facility] Oncology [address] [place] [phone] Eri Green DO 12/11/2024 10:59 AM GAS METER INSTALLER - 12/11/2024 11:59 PM GAS METER INSTALLER Hospital Encounter [facility] Medical Office Building [address] [facility] [place] [address] 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, estrogen receptor positive (HCC) Discharge Disposition: Discharge to home or self care 12/06/2024 1:00 PM GAS METER INSTALLER Ancillary Procedure [facility] Cardiology [address] [facility] [address] [place] [address] Cardiomyopathy, unspecified type (HCC) 11/27/2024 12:52 PM GAS METER INSTALLER - 11/27/2024 5:29 PM GAS METER INSTALLER Emergency [facility] Emergency Department [address] [place] [address] Mark Gill MD Enteritis (Primary Dx) Discharge Disposition: Discharge to home or self care 11/20/2024 11:45 AM GAS METER INSTALLER Infusion 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, estrogen receptor positive (HCC) 11/19/2024 Orders Only [facility] Oncology [address] [place] [phone] Eri Green DO 11/16/2024 3:30 PM GAS METER INSTALLER Office Visit [facility] Medical [facility] Cardiology [address] [facility] [address] [place] [phone] Shashi Jerez MD Cardiomyopathy, unspecified type (HCC) (Primary Dx); Mixed diabetic hyperlipidemia associated with type 2 diabetes mellitus (CMS/HCC) (HCC); History of DVT (deep vein thrombosis); Status post ablation of atrial fibrillation; Chronic anticoagulation; Paroxysmal atrial fibrillation (HCC) 11/09/2024 8:15 AM GAS METER INSTALLER Clinical Support 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, estrogen receptor positive (HCC) (Primary Dx); Encounter for person encountering health services from Last 3 Months Immunizations Immunization Administration Dates Next Due Influenza, Quadrivalent, Hig h Dose, Preservative Free, Intrr 08/21/2022 Influenza, Trivalent, Adjuva nted, Intramuscular 08/17/2018 Influenza, Trivalent, High D ose, Split, Preservative Free, Intramuscular 11/20/2019,09/20/2017 Influenza, Trivalent, IM (MDV) 11/01/2014 Influenza, Unspecified 08/21/2022,07/17/2021 Moderna SARS-CoV-2 Monovalen t Vaccination (12+ YRS) 02/09/2022,08/21/2021,01/07/2021,12/04 Pneumococcal Conjugate PCV 13 09/22/2018 Pneumococcal Polysaccharide PPV23 09/20/2017 Tdap 12/12/2017 Surgical History Surgery Date Site/Laterality Comments SECTION CARPAL TUNNEL RELEASE ULNAR NERVE REPAIR COLONOSCOPY BREAST LUMPECTOMY ABLATION BREAST BIOPSY 03/01/2020 Left US GUIDED BIOPSY LYMPH NODE SUPERFICIAL LEFT 1 N/A US GUIDED BIOPSY LYMPH NODE SUPERFICIAL LEFT 12/18/2022 N/A US GUIDED BIOPSY LYMPH NODE SUPERFICIAL LEFT 4 N/A Medical History Medical History Date Comments COPD (chronic obstructive pulmonary disease) (HC C) MICHELLE (obstructive sleep apnea) Solitary pulmonary nodule Diabetes mellitus (HCC) Hyperlipidemia Breast cancer (HCC) 02/2020 left breast History of chemotherapy 2020 BRCA2 negative Allergic rhinitis GERD (gastroesophageal reflux disease) PSVT (paroxysmal supraventricular tachycardia) Family History Medical History Relation Name Comments Breast cancer Daughter Heart disease Father Heart disease Mother Breast cancer Mother's Sister 1 Breast cancer Mother's Sister 2 Relation Name Status Comments Daughter Father (Age 89) Mother (Age 87) Mother's Sister 1 Mother's Sister 2 Social History Tobacco Use Types Packs/Day Years Used Date Smoking Tobacco: Former Cigarettes 1 975 - 1984 Smokeless Tobacco: Never Tobacco Cessation:Counseling Given: Not Answered Alcohol Use Standard Drinks/Week Comments Not Currently [...] on file Legal Sex Female 1:01 AM GAS METER INSTALLER Gender Identity Female 10/21/2023 6:48 AM GAS METER INSTALLER Sexual Orientation Straight 10/21/2023 6: 48 AM GAS METER INSTALLER Obstetrics History Para Term AB IAB SAB Ectopic Multiple Livin g Live Births 6 4 4 Date Outcome GA Total Labor Labor/2nd/3rd Weight Sex Type Anes PTL Cary A1 A5 Name Clin Term Term Term Term Last Filed Vital Signs Vital Sign Reading Time Taken Comments Blood Pressure 148/82 02/01/2025 3:30 PM CDT Pulse 106 02/01/2025 3:30 PM CDT Temperature 36.6 C (97.8 F) 02/01/2025 11:48 AM CDT Respiratory Rate 24 02/01/2025 3:30 PM CDT Oxygen Saturation 97% 02/01/2025 3:30 PM CDT Inhaled Oxygen Concentration - - Weight 46 kg (101 lb 6.6 oz) 02/01/2025 11:48 AM CDT Height 149.9 cm (4' 11 ) 11/27/2024 12:32 PM GAS METER INSTALLER Body Mass Index 20.48 11/27/2024 12:32 PM GAS METER INSTALLER Plan of Treatment Health Maintenance Due Date Last Done Comments Albumin Creatinine Ratio, Urine 1944 Depression Screening 1945 Dilated Eye Exam 1944 Foot Exam 1945 Hepatitis B Screening 01/28/1962 Well Visit 65+ 01/28/2009 Fall Risk Assessment 12/21/2023 12/21/2022 Covid-19 Vaccine (2023-2 5 season) 2024 07/27/2023, 08/18/2022, 02/09/2022, Additional history exists Osteoporosis Screening-Bone Density Scan 01/15/2025 01/15/2023, 01/15/2023 Hemoglobin A1C 05/20/2025 11/20/2024, 08/27, 05/26/2023, Additional history exists Lipid Panel 11/20/2025 11/20/2024, 12/23, 03/17/2022, Additional history exists eGFR 02/01/2026 02/01/2025, 12/24, 12/18/2024, Additional history exists DTaP/Tdap/Td Vaccine (2 - Td or Tdap) 12/12/2027 12/12/2017 Pneumococcal vaccine 65+ Completed 09/22/2018, 08/26 Zoster Vaccine Completed 01/01/2023, 11/02/2022 Influenza Vaccine Completed 06/30/2024, , 08/21/2022, Additional history exists Medical Devices Implanted Type Area Ed Educational Aide Device Identifier Shelf Expiration Date Model / Serial / Lot Clip Implanted:Qty: 1 on 12/18/2022 by Art Malik MD at [facility] Left[facility] [id number] Procedures Procedure Name Priority Date/Time Associated Diagnosis Comments TROPONIN T HIGH-SENSITIVITY 2-HOUR Timed 02/01/2025 1:51 PM CDT XR CHEST 1 VIEW ED 02/01/2025 12:05 PM CDT PRO B-TYPE NATRIURETIC PEPTIDE STAT 02/01/2025 12:00 PM CDT THYROID FUNCTION CASCADE STAT 02/01/2025 12:00 PM CDT MAGNESIUM STAT 02/01/2025 12:00 PM CDT EGFR STAT 02/01/2025 12:00 PM CDT DIFFERENTIAL AUTO STAT 02/01/2025 12:00 PM CDT TROPONIN T HIGH-SENSITIVITY SERIES (BASELINE, 2HR, 4HR, 6HR) STAT 02/01/2025 12:00 PM CDT COMPREHENSIVE METABOLIC PANEL STAT 02/01/2025 12:00 PM CDT CBC WITH AUTO DIFFERENTIAL STAT 02/01/2025 12:00 PM CDT ECG 12-LEAD STAT 02/01/2025 11:56 AM CDT MRI LUMBAR SPINE WO CONTRAST Schedule Routine, Read Routine (OP Routine) 01/26/2025 12:58 PM CDT Spinal stenosis of lumbar region, unspecified whether neurogenic claudication present EGFR STAT 01/15/2025 9:08 AM CDT Encounter for person encountering health services 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, estrogen receptor positive (HCC) COMPREHENSIVE METABOLIC PANEL STAT 01/15/2025 9:08 AM CDT Encounter for person encountering health services 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, estrogen receptor positive (HCC) PAIN MGMT IMAGING LUMBAR/SACRAL SELECTIVE NERVE ROOT INJ (TFE) BILATERAL Schedule Routine, Read Routine (OP Routine) 01/08/2025 10:58 AM CDT Spinal stenosis of lumbar region, unspecified whether neurogenic claudication present PAIN MGMT IMAGING LUMBAR/SACRAL SELECTIVE NERVE ROOT INJ (TFE) BILATERAL Schedule Routine, Read Routine (OP Routine) 12/25/2024 3:20 PM GAS METER INSTALLER Bulge of lumbar disc without myelopathy Spinal stenosis of lumbar region, unspecified whether neurogenic claudication present CT LUMBAR SPINE W WO CONTRAST Schedule Routine, Read Routine (OP Routine) 12/20/2024 2:45 PM GAS METER INSTALLER 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, 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) Lumbar radiculopathy EGFR STAT 12/18/2024 8:21 AM GAS METER INSTALLER Encounter for person encountering health services 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, estrogen receptor positive (HCC) DIFFERENTIAL AUTO Routine 12/18/2024 8:2 1 AM GAS METER INSTALLER Encounter for person encountering health services 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, estrogen receptor positive (HCC) CBC WITH AUTO DIFFERENTIAL Routine 12/18/2024 8:21 AM GAS METER INSTALLER Encounter for person encountering health services 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, estrogen receptor positive (HCC) COMPREHENSIVE METABOLIC PANEL STAT 12/18/2024 8:21 AM GAS METER INSTALLER Encounter for person encountering health services 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, estrogen receptor positive (HCC) CT CHEST ABDOMEN PELVIS WO CONTRAST Schedule Routine, Read Routine (OP Routine) 12/11/2024 11:18 AM GAS METER INSTALLER 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, estrogen receptor positive (HCC) TRANSTHORACIC ECHO (TTE) COMPLETE W DOPPLER/CF WO CONTRAST Routine 12/06/2024 1:15 PM GAS METER INSTALLER Cardiomyopathy, unspecified type (HCC) SEPSIS LACTATE WITH REFLEX Timed 11/27/2024 4:[address] ABDOMEN PELVIS WO CONTRAST ED 11/27/2024 3:08 PM GAS METER INSTALLER TROPONIN T HIGH-SENSITIVITY 2-HOUR Timed 11/27/2024 2:30 PM GAS METER INSTALLER STOOL CULTURE Routine 11/27/2024 2:30 PM GAS METER INSTALLER ECG 12-LEAD STAT 11/27/2024 12:51 PM GAS METER INSTALLER SEPSIS LACTATE WITH REFLEX STAT 11/27/2024 12:48 PM GAS METER INSTALLER INFLUENZA A/B, RSV, AND COVID-19 PCR STAT 11/27/2024 12:48 PM GAS METER INSTALLER TROPONIN T HIGH-SENSITIVITY SERIES (BASELINE, 2HR, 4HR, 6HR) STAT 11/27/2024 12:38 PM GAS METER INSTALLER EGFR STAT 11/27/2024 12:38 PM GAS METER INSTALLER DIFFERENTIAL AUTO STAT 11/27/2024 12:38 PM GAS METER INSTALLER COMPREHENSIVE METABOLIC PANEL STAT 11/27/2024 12:38 PM GAS METER INSTALLER CBC WITH AUTO DIFFERENTIAL STAT 11/27/2024 12:38 PM GAS METER INSTALLER EGFR STAT 11/20/2024 11:16 AM GAS METER INSTALLER Encounter for person encountering health services 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, estrogen receptor positive (HCC) DIFFERENTIAL AUTO Routine 11/20/2024 11:16 AM GAS METER INSTALLER HEMOGLOBIN A1C Routine 11/20/2024 11:16 AM GAS METER INSTALLER VITAMIN D 25 HYDROXY Routine 11/20/2024 11:16 AM GAS METER INSTALLER TSH Routine 11/20/2024 11:16 AM GAS METER INSTALLER CBC WITH AUTO DIFFERENTIAL Routine 11/20/2024 11:16 AM GAS METER INSTALLER LIPID PANEL Routine 11/20/2024 11:16 AM GAS METER INSTALLER PRO B-TYPE NATRIURETIC PEPTIDE Routine 11/20/2024 11:16 AM GAS METER INSTALLER IRON PROFILE W/ IBC Routine 11/20/2024 11:16 AM GAS METER INSTALLER COMPREHENSIVE METABOLIC PANEL STAT 11/20/2024 11:16 AM GAS METER INSTALLER Encounter for person encountering health services 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, estrogen receptor positive (HCC) EGFR Routine 11/09/2024 7:49 AM GAS METER INSTALLER 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, estrogen receptor positive (HCC) DIFFERENTIAL AUTO Routine 11/09/2024 7:4 9 AM GAS METER INSTALLER 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, estrogen receptor positive (HCC) COMPREHENSIVE METABOLIC PANEL Routine 11/09/2024 7:49 AM GAS METER INSTALLER 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, estrogen receptor positive (HCC) CBC WITH AUTO DIFFERENTIAL Routine 11/09/2024 7:49 AM [employer] 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, estrogen receptor positive (HCC) DEXA AXIAL SKELETON BONE DENSITY 1 OR MORE SITES Schedule Routine, Read Routine (OP Routine) 01/15/2023 1:26 PM CDT 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 Testing performed by: [address] [address] Trop T hs delta 2 ng/L GEETHA BENJAMIN Comment:Testing performed by : [facility], [address] [place] [address]., [address] Trop T hs interp Insignificant GEETHA BENJAMIN Comment:Testing performed by : [address] [address] Blood 02/01/2025 1:51 PM CDT 02/01/2025 2:12 PM CDT Brii GÓMEZ LAB BLOOD ORDERABLES Final Resu lt GEETHA [address] [facility] [place] [address] * XR Chest 1 Vw Portable (if patient condition/safety warrant portable) (02/01/2025 12:05 PM CDT) Anatomical Region Laterality Modality Body, Chest N/A Computed Radiogr aphy 02/01/2025 2:22 PM CDT Narrative 02/01/2025 2:24 PM CDT EXAM DESCRIPTION: XR CHEST 1 VIEW REASON FOR STUDY: chest pain Shortness of breath and rapid heart rate for 3 days TECHNIQUE: 1 radiographic view(s) of the chest. COMPARISON: 12/18/2022 FINDINGS: LUNGS: There are linear appearing opacities at the left lung base, most suggestive of atelectasis. Recommend clinical correlation to exclude pneumonia.. The right lung is clear. No pleural effusion or pneumothorax is seen. HEART/MEDIASTINUM: Cardiomediastinal contours and heart size are unchanged. There is aortic atherosclerosis. LINES/TUBES: Left internal jugular approach central venous catheter tip projects near the brachiocephalic vein confluence, unchanged. BONES: No acute displaced fracture or aggressive bone lesion is identified. Vertebroplasty is noted Biopsy clips are present in the left breast or axilla. IMPRESSION: Linear appearing opacities at the left lung base, most suggestive of atelectasis. Recommend clinical correlation to exclude pneumonia. THIS IS AN ELECTRONICALLY VERIFIED FINAL REPORT 02/01/2025 2:24 PM - Electronically signed by Tom Huggins M.D. MZ: CHRIS Report ID: [id number] Reading Location: [place] [address] Procedure Note Tom Huggins MD - 02/01/2025 EXAM DESCRIPTION: XR CHEST 1 VIEW REASON FOR STUDY: chest pain Shortness of breath and rapid heart rate for 3 days TECHNIQUE: 1 radiographic view(s) of the chest. COMPARISON: 12/18/2022 FINDINGS: LUNGS: There are linear appearing opacities at the left lungbase, most suggestive of atelectasis. Recommend clinical correlation to exclude pneumonia.. The right lung is clear. No pleural effusion or pneumothoraxis seen. HEART/MEDIASTINUM: Cardiomediastinal contours and heart size areunchanged. There is aortic atherosclerosis. LINES/TUBES: Left internal jugular approach central venous catheter tip projects near the brachiocephalic vein confluence, unchanged. BONES: No acute displaced fracture or aggressive bone lesion isidentified. Vertebroplasty is noted Biopsy clips are present in the left breast or axilla. IMPRESSION: Linear appearing opacities at the left lung base, mostsuggestive of atelectasis. Recommend clinical correlation to exclude pneumonia. THIS IS AN ELECTRONICALLY VERIFIED FINAL REPORT 02/01/2025 2:24 PM - Electronically signed by Tom Huggins M.D. MZ: MZ Report ID: [id number] Reading Location: [id number] us rBii GÓMEZ IMG XR PROCEDURES Final Result * (ABNORMAL) Troponin T high-sensitivity series (baseline, 2hr, 4hr, 6hr) (02/01/2025 12:00 PM CDT) Trop T hs 41(H) <=14 ng/L Comment: Interpretive Data For further hscTnT resources including the diagnostic algorithm and an aid in interpretation, copy and paste this link: https://nrl.testcatalog.org/show/hsTrop Current Interpretive Data last revised 2020. Testing performed by: [facility], [address] [place] [address]., [address] Blood 02/01/2025 12:0 0 PM CDT 02/01/2025 12:04 PM CDT us Brii GÓMEZ LAB BLOOD ORDERABLES Final [facility] lt [facility] [address] [facility] Department [place] [address] * (ABNORMAL) eGFR (02/01/2025 12:00 PM CDT) eGFR 39(L) >=60 mL/min/1. 73 m2 Comment: Interpretive Data Reference Interval Normal >/= 90 mL/min/1.73m2 Mildly decreased* 60 - 89 mL/min/1.73m2 Mildly to moderately decreased 45 - 59 mL/min/1.73m2 Moderately to severely decreased 30 - 44 mL/min/1.73m2 Severely decreased 15 - 29 mL/min/1.73m2 Kidney Failure < 15 mL/min/1.73m2 *Relative to young adult level Estimated glomerular filtration rate is determined by the 2020 CKD-EPI equation recommended by the National Kidney Foundation (A Unifying Approach to GFR Estimation: Recommendations of the NKF-ASK Task Force on Reassessing the Inclusion of Race in Diagnosing Kidney Disease, JASN 202). The CKD-EPI equation should not be used for patients with unstable renal function and has not been validated in children and those over 70. Current interpretive data was last reviewed 2021. Testing performed by: [address] [address] Blood 02/01/2025 12:0 0 PM CDT 02/01/2025 12:04 PM CDT us Brii GÓMEZ LAB BLOOD ORDERABLES Final Resu lt GEETHA BENJAMIN [address] [place] [address] [place] [address] * (ABNORMAL) Differential, auto (02/01/2025 12:00 PM CDT) Neutrophil abs 2.02 1.50 - 6.50 K/cumm Comment:Testing performed by : [address] [address] Imm gran abs 0.01 0.00 - 0.10 K/cumm GEETHA Comment:Testing performed by : [address] [address] Lymphocyte abs 0.75(L) 0.80 - 3.30 K/cumm GEETHA Comment:Testing performed by : [address] [address] Monocyte abs 0.37 0.20 - 0.80 K/cumm GEETHA Comment:Testing performed by : [address] [address] Eosinophil abs 0.12 0.00 - 0.50 K/cumm GEETHA Comment:Testing performed by : [address] [address] Basophil abs 0.02 0.00 - 0.10 K/cumm GEETHA Comment:Testing performed by : [address] [address] Neutrophil pct 61.5 % [facility] Comment: Interpretive Data Percent cell count reference ranges are not reported, since discordance with absolute values may lead to misinterpretation of CBC data. Current Interpretive Data was last revised on 2018. Testing performed by: [address] [address] Imm gran pct 0.3 % [facility] Comment: Interpretive Data Percent cell count reference ranges are not reported, since discordance with absolute values may lead to misinterpretation of CBC data. Current Interpretive Data was last revised on 2018. Testing performed by: [address] [address] Lymphocyte pct 22.8 % [facility] Comment: Interpretive Data Percent cell count reference ranges are not reported, since discordance with absolute values may lead to misinterpretation of CBC data. Current Interpretive Data was last revised on 2018. Testing performed by: [address] [address] Monocyte pct 11.2 % [facility] Comment: Interpretive Data Percent cell count reference ranges are not reported, since discordance with absolute values may lead to misinterpretation of CBC data. Current Interpretive Data was last revised on 2018. Testing performed by: [address] [address] Eosinophil pct 3.6 % [facility] Comment: Interpretive Data Percent cell count reference ranges are not reported, since discordance with absolute values may lead to misinterpretation of CBC data. Current Interpretive Data was last revised on 2018. Testing performed by: [address] [address] Basophil pct 0.6 % [facility] Comment: Interpretive Data Percent cell count reference ranges are not reported, since discordance with absolute values may lead to misinterpretation of CBC data. Current Interpretive Data was last revised on 2018. Testing performed by: [address] [address] Blood 02/01/2025 12:0 0 PM CDT 02/01/2025 12:04 PM CDT Brii GÓMEZ LAB BLOOD ORDERABLES Final Resu lt [facility] [address] [facility] Department [place] [address] * (ABNORMAL) Pro B-type natriuretic peptide (02/01/2025 12:00 PM CDT) NT-proBNP 2,107(H) <=450 pg/mL Comment: Interpretive Comments: A. Dyspnea in Acute Care Setting All Ages: < 300 pg/ml, acute heart failure unlikely. < 50 yrs: 300 - 450 pg/ml, further investigation warranted. > 450 pg/ml, acute heart failure likely. 50 - 74 yrs: 300 - 900 pg/ml, further investigation warranted. > 900 pg/ml, acute heart failure likely . > or = 75 yrs: 450 - 1800 pg/ml, further investigation warranted. > 1800 pg/ml, acute heart failure likely. B. Non-acute Setting < 75 yrs < 125 pg/ml, rules out heart failure. > or = 125 pg/ml, further investigation warranted. > or = 75 yrs < 450 pg/ml, rules out heart failure. > or = 450 pg/ml, further investigation warranted. - Knowledge of each individual patient's NT-proBNP range may be more useful than using similar cut-points for every patient. Please note that marked elevations in NT-proBNP levels may be observed in state other than Left Ventricular Congestive Failure, including: acute coronary syndromes, right heart strain/failure (including pulmonary embolism and cor pulmonale), critical illness, renal failure, as well as advanced age. - References: 1. José Miguel PECK et.al. Eur Heart J. 2006:27:330-337. 2. Octavio MERAZ, Billy ABRAMS. J. AM Eugenia Cardiol: Cardiovasc Imag. 2009;2: 216- 225. Interpretive Data Last Revised Date: 2018. Testing performed by: [facility], [address] [place] [address]., [address] Blood 02/01/2025 12:0 0 PM CDT 02/01/2025 12:04 PM CDT Mechelleab James JHAVERI LAB BLOOD ORDERABLES Final Resu lt Performing Organization Address City/[facility]/ZIP Co de Phone Number [facility] [address] [facility] [place] [address] * Thyroid Function [place] (02/01/2025 12:00 PM CDT) Pathologist [facility] TSH 1.09 0.30 - 4.20 mcIUnit/mL Comment:Testing performed by : [address] [address] Blood 02/01/2025 12:0 0 PM CDT 02/01/2025 12:04 PM CDT Rehab James JHAVERI LAB BLOOD ORDERABLES Final Resu lt Performing Organization Address [facility] Co de Phone Number [facility] [address] [facility] [place] [address] * (ABNORMAL) CBC with auto differential (02/01/2025 12:00 PM CDT) [facility] WBC 3.29(L) 3.80 - 9.90 K/cumm Comment:Testing performed by : [address] [address] Hgb 9.2(L) 11.9 - 15.5 g/dL GEETHA BENJAMIN Comment:Testing performed by : [address] [address] Hct 28.7(L) 35.6 - 45.5 % GEETHA BENJAMIN Comment:Testing performed by : [address] [address] Plt 163 150 - 400 K/cumm GEETHA BENJAMIN Comment:Testing performed by : [address] [address] MPV 10.2 9.1 - 12.3 fL GEETHA BENJAMIN Comment:Testing performed by : [address] [address] RBC 3.47(L) 3.90 - 5.20 M/cumm GEETHA BENJAMIN Comment:Testing performed by : [address] [address] MCV 82.7 81.3 - 96.4 fL GEETHA BENJAMIN Comment:Testing performed by : [address] [address] MCH 26.5(L) 27.1 - 33.3 pg GEETHA BENJAMIN Comment:Testing performed by : [address] [address] MCHC 32.1(L) 32.3 - 35.7 g/dL GEETHA BENJAMIN Comment:Testing performed by : [address] [address] RDW CV 14.6 11.1 - 14.9 % GEETHA Comment:Testing performed by : [address], [address] RDW SD 43.8 35.7 - 48.1 fL GEETHA Comment:Testing performed by : [address] [address] NRBC abs 0.00 0.00 - 0.01 K/cumm GEETHA Comment:Testing performed by : [address] [address] Blood Venous blood specimen / Unknown 02/01/2025 12:00 PM CDT 02/01/2025 12:04 PM CDT Brii GÓMEZ LAB BLOOD ORDERABLES Final Resu lt [facility] [address] Department [place] [address] * Magnesium (02/01/2025 12:00 PM CDT) Magnesium 1.4 1.4 - 2.5 mg/dL Comment:Testing performed by : [address] [address] Blood 02/01/2025 12:0 0 PM CDT 02/01/2025 12:04 PM CDT Ian Ramirez MD LAB BLOOD ORDERABLES Final Resu lt GEETHA [address] [facility] Department [place] [address] * (ABNORMAL) Comprehensive metabolic panel (02/01/2025 12:00 PM CDT) Sodium 138 135 - 145 mmol/L Comment:Testing performed by : [address] [address] Potassium, pl 3.9 3.3 - 4.9 mmol/L GEETHA Comment:Testing performed by : [address] [address] Chloride 101 97 - 110 mmol/L GEETHA Comment:Testing performed by : [address] [address] CO2 25 22 - 32 mmol/L GEETHA Comment:Testing performed by : [address] [address] Anion gap 12 2 - 15 mmol/L GEETHA Comment:Testing performed by : [address] [address] BUN 31(H) 6 - 25 mg/dL GEETHA Comment:Testing performed by : [address] [address] Creatinine 1.36(H) 0.60 - 1.10 mg/dL GEETHA Comment:Testing performed by : [address] [address] Glucose 262(H) 70 - 199 mg/dL GEETHA Comment: Interpretive Data Fasting glucose >/= 126 mg/dl is diagnostic for diabetes. Fasting is defined as no caloric intake for at least 8 hours. Fasting glucose between 100 mg/dl to 125 mg/dl is diagnostic of prediabetes. In a patient with classic symptoms of hyperglycemia or hyperglycemic crisis, a random glucose >/= 200 mg/dl is diagnostic for diabetes. In the absence of unequivocal hyperglycemia, results should be confirmed by repeat testing. The classification and Diagnosis of Diabetes Diabetes Care 2021; 46: S19-S40. Current interpretive data was last revised 2022. Testing performed by: [address] [address] Calcium 9.5 8.5 - 10.3 mg/dL GEETHA Comment:Testing performed by : [address] [address] Bilirubin, total 0.2 0.1 - 1.2 mg/dL GEETHA Comment:Testing performed by : [address] [address] Protein, pl 7.5 6.5 - 8.5 g/dL GEETHA Comment:Testing performed by : [address] [address] Albumin 4.0 3.5 - 5.0 g/dL GEETHA Comment:Testing performed by : [address] [address] Alk phos 86 40 - 130 Units/L GEETHA Comment:Testing performed by : [address] [address] ALT 20 7 - 45 Units/L GEETHA Comment:Testing performed by : [address] [address] AST 30 10 - 45 Units/L GEETHA Comment:Testing performed by : [address] [address] Blood 02/01/2025 12:0 0 PM CDT 02/01/2025 12:04 PM CDT Brii GÓMEZ LAB BLOOD ORDERABLES Final Resu lt Performing Organization Address City/State/[facility] Co de Phone Number GEETHA [address] [facility] Department [place] [address] * ECG 12 lead (02/01/2025 11:56 AM CDT) Ventricular Rate EKG/Min 118 BPM [facility] Atrial Rate 118 BPM [facility] ID-Interval (MSEC) 136 ms [facility] QRS-Interval (MSEC) 76 ms [facility] QT-Interval (MSEC) 302 ms [facility] QTc 423 ms [facility] P [place] 57 degrees [facility] R [place] 3 degrees [facility] T [place] 35 degrees [facility] Diagnosis Sinus tachycardia Otherwise normal ECG When compared with ECG of 27-NOV-2024 12:51, Vent. rate has increased BY 39 BPM Confirmed by JUSTIN ZENG M.D. ([id number]) on 02/02/2025 12:30:09 PM [facility] [employer] 02/01/2025 11:5 6 AM CDT 02/02/2025 12:30 PM CDT us Brii GÓMEZ ECG ORDERABLES Final Result [facility] [employer] [facility] * MRI Lumbar Spine WO Contrast (01/26/2025 12:58 PM CDT) Anatomical Region Laterality Modality Spine N/A Magnetic Resonan ce 01/26/2025 3:48 PM CDT Narrative 01/26/2025 3:57 PM CDT EXAM DESCRIPTION: MRI LUMBAR SPINE WO CONTRAST REASON FOR STUDY: L/S-spine canal stenosis, Low back pain, symptoms persist with > 6 wks treatment Patient stated her lower back pain has increased since falling in November 2024. 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 COMPARISON: Lumbar spine CT dated 12/20/2024. FINDINGS: SEGMENTATION: 5 vqr-boa-qoqhitj lumbar type vertebral bodies. ALIGNMENT: Focal kyphosis at T11-T12. VERTEBRAE: Chronic severe T11 vertebral body deformity with retropulsed posterior fragment is again seen. The T12 vertebral body compression fracture with retropulsed posterior fragment status post augmentation procedure as seen previously. The L1 vertebral body compression fracture has worsened when compared to the previous CT dated 12/20/2024. 45% central height loss and mild retropulsion of the posterior fragment. Associated STIR hyperintense signal in the L1 vertebral body extending into the posterior elements on both sides in keeping with acute to subacute injury. Multilevel endplate degenerative changes and marginal spur formation. Scattered Schmorl's node. Relative T1 hyperintense bone marrow signal is nonspecific and could reflect postradiation change. Request clinical correlation. DISC HEIGHT: Multilevel disc desiccation and height loss. HARDWARE: None in the spine. CORD/CAUDA: Conus medullaris terminates at L1. LOWER THORACIC: Incompletely imaged. Degenerative changes and retropulsed posterior fragment of T12 contributes to mild ventral spinal canal stenosis. INDIVIDUAL DISC LEVELS: T12-L1: Disc bulge retropulsed posterior corner of L1 fracture. Bilateral facet arthropathy. No significant spinal canal or neural foraminal narrowing. L1-L2: Disc bulge and tiny central disc protrusion. Bilateral facet arthropathy and trace facet joint effusion. No significant spinal canal or neural foraminal narrowing. L2-L3: Disc bulge with thickened ligamentum flavum and facet arthropathy. Trace facet joint effusion. Mild spinal canal stenosis. No significant neural foraminal narrowing. L3-L4: Disc bulge with thickened ligamentum flavum and facet arthropathy. Mild spinal canal stenosis. Mild right and no significant left neural foraminal narrowing. L4-L5: Disc bulge with thickened ligamentum flavum and facet arthropathy. Flattening of the ventral thecal sac. Mild neural foraminal narrowing. L5-S1: Disc bulge with marginal spur formation. Superimposed central disc protrusion. Bilateral facet arthropathy. Proliferation of epidural fat. No significant spinal canal stenosis. Mild neural foraminal narrowing. VISUALIZED UPPER ABDOMEN: Partially imaged hiatal hernia/intrathoracic stomach. Right renal rounded T2 hyperintense signal is incompletely characterized on this MRI and could reflect a cyst. OTHER: The lumbosacral posterior paraspinal soft tissue STIR hyperintense signal is nonspecific and could reflect a strain in the proper clinical scenario. IMPRESSION: 1. The L1 vertebral body height loss has worsened when compared to the previous lumbar spine CT dated 12/20/2024. Associated STIR hyperintense signal suggesting acute to subacute fracture with edema. 2. The T11 and T12 vertebral body deformities as noted on the previous lumbar spine CT. 3. Mvjg-in-tdcbskrp lumbar disc degeneration with thickened ligamentum flavum and facet arthropathy as described. Level by level details as above. THIS IS AN ELECTRONICALLY VERIFIED FINAL REPORT 01/26/2025 3:57 PM - Electronically signed by Zeus DELGADO T: Report ID: [id number] Reading Location: [place] [address] Procedure Note Zeus Jerez, DO - 01/26/2025 EXAM DESCRIPTION: MRI LUMBAR SPINE WO CONTRAST REASON FOR STUDY: L/S-spine canal stenosis, Low back pain, symptomspersist with > 6 wks treatment Patient stated her lower back pain has increased since falling in November 2024. Hx of Kyphoplasty and malignant neoplasm of axillary tail of leftbreast TECHNIQUE: Sagittal and Axial imaging includes T1, T2, STIR sequences. COMPARISON: Lumbar spine CT dated 12/20/2024. FINDINGS: SEGMENTATION: 5 byh-hwy-qkluigd lumbar type vertebral bodies. ALIGNMENT: Focal kyphosis at T11-T12. VERTEBRAE: Chronic severe T11 vertebral body deformity with retropulsed posterior fragment is again seen. The T12 vertebral body compressionfracture with retropulsed posterior fragment status post augmentation procedure asseen previously. The L1 vertebral body compression fracture has worsened when compared to the previous CT dated 12/20/2024. 45% central height loss and mild retropulsion of the posterior fragment. Associated STIR hyperintense signal in the L1 vertebral body extending into the posterior elements onboth sides in keeping with acute to subacute injury. Multilevel endplate degenerative changes and marginal spur formation. Scattered Schmorl'snode. Relative T1 hyperintense bone marrow signal is nonspecific and couldreflect postradiation change. Request clinical correlation. DISC HEIGHT: Multilevel disc desiccation and height loss. HARDWARE: None in the spine. CORD/CAUDA: Conus medullaris terminates at L1. LOWER THORACIC: Incompletely imaged. Degenerative changes andretropulsed posterior fragment of T12 contributes to mild ventral spinal canalstenosis. INDIVIDUAL DISC LEVELS: T12-L1: Disc bulge retropulsed posterior corner of L1 fracture. Bilateral facet arthropathy. No significant spinal canal or neural foraminalnarrowing. L1-L2: Disc bulge and tiny central disc protrusion. Bilateral facet arthropathy and trace facet joint effusion. No significant spinal canalor neural foraminal narrowing. L2-L3: Disc bulge with thickened ligamentum flavum and facet arthropathy. Trace facet joint effusion. Mild spinal canal stenosis. No significant neural foraminal narrowing. L3-L4: Disc bulge with thickened ligamentum flavum and facet arthropathy. Mild spinal canal stenosis. Mild right and no significant left neural foraminal narrowing. L4-L5: Disc bulge with thickened ligamentum flavum and facet arthropathy. Flattening of the ventral thecal sac. Mild neural foraminal narrowing. L5-S1: Disc bulge with marginal spur formation. Superimposed central disc protrusion. Bilateral facet arthropathy. Proliferation of epidural fat.No significant spinal canal stenosis. Mild neural foraminal narrowing. VISUALIZED UPPER ABDOMEN: Partially imaged hiatal hernia/intrathoracic stomach. Right renal rounded T2 hyperintense signal is incompletely characterized on this MRI and could reflect a cyst. OTHER: The lumbosacral posterior paraspinal soft tissue STIR hyperintense signal is nonspecific and could reflect a strain in the proper clinical scenario. IMPRESSION: 1. The L1 vertebral body height loss has worsened when compared to the previous lumbar spine CT dated 12/20/2024. Associated STIR hyperintense signal suggesting acute to subacute fracture with edema. 2. The T11 and T12 vertebral body deformities as noted on the previous lumbar spine CT. 3. Wrny-fi-ugvhjutf lumbar disc degeneration with thickened ligamentum flavum and facet arthropathy as described. Level by level details asabove. THIS IS AN ELECTRONICALLY VERIFIED FINAL REPORT 01/26/2025 3:57 PM - Electronically signed by Zeus DELGADO T: Report ID: [id number] Reading Location: [place] [address] Zane Jeffery MD [facility] MRI PROCEDURES Final Result * (ABNORMAL) eGFR (01/15/2025 9:08 AM CDT) eGFR 38(L) >=60 mL/min/1. 73 m2 Comment: Interpretive Data Reference Interval Normal >/= 90 mL/min/1.73m2 Mildly decreased* 60 - 89 mL/min/1.73m2 Mildly to moderately decreased 45 - 59 mL/min/1.73m2 Moderately to severely decreased 30 - 44 mL/min/1.73m2 Severely decreased 15 - 29 mL/min/1.73m2 Kidney Failure < 15 mL/min/1.73m2 *Relative to young adult level Estimated glomerular filtration rate is determined by the 2020 CKD-EPI equation recommended by the [employer] (A Unifying Approach to GFR Estimation: Recommendations of the NKF-ASK Task Force on Reassessing the Inclusion of Race in Diagnosing Kidney Disease, JASN 2020). The CKD-EPI equation should not be used for patients with unstable renal function and has not been validated in children and those over 70. Current interpretive data was last reviewed 2021. Testing performed by: [address] [address] Blood 01/15/2025 9:08 AM CDT 01/15/2025 9:09 AM CDT Eri Green DO LAB BLOOD ORDERABLES Final R esult GEETHA [address] [facility] [place] [address] * (ABNORMAL) Comprehensive metabolic panel (01/15/2025 9:08 AM CDT) Sodium 141 135 - 145 mmol/L Comment:Testing performed by : [address] [address] Potassium, pl 4.6 3.3 - 4.9 mmol/L GEETHA Comment:Testing performed by : [address] [address] Chloride 104 97 - 110 mmol/L GEETHA Comment:Testing performed by : [address] [address] CO2 25 22 - 32 mmol/L GEETHA Comment:Testing performed by : [address] [address] Anion gap 12 2 - 15 mmol/L GEETHA Comment:Testing performed by : [address] [address] BUN 33(H) 6 - 25 mg/dL GEETHA Comment:Testing performed by : [address] [address] Creatinine 1.40(H) 0.60 - 1.10 mg/dL GEETHA Comment:Testing performed by : [address] [address] Glucose 137 70 - 199 mg/dL GEETHA Comment: Interpretive Data Fasting glucose >/= 126 mg/dl is diagnostic for diabetes. Fasting is defined as no caloric intake for at least 8 hours. Fasting glucose between 100 mg/dl to 125 mg/dl is diagnostic of prediabetes. In a patient with classic symptoms of hyperglycemia or hyperglycemic crisis, a random glucose >/= 200 mg/dl is diagnostic for diabetes. In the absence of unequivocal hyperglycemia, results should be confirmed by repeat testing. The classification and Diagnosis of Diabetes Diabetes Care 202; 46: S19-S40. Current interpretive data was last revised 2022. Testing performed by: [address] [address] Calcium 9.2 8.5 - 10.3 mg/dL GEETHA Comment:Testing performed by : [address] [address] Bilirubin, total 0.3 0.1 - 1.2 mg/dL GEETHA Comment:Testing performed by : [address] [address] Protein, pl 6.7 6.5 - 8.5 g/dL GEETHA Comment:Testing performed by : [address] [address] Albumin 4.0 3.5 - 5.0 g/dL GEETHA Comment:Testing performed by : [address] [address] Alk phos 82 40 - 130 Units/L GEETHA Comment:Testing performed by : [address] [address] ALT 22 7 - 45 Units/L GEETHA Comment:Testing performed by : [address] [address] AST 23 10 - 45 Units/L GEETHA Comment:Testing performed by : [address] [address] Blood 01/15/2025 9:08 AM CDT 01/15/2025 9:09 AM CDT us Eri Green DO LAB BLOOD ORDERABLES Final R esult GEETHA [address] [facility] Department [place] [address] * Imaging Lumbar/Sacral Selective Nerve Root INJ (TFE) Bilateral ([id number]) (01/08/2025 10:58 AM CDT) Narrative CLAUS_FELTON_CASSIDYE - 01/08/2025 3:57 PM CDT The images from this study are not interpreted by Radiology. Please refer to the physician's procedure / OR operative note. Zane Jeffery MD [facility] PA[facility] MGMT PROCEDURES Final R esult Performing Organization Address [facility] de Phone Number [email or web address] * Imaging Lumbar/Sacral Selective Nerve Root INJ (TFE) Bilateral (43138) (12/25/2024 3:20 PM GAS METER INSTALLER) Narrative CLAUS_CASSIDYB_CASSIDYE - 12/25/2024 4:03 PM GAS METER INSTALLER The images from this study are not interpreted by Radiology. Please refer to the physician's procedure / OR operative note. Zane Jeffery MD [facility] PA[facility] MGMT PROCEDURES Final R formerly [facility] Performing Organization Address [facility] de Phone Number [email or web address] * CT Lumbar Spine W WO Contrast (12/20/2024 2:45 PM GAS METER INSTALLER) Anatomical Region Laterality Modality Spine N/A Computed Tomogra phy 12/21/2024 8:49 PM GAS METER INSTALLER Narrative 12/21/2024 9:02 PM GAS METER INSTALLER EXAM DESCRIPTION: CT LUMBAR SPINE W WO CONTRAST REASON FOR STUDY: Low back pain, increased fracture risk, h/o breast CA, new onset lower back pain; h/o compression fracture in the thoracic spine Low back pain, increased fracture risk, h/o breast CA, new onset lower back pain; h/o compression fracture in the thoracic spine, 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 Reconstructed coronal and sagittal MPR images reviewed. All images stored on PACS. Automated exposure control was used as a dose optimization technique for this examination. CONTRAST TYPE/DOSE: 100mL of IOVERSOL 350 MG IODINE/ML INTRAVENOUS SYRINGE injected via intravenous COMPARISON: CT chest abdomen and pelvis dated 12/11/2024, lumbar spine CT dated 12/04/2022. FINDINGS: SEGMENTATION: 5 iaq-hfx-hnvfcbm lumbar type vertebral bodies. ALIGNMENT: Focal kyphosis at T11-T12 is redemonstrated. VERTEBRAE: The osseous structures are diffusely demineralized and limits the evaluation for a subtle nondisplaced fracture. The T11 vertebral body severe compression deformity with retropulsed posterior fragment is again seen. The T12 vertebral body severe compression deformity status post augmentation procedure and retropulsed posterior fragment is again seen. Subtle questionable L1 superior endplate depression. Few scattered Schmorl's node. Multilevel endplate degenerative changes and marginal spur formation favoring L5-S1. DISC HEIGHT: Multilevel mild intervertebral disc height loss. HARDWARE: None in the spine. INDIVIDUAL DISC LEVELS: Suboptimally assessed by non myelographic CT technique. T10-T11: Disc bulge retropulsed posterior fragment of T11 fracture with mild osseous spinal canal stenosis. No significant osseous neural foraminal narrowing. T12-L1: Disc bulge with retropulsed posterior fragment of T12 fracture. Bilateral facet arthropathy. Mild osseous spinal canal stenosis. No significant osseous neural foraminal narrowing. L1-L2: Disc bulge with facet arthropathy. No significant osseous spinal canal or neural foraminal narrowing. L2-L3: Disc bulge with marginal spur formation. Thickened ligamentum flavum and facet arthropathy. Proliferation of dorsal epidural fat. Mild osseous spinal canal stenosis. Lateral recess effacement on both sides. Mild osseous neural foraminal narrowing. L3-L4: Disc bulge with marginal spur formation. Thickened ligamentum flavum and facet arthropathy. Hnep-qg-idaszmxn osseous spinal canal stenosis. No significant osseous neural foraminal narrowing. L4-L5: Disc bulge with marginal spur formation. Thickened ligamentum flavum and facet arthropathy. Mild osseous spinal canal stenosis stenosis. Mild left and no significant right osseous neural foraminal narrowing. L5-S1: Disc bulge with marginal spur formation. Superimposed central disc protrusion/calcification. Thickened ligamentum flavum and facet arthropathy. Proliferation of epidural fat. No significant osseous spinal canal stenosis. Portion of the disc/marginal spur approaching the descending S1 nerve roots. Mild to moderate inferior osseous neural foraminal narrowing. SOFT TISSUES: Calcified plaque in the abdominal aorta and imaged major branch vessels. Partially imaged small amount of free fluid in the pelvis. Partially imaged moderate to large hiatal hernia/intrathoracic stomach. Small left-sided pleural effusion. Nodular opacity in the lung bases. IMPRESSION: 1. The T11 vertebral body severe compression fracture with mild retropulsion of the posterior fragment as seen on the CT chest abdomen and pelvis dated 12/11/2024. 2. The T12 vertebral body severe compression deformity status post augmentation procedure with retropulsed posterior fragment as seen on the CT chest abdomen and pelvis dated 12/11/2014. 3. Question subtle L1 superior endplate depression. Please correlate with point tenderness. 4. Wsid-bi-sjsipfdl lumbar degenerative changes. The osseous spinal canal stenosis is most noticeable at L3-L4 and L4-L5. 5. With a history of breast cancer the need for further evaluation with contrast-enhanced MRI as clinically indicated. THIS IS AN ELECTRONICALLY VERIFIED FINAL REPORT 12/21/2024 9:02 PM - Electronically signed by Zeus Jerez D.O. 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 Reconstructed coronal and sagittal MPR imagesreviewed. All images stored on PACS. Automated exposure control was used as a dose optimization technique for this examination. CONTRAST TYPE/DOSE: 100mL of IOVERSOL 350 MG IODINE/ML INTRAVENOUSSYRINGE injected via intravenous COMPARISON: CT chest abdomen and pelvis dated 12/11/2024, lumbar spineCT dated 12/04/2022. FINDINGS: SEGMENTATION: 5 mgv-zuo-bfcyhpx lumbar type vertebral bodies. ALIGNMENT: Focal kyphosis at T11-T12 is redemonstrated. VERTEBRAE: The osseous structures are diffusely demineralized and limitsthe evaluation for a subtle nondisplaced fracture. The T11 vertebral bodysevere compression deformity with retropulsed posterior fragment is again seen.The T12 vertebral body severe compression deformity status post augmentation procedure and retropulsed posterior fragment is again seen. Subtle questionable L1 superior endplate depression. Few scattered Schmorl'snode. Multilevel endplate degenerative changes and marginal spur formationfavoring L5-S1. DISC HEIGHT: Multilevel mild intervertebral disc height loss. HARDWARE: None in the spine. INDIVIDUAL DISC LEVELS: Suboptimally assessed by non myelographic CT technique. T10-T11: Disc bulge retropulsed posterior fragment of T11 fracture withmild osseous spinal canal stenosis. No significant osseous neural foraminal narrowing. T12-L1: Disc bulge with retropulsed posterior fragment of T12 fracture. Bilateral facet arthropathy. Mild osseous spinal canal stenosis. No significant osseous neural foraminal narrowing. L1-L2: Disc bulge with facet arthropathy. No significant osseous spinalcanal or neural foraminal narrowing. L2-L3: Disc bulge with marginal spur formation. Thickened ligamentumflavum and facet arthropathy. Proliferation of dorsal epidural fat. Mildosseous spinal canal stenosis. Lateral recess effacement on both sides. Mildosseous neural foraminal narrowing. L3-L4: Disc bulge with marginal spur formation. Thickened ligamentumflavum and facet arthropathy. Yjfd-nu-aulhufkc osseous spinal canal stenosis.No significant osseous neural foraminal narrowing. L4-L5: Disc bulge with marginal spur formation. Thickened ligamentumflavum and facet arthropathy. Mild osseous spinal canal stenosis stenosis. Mild left and no significant right osseous neural foraminal narrowing. L5-S1: Disc bulge with marginal spur formation. Superimposed central disc protrusion/calcification. Thickened ligamentum flavum and facetarthropathy. Proliferation of epidural fat. No significant osseous spinal canalstenosis. Portion of the disc/marginal spur approaching the descending S1 nerveroots. Mild to moderate inferior osseous neural foraminal narrowing. SOFT TISSUES: Calcified plaque in the abdominal aorta and imaged major branch vessels. Partially imaged small amount of free fluid in thepelvis. Partially imaged moderate to large hiatal hernia/intrathoracic stomach.Small left-sided pleural effusion. Nodular opacity in the lung bases. IMPRESSION: 1. The T11 vertebral body severe compression fracture with mildretropulsion of the posterior fragment as seen on the CT chest abdomen and pelvis dated 12/11/2024. 2. The T12 vertebral body severe compression deformity status post augmentation procedure with retropulsed posterior fragment as seen on theCT chest abdomen and pelvis dated 12/11/2014. 3. Question subtle L1 superior endplate depression. Please correlatewith point tenderness. 4. Cvna-qa-wpfnhogd lumbar degenerative changes. The osseous spinalcanal stenosis is most noticeable at L3-L4 and L4-L5. 5. With a history of breast cancer the need for further evaluation with contrast-enhanced MRI as clinically indicated. THIS IS AN ELECTRONICALLY VERIFIED FINAL REPORT 12/21/2024 9:02 PM - Electronically signed by Zeus Jerez D.O. AP: AP Report ID: [id number] Reading Location: [place] [address] Tahmina Antoine NP IMG CT PROCEDURES Fi nal Result * (ABNORMAL) eGFR (12/18/2024 8:21 AM GAS METER INSTALLER) eGFR 35(L) >=60 mL/min/1. 73 m2 Comment: Interpretive Data Reference Interval Normal >/= 90 mL/min/1.73m2 Mildly decreased* 60 - 89 mL/min/1.73m2 Mildly to moderately decreased 45 - 59 mL/min/1.73m2 Moderately to severely decreased 30 - 44 mL/min/1.73m2 Severely decreased 15 - 29 mL/min/1.73m2 Kidney Failure < 15 mL/min/1.73m2 *Relative to young adult level Estimated glomerular filtration rate is determined by the 2020 CKD-EPI equation recommended by the [employer] Kid[employer] (A Unifying Approach to GFR Estimation: Recommendations of the NKF-ASK Task Force on Reassessing the Inclusion of Race in Diagnosing Kidney Disease, JASN 2020). The CKD-EPI equation should not be used for patients with unstable renal function and has not been validated in children and those over 70. Current interpretive data was last reviewed 2021. Testing performed by: [address] [address] Blood 12/18/2024 8:21 AM GAS METER INSTALLER 12/18/2024 8:25 AM GAS METER INSTALLER us Eri Green DO LAB BLOOD ORDERABLES Final R esult GEETHA [address] [facility] Department of Laboratories [place], [place] [id number] * Differential, auto (12/18/2024 8:21 AM GAS METER INSTALLER) Neutrophil abs 2.5 1.5 - 6.5 K/cumm Comment:Testing performed by : [address] [address] Imm gran abs 0.0 0.0 - 0.1 K/cumm GEETHA Comment:Testing performed by : [address] [address] Lymphocyte abs 1.0 0.8 - 3.3 K/cumm GEETHA Comment:Testing performed by : [address] [address] Monocyte abs 0.6 0.2 - 0.8 K/cumm GEETHA Comment:Testing performed by : [address] [address] Eosinophil abs 0.2 0.0 - 0.5 K/cumm GEETHA Comment:Testing performed by : [address] [address] Basophil abs 0.0 0.0 - 0.1 K/cumm GEETHA Comment:Testing performed by : [address] [address] Neutrophil pct 57.0 % GEETHA Comment: Interpretive Data Percent cell count reference ranges are not reported, since discordance with absolute values may lead to misinterpretation of CBC data. Current Interpretive Data was last revised on 2018. Testing performed by: [address] [address] Imm gran pct 0.5 % [facility] Comment: Interpretive Data Percent cell count reference ranges are not reported, since discordance with absolute values may lead to misinterpretation of CBC data. Current Interpretive Data was last revised on 2018. Testing performed by: [address] [address] Lymphocyte pct 23.5 % [facility] Comment: Interpretive Data Percent cell count reference ranges are not reported, since discordance with absolute values may lead to misinterpretation of CBC data. Current Interpretive Data was last revised on 2018. Testing performed by: [address] [address] Monocyte pct 13.1 % [facility] Comment: Interpretive Data Percent cell count reference ranges are not reported, since discordance with absolute values may lead to misinterpretation of CBC data. Current Interpretive Data was last revised on 2018. Testing performed by: [address] [address] Eosinophil pct 5.4 % [facility] Comment: Interpretive Data Percent cell count reference ranges are not reported, since discordance with absolute values may lead to misinterpretation of CBC data. Current Interpretive Data was last revised on 2018. Testing performed by: [address] [address] Basophil pct 0.5 % [facility] Comment: Interpretive Data Percent cell count reference ranges are not reported, since discordance with absolute values may lead to misinterpretation of CBC data. Current Interpretive Data was last revised on 2018. Testing performed by: [address] [address] Blood 12/18/2024 8:21 AM GAS METER INSTALLER 12/18/2024 8:25 AM GAS METER INSTALLER us Eri Green DO LAB BLOOD ORDERABLES Final R esult GEETHA [address] [facility] [place] [address] * (ABNORMAL) CBC with auto differential (12/18/2024 8:21 AM GAS METER INSTALLER) [facility] WBC 4.3 3.8 - 9.9 K/cumm Comment:Testing performed by : [address] [address] Hgb 8.2(L) 11.9 - 15.5 g/dL GEETHA Comment:Testing performed by : [address], [address] Hct 25.5(L) 35.6 - 45.5 % GEETHA Comment:Testing performed by : [address] [address] Plt 152 150 - 400 K/cumm GEETHA Comment:Testing performed by : [address], [address] MPV 10.1 9.1 - 12.3 fL GEETHA Comment:Testing performed by : [address], [address] RBC 3.11(L) 3.90 - 5.20 M/cumm GEETHA Comment:Testing performed by : [address] [address] MCV 82.0 81.3 - 96.4 fL GEETHA Comment:Testing performed by : [address] [address] MCH 26.4(L) 27.1 - 33.3 pg GEETHA Comment:Testing performed by : [address], [address] MCHC 32.2(L) 32.3 - 35.7 g/dL GEETHA Comment:Testing performed by : [address], [address] RDW CV 13.2 11.1 - 14.9 % GEETHA BENJAMIN Comment:Testing performed by : [address], [address] RDW SD 39.8 35.7 - 48.1 fL GEETHA Comment:Testing performed by : [address] [address] NRBC abs 0.00 0.00 - 0.01 K/cumm GEETHA Comment:Testing performed by : [address] [address] Blood 12/18/2024 8:21 AM GAS METER INSTALLER 12/18/2024 8:25 AM GAS METER INSTALLER Eri Green DO LAB BLOOD ORDERABLES Final R esult GEETHA [address] [facility] Department of Laboratories [place], [place] [id number] * (ABNORMAL) Comprehensive metabolic panel (12/18/2024 8:21 AM GAS METER INSTALLER) Sodium 140 135 - 145 mmol/L Comment:Testing performed by : [address] [address] Potassium, pl 3.9 3.3 - 4.9 mmol/L GEETHA Comment:Testing performed by : [address] [address] Chloride 101 97 - 110 mmol/L GEETHA Comment:Testing performed by : [address] [address] CO2 23 22 - 32 mmol/L GEETHA Comment:Testing performed by : [address] [address] Anion gap 16(H) 2 - 15 mmol/L GEETHA Comment:Testing performed by : [address] [address] BUN 23 6 - 25 mg/dL GEETHA Comment:Testing performed by : [address] [address] Creatinine 1.50(H) 0.60 - 1.10 mg/dL GEETHA Comment:Testing performed by : [address] [address] Glucose 122 70 - 199 mg/dL GEETHA Comment: Interpretive Data Fasting glucose >/= 126 mg/dl is diagnostic for diabetes. Fasting is defined as no caloric intake for at least 8 hours. Fasting glucose between 100 mg/dl to 125 mg/dl is diagnostic of prediabetes. In a patient with classic symptoms of hyperglycemia or hyperglycemic crisis, a random glucose >/= 200 mg/dl is diagnostic for diabetes. In the absence of unequivocal hyperglycemia, results should be confirmed by repeat testing. The classification and Diagnosis of Diabetes Diabetes Care 2021; 46: S19-S40. Current interpretive data was last revised 2022. Testing performed by: [address] [address] Calcium 8.4(L) 8.5 - 10.3 mg/dL GEETHA Comment:Testing performed by : [address] [address] Bilirubin, total 0.4 0.1 - 1.2 mg/dL GEETHA Comment:Testing performed by : [address] [address] Protein, pl 7.0 6.5 - 8.5 g/dL GEETHA Comment:Testing performed by : [address] [address] Albumin 3.8 3.5 - 5.0 g/dL GEETHA Comment:Testing performed by : [address] [address] Alk phos 60 40 - 130 Units/L GEETHA Comment:Testing performed by : [address] [address] ALT 9 7 - 45 Units/L GEETHA Comment:Testing performed by : [address] [address] AST 25 10 - 45 Units/L GEETHA Comment:Testing performed by : [address] [address] Blood 12/18/2024 8:21 AM GAS METER INSTALLER 12/18/2024 8:25 AM GAS METER INSTALLER us Eri Green DO LAB BLOOD ORDERABLES Final R esult GEETHA [address] [facility] Department [place] [address] * CT Chest Abdomen Pelvis WO Contrast (12/11/2024 11:18 AM GAS METER INSTALLER) Anatomical Region Laterality Modality Body N/A Computed Tomogra phy 12/12/2024 12:0 6 PM GAS METER INSTALLER Narrative 12/12/2024 2:10 PM GAS METER INSTALLER EXAM DESCRIPTION: CT CHEST ABDOMEN PELVIS WO CONTRAST REASON FOR STUDY: restaging breast cancer 4 month f/u from PET CT for breast cancer. No complaints. Hx of lumpectomy, . TECHNIQUE: CT scan of the chest, abdomen, and pelvis performed without intravenous and without oral contrast using helical scanning technique. Reconstructed coronal and sagittal MPR images reviewed. All images stored on PACS. Automated exposure control was used as a dose optimization technique for this examination. COMPARISON: CT abdomen pelvis 11/27/2024; PET-CT 08/10/2024 ; CT chest 05/26/2024 FINDINGS: The sensitivity for detection of visceral lesions is diminished without the use of intravenous contrast. CHEST LUNGS: Again noted are large areas of osezi-sodtqbr-fcih-left scarring in the lung apices, appearing similar to the comparison exams. Additional areas of scarring in the lungs appear unchanged. There is an unchanged 3 mm solid nodule in the left lower lobe on image 70. There is an unchanged 4 mm solid nodule in the right lower lobe on image 34. A 3 mm solid nodule in the right lower lobe on image 65 is unchanged. There is an unchanged 5 mm solid nodule in the left lower lobe on image 73. PLEURA: No effusion. No pneumothorax. MEDIASTINUM/PORFIRIO: There is a large hiatal hernia. There is an incompletely imaged left supraclavicular lymph node measuring 10 mm in short axis (series 2, image 1). HEART: Heart size is normal with no pericardial effusion. CORONARY ARTERY CALCIFICATION: Severe VASCULATURE CHEST: No thoracic aortic aneurysm. AXILLA: Similar size and appearance of a 1.3 cm left axillary/left lateral chest wall nodule (series 2, image 49). An adjacent 8 mm nodule has slightly decreased in size, previously measuring 10 mm. A prominent 7 mm left axillary lymph node (series 2, image 54) is unchanged. An 11 mm left axillary lymph node (series 2, image 19) is grossly unchanged. There are multiple clips in the left axillary region. CHEST WALL: No masses. No subcutaneous air. HARDWARE/LINES/TUBES: Left-sided Port-A-Cath tip terminates at the superior aspect of the superior vena cava, unchanged. MUSCULOSKELETAL CHEST: There are no suspicious osseous lesions. Similar appearance of compression fractures at T7 and T11 with kyphoplasty changes at T12. There are old left-sided rib fractures. ABDOMEN/PELVIS LIVER: Normal size. No identified cystic or solid masses. No cysts. GALLBLADDER: No stones identified. No wall thickening or inflammatory changes. BILE DUCTS: No intrahepatic or extrahepatic ductal dilatation. SPLEEN: Normal size. No focal lesions. PANCREAS: No identified cystic or solid masses. No significant calcifications. No adjacent inflammation or peripancreatic fluid collections. Pancreatic duct not dilated. ADRENALS: Normal. KIDNEYS/URINARY TRACT: There is a cyst in the posterior aspect of the right kidney. Left kidney is unremarkable. No hydronephrosis or hydroureter. Urinary bladder is unremarkable. GI: Large hiatal hernia. No dilated or thick-walled loops of bowel appreciated. No definite sign of appendicitis. There is colonic diverticulosis without evidence of diverticulitis. PERITONEUM: No ascites or free air. RETROPERITONEUM: No mass or adenopathy. REPRODUCTIVE: No significant abnormality. VASCULATURE ABDOMEN: Large amount of calcified atherosclerotic plaque throughout the aortoiliac system and mesenteric vessels without aneurysm. MUSCULOSKELETAL ABDOMEN PELVIS: There are no suspicious osseous lesions. There are degenerative changes of the lumbar spine. OTHER: No significant abnormality. IMPRESSION: Multiple prominent and mildly enlarged left axillary lymph nodes are either unchanged in size or slightly decreased in size. A previously described hypermetabolic left supraclavicular lymph node is not completely included in the field of view but measures up to 10 mm in the visualized sections, appearing unchanged. Unchanged small pulmonary nodules. No evidence of metastatic disease in the abdomen or pelvis. Large hiatal hernia. Colonic diverticulosis without evidence of diverticulitis. THIS IS AN ELECTRONICALLY VERIFIED FINAL REPORT 12/12/2024 2:10 PM - Electronically signed by Miguelangel Lucero M.D. AM: AM Report ID: [id number] Reading Location: [id number] Procedure Note Miguelangel Lucero MD - 12/12/2024 EXAM DESCRIPTION: CT CHEST ABDOMEN PELVIS WO CONTRAST REASON FOR STUDY: restaging breast cancer 4 month f/u from PET CT for breast cancer. No complaints. Hx oflumpectomy, . TECHNIQUE: CT scan of the chest, abdomen, and pelvis performed without intravenous and without oral contrast using helical scanning technique. Reconstructed coronal and sagittal MPR images reviewed. All images storedon PACS. Automated exposure control was used as a dose optimizationtechnique for this examination. COMPARISON: CT abdomen pelvis 11/27/2024; PET-CT 08/10/2024 ; CT chest 05/26/2024 FINDINGS: The sensitivity for detection of visceral lesions is diminished without the use of intravenous contrast. CHEST LUNGS: Again noted are large areas of fgold-[id number]-[id number]-left scarringin the lung apices, appearing similar to the comparison exams. Additionalareas of scarring in the lungs appear unchanged. There is an unchanged 3 mmsolid nodule in the left lower lobe on image 70. There is an unchanged 4 mmsolid nodule in the right lower lobe on image 34. A 3 mm solid nodule in theright lower lobe on image 65 is unchanged. There is an unchanged 5 mm solidnodule in the left lower lobe on image 73. PLEURA: No effusion. No pneumothorax. MEDIASTINUM/PORFIRIO: There is a large hiatal hernia. There is anincompletely imaged left supraclavicular lymph node measuring 10 mm in short axis(series 2, image 1). HEART: Heart size is normal with no pericardial effusion. CORONARY ARTERY CALCIFICATION: Severe VASCULATURE CHEST: No thoracic aortic aneurysm. AXILLA: Similar size and appearance of a 1.3 cm left axillary/leftlateral chest wall nodule (series 2, image 49). An adjacent 8 mm nodule hasslightly decreased in size, previously measuring 10 mm. A prominent 7 mm leftaxillary lymph node (series 2, image 54) is unchanged. An 11 mm left axillarylymph node (series 2, image 19) is grossly unchanged. There are multiple clipsin the left axillary region. CHEST WALL: No masses. No subcutaneous air. HARDWARE/LINES/TUBES: Left-sided Port-A-Cath tip terminates at thesuperior aspect of the superior vena cava, unchanged. MUSCULOSKELETAL CHEST: There are no suspicious osseous lesions. Similar appearance of compression fractures at T7 and T11 with kyphoplasty changesat T12. There are old left-sided rib fractures. ABDOMEN/PELVIS LIVER: Normal size. No identified cystic or solid masses. No cysts. GALLBLADDER: No stones identified. No wall thickening or inflammatory changes. BILE DUCTS: No intrahepatic or extrahepatic ductal dilatation. SPLEEN: Normal size. No focal lesions. PANCREAS: No identified cystic or solid masses. No significant calcifications. No adjacent inflammation or peripancreatic fluidcollections. Pancreatic duct not dilated. ADRENALS: Normal. KIDNEYS/URINARY TRACT: There is a cyst in the posterior aspect of theright kidney. Left kidney is unremarkable. No hydronephrosis or hydroureter. Urinary bladder is unremarkable. GI: Large hiatal hernia. No dilated or thick-walled loops of bowel appreciated. No definite sign of appendicitis. There is colonic diverticulosis without evidence of diverticulitis. PERITONEUM: No ascites or free air. RETROPERITONEUM: No mass or adenopathy. REPRODUCTIVE: No significant abnormality. VASCULATURE ABDOMEN: Large amount of calcified atherosclerotic plaque throughout the aortoiliac system and mesenteric vessels without aneurysm. MUSCULOSKELETAL ABDOMEN PELVIS: There are no suspicious osseous lesions. There are degenerative changes of the lumbar spine. OTHER: No significant abnormality. IMPRESSION: Multiple prominent and mildly enlarged left axillary lymphnodes are either unchanged in size or slightly decreased in size. A previously described hypermetabolic left supraclavicular lymph node is not completely included in the field of view but measures up to 10 mm in the visualized sections, appearing unchanged. Unchanged small pulmonary nodules. No evidence of metastatic disease in the abdomen or pelvis. Large hiatal hernia. Colonic diverticulosis without evidence of diverticulitis. THIS IS AN ELECTRONICALLY VERIFIED FINAL REPORT 12/12/2024 2:10 PM - Electronically signed by Miguelangel Lucero M.D. AM: AM Report ID: [id number] Reading Location: [id number] Eri Green DO IMG CT PROCEDURES Final Resu lt * TRANSTHORACIC ECHO (TTE) COMPLETE W DOPPLER/CF WO CONTRAST (12/06/2024 1:15 PM GAS METER INSTALLER) LV EF % CONS SCIMAGE Anatomical Region Laterality Modality Ultrasound 12/06/2024 12:5 1 PM GAS METER INSTALLER Narrative 12/06/2024 1:54 PM GAS METER INSTALLER [facility] Cardiology [address], [place] [address] [address], [place] [address] P:[phone] P:[phone] Echocardiographic Report Patient Name: EUSEBIA BURGOS C : 1945 Study Date: 12/06/2024 12:51:59 PM Gender: F Tech: Location: [facility] Provider: SHASHI JEREZ Height(Cm): 150 BSA: 1.43 Weight(Kg): 49.4 Heart Rate: 90 BP: 113 / 66 Quality: Good Order Provider: SHASHI JEREZ PROCEDURES: Echocardiographic Report: Transthoracic echocardiogram with complete 2D, M-Mode, and color Doppler examination. With Strain Analysis. INDICATIONS: I42.9 Cardiomyopathy, unspecified. MEASUREMENTS: 2D/MM Value Range Doppler Value Range EF Mod BP 60 % [ 54 - 74 ] AV Mean PG 6 mmHg EF Teich MM 62 % [ 54 - 74 ] AV Peak Lorenzo 1.78 m/s [ 1.00 - 1.70 ] LVIDd 2D 4.15 cm [ 3.80 - 5.20 ] AV Peak PG 13 mmHg LVIDd MM 5.16 cm [ 3.80 - 5.20 ] AV VTI 35.99 cm LVIDs 2D 3.06 cm [ 2.20 - 3.50 ] LVOT Peak Lorenzo 1.05 m/s [ 0.70 - 1.10 ] LVIDs MM 3.43 cm [ 2.20 - 3.50 ] LVOT VTI 23.77 cm LVPWd 2D 0.80 cm [ 0.60 - 0.90 ] MV E Peak Lorenzo 1.01 m/s [ 0.60 - 1.30 ] LVPWd MM 0.84 cm [ 0.60 - 0.90 ] MV A Peak Lorenzo 1.12 m/s [ 1.00 - 1.20 ] IVSd 2D 1.20 cm [ 0.60 - 0.90 ] MV Decel Time 129 msec [ 104 - 258 ] IVSd MM 0.81 cm [ 0.60 - 0.90 ] PV Peak Lorenzo 1.05 m/s [ 0.40 - 0.80 ] LA Dimension MM 4.12 cm [ 2.70 - 3.80 ] TR Peak Lorenzo 4.12 m/s [ 1.00 - 2.80 ] AoR Diam MM 3.06 cm [ 2.70 - 3.70 ] TR Peak PG 68 mmHg LA Volume Index 46 cc/m2 [ 16 - 34 ] RVSP 76.00 mmHg [ 10.00 - 36.00 ] Lateral E` 0.10 m/s [ 0.10 - 0.15 ] E` 0.08 m/s E/E` 10 2D/MM Value Range Doppler Value Range - FINDINGS: Interpretation Site: Exam was interpreted at [facility]. Left Ventricle: Normal left ventricular size. Mild concentric left ventricular hypertrophy. Normal global left ventricular systolic function. Normal left ventricular diastolic function. Ejection fraction is measured at 60 %. Global Longitudinal Strain is -19 %. Right Ventricle: Normal right ventricular size. Normal right ventricular systolic function. Left Atrium: There is mild enlargement of left atrium. Right Atrium: The right atrium is normal in size. Atrial Septum: Normal atrial septum. Mitral Valve: Mild mitral annular calcification. Mild mitral valve regurgitation. Aortic Valve: Mild aortic stenosis. Peak Velocity of 1.80 m/s. Mean gradient of 6.0 mmHg. Aortic cusps appear mildly sclerotic. Trace aortic valve regurgitation. Tricuspid Valve: Normal appearance of the tricuspid valve. Severe pulmonary hypertension based on right ventricular systolic pressure. Estimated peak RVSP is 76 mmHg. Mild to moderate tricuspid regurgitation. Pulmonic Valve: Normal appearance of the pulmonic valve. Mild pulmonic regurgitation. Pericardium: Normal pericardium with no significant pericardial effusion. Aorta: Mild aortic root calcification. IVC: Normal size and normal respiratory collapse consistent with normal right atrial pressure (<5 mmHg). CONCLUSIONS: Normal left ventricular size. Mild left ventricular hypertrophy. Normal LV systolic and diastolic function. Ejection fraction is measured at 60 %. Global Longitudinal Strain is -19 %. Normal RV size and systolic function. Mild left atrial enlargement. Mild mitral annular calcification. Mild mitral valve regurgitation. Mild aortic valve sclerosis. Mild aortic stenosis. V max 1.80 m/s. MG 6 mmHg. Trace aortic valve regurgitation. Severe pulmonary hypertension, RVSP 76 mmHg. Mild to moderate tricuspid regurgitation. Mild pulmonic regurgitation. Electronically Signed By: Ricky Castro MD, [facility] 12/06/2024 1:54:06 PM GAS METER INSTALLER Procedure Note Ricky Castro MD - 12/06/2024 [facility] Cardiology [address] [facility] [address], [place] [address] [address] [facility] [id number], [place] [address] P:[phone] P:[phone] Echocardiographic Report Patient Name: EUSEBIA BURGOS C : 1945 Study Date: 12/06/2024 12:51:59 PM Gender: F Tech: Location: [facility] Provider: SHASHI JEREZ Height(Cm): 150 BSA: 1.43 Weight(Kg): 49.4 Heart Rate: 90 BP: 113 / 66 Quality: Good Order Provider: SHASHI JEREZ PROCEDURES: Echocardiographic Report: Transthoracic echocardiogram with complete 2D, M-Mode, and color Dopplerexamination. With Strain Analysis. INDICATIONS: I42.9 Cardiomyopathy, unspecified. MEASUREMENTS: 2D/MM Value Range Doppler ValueRange EF Mod BP 60 % [ 54 - 74 ] AV Mean PG 6mmHg EF Teich MM 62 % [ 54 - 74 ] AV Peak Lorenzo 1.78m/s [ 1.00 - 1.70 ] LVIDd 2D 4.15 cm [ 3.80 - 5.20 ] AV Peak PG 13mmHg LVIDd MM 5.16 cm [ 3.80 - 5.20 ] AV VTI 35.99cm LVIDs 2D 3.06 cm [ 2.20 - 3.50 ] LVOT Peak Lorenzo 1.05m/s [ 0.70 - 1.10 ] LVIDs MM 3.43 cm [ 2.20 - 3.50 ] LVOT VTI 23.77cm LVPWd 2D 0.80 cm [ 0.60 - 0.90 ] MV E Peak Lorenzo 1.01m/s [ 0.60 - 1.30 ] LVPWd MM 0.84 cm [ 0.60 - 0.90 ] MV A Peak Lorenzo 1.12m/s [ 1.00 - 1.20 ] IVSd 2D 1.20 cm [ 0.60 - 0.90 ] MV Decel Time 129msec [ 104 - 258 ] IVSd MM 0.81 cm [ 0.60 - 0.90 ] PV Peak Lorenzo 1.05m/s [ 0.40 - 0.80 ] LA Dimension MM 4.12 cm [ 2.70 - 3.80 ] TR Peak Lorenzo 4.12m/s [ 1.00 - 2.80 ] AoR Diam MM 3.06 cm [ 2.70 - 3.70 ] TR Peak PG 68mmHg LA Volume Index 46 cc/m2 [ 16 - 34 ] RVSP 76.00mmHg [ 10.00 - 36.00 ] Lateral E` 0.10 m/s [ 0.10 - 0.15 ] E` 0.08 m/s E/E` 10 2D/MM Value Range Doppler ValueRange - FINDINGS: Interpretation Site: Exam was interpreted at [facility]. Left Ventricle: Normal left ventricular size. Mild concentric left ventricularhypertrophy. Normal global left ventricular systolic function. Normal left ventricular diastolicfunction. Ejection fraction is measured at 60 %. Global Longitudinal Strain is -19 %. Right Ventricle: Normal right ventricular size. Normal right ventricular systolicfunction. Left Atrium: There is mild enlargement of left atrium. Right Atrium: The right atrium is normal in size. Atrial Septum: Normal atrial septum. Mitral Valve: Mild mitral annular calcification. Mild mitral valve regurgitation. Aortic Valve: Mild aortic stenosis. Peak Velocity of 1.80 m/s. Mean gradient of 6.0mmHg. Aortic cusps appear mildly sclerotic. Trace aortic valve regurgitation. Tricuspid Valve: Normal appearance of the tricuspid valve. Severe pulmonary hypertensionbased on right ventricular systolic pressure. Estimated peak RVSP is 76 mmHg. Mild tomoderate tricuspid regurgitation. Pulmonic Valve: Normal appearance of the pulmonic valve. Mild pulmonic regurgitation. Pericardium: Normal pericardium with no significant pericardial effusion. Aorta: Mild aortic root calcification. IVC: Normal size and normal respiratory collapse consistent with normal rightatrial pressure (<5 mmHg). CONCLUSIONS: Normal left ventricular size. Mild left ventricular hypertrophy. Normal LVsystolic and diastolic function. Ejection fraction is measured at 60 %. GlobalLongitudinal Strain is -19 %. Normal RV size and systolic function. Mild left atrial enlargement. Mild mitral annular calcification. Mild mitral valve regurgitation. Mild aortic valve sclerosis. Mild aortic stenosis. V max 1.80 m/s. MG 6mmHg. Trace aortic valve regurgitation. Severe pulmonary hypertension, RVSP 76 mmHg. Mild to moderate tricuspidregurgitation. Mild pulmonic regurgitation. Electronically Signed By: Ricky Castro MD, [facility] 12/06/2024 1:54:06 PM GAS METER INSTALLER us Shashi Jerez MD CV ECHO PROCEDURES Andra l Result * (ABNORMAL) Sepsis Lactate w/ Reflex (11/27/2024 4:08 PM GAS METER INSTALLER) Sepsis Lactate 2.5(C) 0.7 - 2.0 mmol/L Comment: Critical Result called to and read back by Karlie [id number], DATE: 2024-11-27 16:59:37 BY: [id number] Testing performed by: [facility], [address] [place] [address]., [id number] Blood 11/27/2024 4:08 PM GAS METER INSTALLER 11/27/2024 4:11 PM GAS METER INSTALLER us Rose GÓMEZ LAB BLOOD ORDERABLES Final Re sult GEETHA MH [address] [facility] Department [place] [address] * CT Abdomen Pelvis WO Contrast (11/27/2024 3:08 PM GAS METER INSTALLER) Anatomical Region Laterality Modality Body N/A Computed Tomogra phy 11/27/2024 3:16 PM GAS METER INSTALLER Narrative 11/27/2024 3:30 PM GAS METER INSTALLER EXAM DESCRIPTION: CT ABDOMEN PELVIS WO CONTRAST REASON FOR STUDY: Abdominal infection suspected, Nausea/vomiting Abdominal abscess/infection suspected, Nausea/vomiting TECHNIQUE: CT scan of the abdomen and pelvis performed without intravenous and without oral contrast using helical scanning technique. Reconstructed coronal and sagittal MPR images reviewed. All images stored on PACS. Automated exposure control was used as a dose optimization technique for this examination. COMPARISON: CT chest abdomen pelvis 10/28/2023 FINDINGS: The sensitivity for detection of visceral lesions is diminished without the use of intravenous contrast. LOWER CHEST: No significant pulmonary abnormalities. No effusion. LIVER: Normal size. No identified cystic or solid masses. GALLBLADDER: Contracted, unremarkable BILE DUCTS: No intrahepatic or extrahepatic ductal dilatation. SPLEEN: Normal size. No focal lesions. PANCREAS: No identified cystic or solid masses. No significant calcifications. No adjacent inflammation or peripancreatic fluid collections. Pancreatic duct not dilated. ADRENALS: Normal. KIDNEYS/URINARY TRACT: Simple right renal cyst. No solid masses. No stones. No hydronephrosis or hydroureter. Urinary bladder is unremarkable. GI: Increased size large hiatal hernia. There is abnormal wall thickening of the small bowel with surrounding fat stranding, consistent with acute enteritis. No abnormal bowel dilatation. No significant diverticular disease. PERITONEUM: Small free-fluid in the abdomen and pelvis. No free air. RETROPERITONEUM: No mass or adenopathy. REPRODUCTIVE: No significant abnormality. VASCULATURE: Atherosclerotic disease in the aorta, aortic branches, and iliacs MUSCULOSKELETAL: Multilevel degenerative changes. Stable compression deformities at T11-T12. No concerning lesions are present. OTHER: No other abnormality. IMPRESSION: Acute enteritis. No abnormal bowel dilatation. Small free-fluid in the abdomen and pelvis. Increased size of large hiatal hernia THIS IS AN ELECTRONICALLY VERIFIED FINAL REPORT 11/27/2024 3:30 PM - Electronically signed by Amanda Yañez M.D. FT: FT Report ID: [id number] Reading Location: [id number] Procedure Note Amanda Cuadra MD - 11/27/2024 EXAM DESCRIPTION: CT ABDOMEN PELVIS WO CONTRAST REASON FOR STUDY: Abdominal infection suspected, Nausea/vomiting Abdominal abscess/infection suspected, Nausea/vomiting TECHNIQUE: CT scan of the abdomen and pelvis performed without intravenousand without oral contrast using helical scanning technique. Reconstructed coronal and sagittal MPR images reviewed. All images stored on PACS.Automated exposure control was used as a dose optimization technique for this examination. COMPARISON: CT chest abdomen pelvis 10/28/2023 FINDINGS: The sensitivity for detection of visceral lesions is diminished without the use of intravenous contrast. LOWER CHEST: No significant pulmonary abnormalities. No effusion. LIVER: Normal size. No identified cystic or solid masses. GALLBLADDER: Contracted, unremarkable BILE DUCTS: No intrahepatic or extrahepatic ductal dilatation. SPLEEN: Normal size. No focal lesions. PANCREAS: No identified cystic or solid masses. No significant calcifications. No adjacent inflammation or peripancreatic fluidcollections. Pancreatic duct not dilated. ADRENALS: Normal. KIDNEYS/URINARY TRACT: Simple right renal cyst. No solid masses. Nostones. No hydronephrosis or hydroureter. Urinary bladder is unremarkable. GI: Increased size large hiatal hernia. There is abnormal wallthickening of the small bowel with surrounding fat stranding, consistent with acute enteritis. No abnormal bowel dilatation. No significant diverticular disease. PERITONEUM: Small free-fluid in the abdomen and pelvis. No free air. RETROPERITONEUM: No mass or adenopathy. REPRODUCTIVE: No significant abnormality. VASCULATURE: Atherosclerotic disease in the aorta, aortic branches, and iliacs MUSCULOSKELETAL: Multilevel degenerative changes. Stable compression deformities at T11-T12. No concerning lesions are present. OTHER: No other abnormality. IMPRESSION: Acute enteritis. No abnormal bowel dilatation. Small free-fluid in the abdomen and pelvis. Increased size of large hiatal hernia THIS IS AN ELECTRONICALLY VERIFIED FINAL REPORT 11/27/2024 3:30 PM - Electronically signed by Amanda Yañez M.D. FT: FT Report ID: [id number] Reading Location: [id number] us Mark Gill MD IMG CT PROCEDURES Final Result * (ABNORMAL) Troponin T high-sensitivity 2-hour (11/27/2024 2:30 PM GAS METER INSTALLER) Trop T hs 17(H) <=14 ng/L Comment: Interpretive Data For further hscTnT resources including the diagnostic algorithm and an aid in interpretation, copy and paste this link: https://nrl.testcatalog.org/show/hsTrop Current Interpretive Data last revised 2020. Testing performed by: [facility], [address] [place] [address]., [id number] Trop T hs delta -1 ng/L GEETHA BENJAMIN Comment:Testing performed by : [facility], [address] [place] [address]., [id number] Trop T hs interp Insignificant GEETHA BENJAMIN Comment:Testing performed by : [facility], [address] [place] [address]., [id number] Blood 11/27/2024 2:30 PM GAS METER INSTALLER 11/27/2024 2:35 PM GAS METER INSTALLER us Mark Gill MD LAB BLOOD ORDERABLES Final Resul t GEETHA [address] [facility] Department [place] [address] * Stool culture Stool Rectum (11/27/2024 2:30 PM GAS METER INSTALLER) Direct Specimen Exam Shiga Toxin Testing: Antigen detection assay for Shiga-toxin NEGATIVE for Shiga Toxin 1 and Shiga Toxin 2. Comment:Testing performed by : [facility], [address] [place]., [address] Report Final Report: No growth of enteric bacterial pathogens GEETHA BENJAMIN Comment:Testing performed by : [facility], [address] [place]., [address] Stool (Rectum) 11/27/2024 2: 30 PM GAS METER INSTALLER 11/27/2024 7:36 PM GAS METER INSTALLER Narrative GEETHA - 12/01/2024 8:42 AM GAS METER INSTALLER Specimen received in a sterile container. Testing performed by [facility] ([phone]). Routine stool cultures include procedures to detect Salmonella, Shigella, Edwardsiella, Aeromonas, Pleisiomonas, Campylobacter, Yersinia, E. coli O157, and Shiga-like toxins. Vibrio is cultured only upon special request. If Vibrio is suspected, please call the laboratory at [phone]. Interpretive data was last updated March 01, 2017. us Mark Gill MD LAB MICROBIOLOGY - GENERAL ORDER AVA Final Result GEETHA [address] [facility] Department [place] [address] * ECG 12 lead (11/27/2024 12:51 PM GAS METER INSTALLER) Pathologist [facility] Ventricular Rate EKG/Min 79 BPM [facility] Atrial Rate 79 BPM [facility] ID-Interval (MSEC) 138 ms [facility] QRS-Interval (MSEC) 72 ms [facility] QT-Interval (MSEC) 386 ms [facility] QTc 442 ms [facility] P [place] 30 degrees [facility] R [place] -20 degrees [facility] T [place] 15 degrees [facility] Diagnosis Normal sinus rhythm Normal ECG When compared with ECG of 18-DEC-2022 17:22, T wave inversion no longer evident in Anterior leads Confirmed by ERI MARTINEZ M.D. ([id number]) on 11/28/2024 8:48:32 AM [facility] 11/27/2024 12:5 1 PM GAS METER INSTALLER 11/28/2024 8:48 AM GAS METER INSTALLER us Rose GÓMEZ ECG ORDERABLES Final Result Performing Organization Address City/[facility]/ZIP Co de Phone Number [facility] * Influenza A/B, RSV, and COVID-19 PCR Nasopharyngeal (11/27/2024 12:48 PM GAS METER INSTALLER) [facility] COVID-19 RNA Negative Negative Comment:Testing performed by : [address] [address] Influenza A RNA Negative Negative [facility] Comment:Testing performed by : [address] [address] Influenza B RNA Negative Negative [facility] Comment:Testing performed by : [address] [address] RSV RNA Negative Negative [facility] Comment: Interpretive data: Testing performed by [facility]. This test is performed using the [employer] Xpert Xpress CoV-2/Flu/RSV plus assay. This is a multiplex, real-time reverse transcriptase PCR assay intended for the qualitative detection of nucleic acid from SARS-CoV-2, influenza A, influenza B, and respiratory syncytial virus. This assay has been cleared by the [place] Food and Drug administration. The performance characteristics have been verified by the [facility]. Results must be considered in the clinical context, and a negative result does not rule out infection. Interpretive Data last revised 2023 Testing performed by: [address] [address] Nasopharyngeal 11/27/2024 12 :48 PM GAS METER INSTALLER 11/27/2024 12:56 PM GAS METER INSTALLER Narrative [facility] - 11/27/2024 1:41 PM GAS METER INSTALLER Is the Patient experiencing symptoms consistent with COVID?->Yes us Mark Gill MD LAB MICROBIOLOGY - GENERAL ORDER AVA Final Result [facility] [address] [facility] Department [place] [address] * (ABNORMAL) Sepsis Lactate w/ Reflex (11/27/2024 12:48 PM GAS METER INSTALLER) [facility] Sepsis Lactate 3.1(C) 0.7 - 2.0 mmol/L Comment: Critical Result called to and read back by Karlie [id number], DATE: 2024-11-27 13:42:20 BY: [id number] Testing performed by: [address] [place]., [address] Blood 11/27/2024 12:4 8 PM GAS METER INSTALLER 11/27/2024 12:57 PM GAS METER INSTALLER Mark Gill MD LAB BLOOD ORDERABLES Final Resul t Performing Organization Address [facility] Phone Number [id number] [place] [address] [address] * (ABNORMAL) Troponin T high-sensitivity series (baseline, 2hr, 4hr, 6hr) (11/27/2024 12:38 PM GAS METER INSTALLER) Trop T hs 18(H) <=14 ng/L Comment: Interpretive Data For further hscTnT resources including the diagnostic algorithm and an aid in interpretation, copy and paste this link: https://nrl.testcatalog.org/show/hsTrop Current Interpretive Data last revised 2020. Testing performed by: [facility], [address] [place] [address]., [address] Blood 11/27/2024 12:3 8 PM GAS METER INSTALLER 11/27/2024 12:56 PM GAS METER INSTALLER us Mark Gill MD LAB BLOOD ORDERABLES Final Resul t Performing Organization Address [facility] de Phone Number [address] [address] * (ABNORMAL) eGFR (11/27/2024 12:38 PM GAS METER INSTALLER) eGFR 27(L) >=60 mL/min/1. 73 m2 Comment: Interpretive Data Reference Interval Normal >/= 90 mL/min/1.73m2 Mildly decreased* 60 - 89 mL/min/1.73m2 Mildly to moderately decreased 45 - 59 mL/min/1.73m2 Moderately to severely decreased 30 - 44 mL/min/1.73m2 Severely decreased 15 - 29 mL/min/1.73m2 Kidney Failure < 15 mL/min/1.73m2 *Relative to young adult level Estimated glomerular filtration rate is determined by the 2020 CKD-EPI equation recommended by the National Kidney Foundation (A Unifying Approach to GFR Estimation: Recommendations of the NKF-ASK Task Force on Reassessing the Inclusion of Race in Diagnosing Kidney Disease, JASN 2020). The CKD-EPI equation should not be used for patients with unstable renal function and has not been validated in children and those over 70. Current interpretive data was last reviewed 2021. Testing performed by: [address] [address] Blood 11/27/2024 12:3 8 PM GAS METER INSTALLER 11/27/2024 12:56 PM GAS METER INSTALLER us Rose GÓMEZ LAB BLOOD ORDERABLES Final Re sult GEETHA [facility]1 [facility] Department [place] [address] * Differential, auto (11/27/2024 12:38 PM GAS METER INSTALLER) Neutrophil abs 5.8 1.5 - 6.5 K/cumm Comment:Testing performed by : [address] [address] Imm gran abs 0.1 0.0 - 0.1 K/cumm GEETHA Comment:Testing performed by : [address] [address] Lymphocyte abs 1.6 0.8 - 3.3 K/cumm GEETHA Comment:Testing performed by : [address] [address] Monocyte abs 0.3 0.2 - 0.8 K/cumm GEETHA Comment:Testing performed by : [address] [address] Eosinophil abs 0.0 0.0 - 0.5 K/cumm GEETHA Comment:Testing performed by : [address] [address] Basophil abs 0.0 0.0 - 0.1 K/cumm GEETHA Comment:Testing performed by : [address] [address] Neutrophil pct 74.3 % [facility] Comment: Interpretive Data Percent cell count reference ranges are not reported, since discordance with absolute values may lead to misinterpretation of CBC data. Current Interpretive Data was last revised on 2018. Testing performed by: [address] [address] Imm gran pct 0.8 % [facility] Comment: Interpretive Data Percent cell count reference ranges are not reported, since discordance with absolute values may lead to misinterpretation of CBC data. Current Interpretive Data was last revised on 2018. Testing performed by: [address] [address] Lymphocyte pct 19.9 % [facility] Comment: Interpretive Data Percent cell count reference ranges are not reported, since discordance with absolute values may lead to misinterpretation of CBC data. Current Interpretive Data was last revised on 2018. Testing performed by: [address] [address] Monocyte pct 4.0 % [facility] Comment: Interpretive Data Percent cell count reference ranges are not reported, since discordance with absolute values may lead to misinterpretation of CBC data. Current Interpretive Data was last revised on 2018. Testing performed by: [address] [address] Eosinophil pct 0.5 % [facility] Comment: Interpretive Data Percent cell count reference ranges are not reported, since discordance with absolute values may lead to misinterpretation of CBC data. Current Interpretive Data was last revised on 2018. Testing performed by: [address] [address] Basophil pct 0.5 % [facility] Comment: Interpretive Data Percent cell count reference ranges are not reported, since discordance with absolute values may lead to misinterpretation of CBC data. Current Interpretive Data was last revised on 2018. Testing performed by: [address] [address] Blood 11/27/2024 12:3 8 PM GAS METER INSTALLER 11/27/2024 12:56 PM GAS METER INSTALLER Rose GÓMEZ LAB BLOOD ORDERABLES Final [facility] [address] [facility] Department [place] [address] * (ABNORMAL) CBC with auto differential (11/27/2024 12:38 PM GAS METER INSTALLER) WBC 7.8 3.8 - 9.9 K/cumm Comment:Testing performed by : [address] [address] Hgb 13.1 11.9 - 15.5 g/dL GEETHA Comment:Testing performed by : [address] [address] Hct 40.8 35.6 - 45.5 % GEETHA Comment:Testing performed by : [address] [address] Plt 220 150 - 400 K/cumm GEETHA Comment:Testing performed by : [address] [address] MPV 11.1 9.1 - 12.3 fL GEETHA Comment:Testing performed by : [address], [address] RBC 4.72 3.90 - 5.20 M/cumm GEETHA Comment:Testing performed by : [address] [address] MCV 86.4 81.3 - 96.4 fL GEETHA Comment:Testing performed by : [address] [address] MCH 27.8 27.1 - 33.3 pg GEETHA Comment:Testing performed by : [address] [address] MCHC 32.1(L) 32.3 - 35.7 g/dL GEETHA Comment:Testing performed by : [address] [address] RDW CV 13.0 11.1 - 14.9 % GEETHA Comment:Testing performed by : [address] [address] RDW SD 40.8 35.7 - 48.1 fL GEETHA BENJAMIN Comment:Testing performed by : [address] [address] NRBC abs 0.00 0.00 - 0.01 K/cumm GEETHA BENJAMIN Comment:Testing performed by : [address] [address] Blood 11/27/2024 12:3 8 PM GAS METER INSTALLER 11/27/2024 12:56 PM GAS METER INSTALLER us Rose GÓMEZ LAB BLOOD ORDERABLES Final Re sult GEETHA [address] [facility] Department [place] [address] * (ABNORMAL) Comprehensive metabolic panel (11/27/2024 12:38 PM GAS METER INSTALLER) Sodium 139 135 - 145 mmol/L Comment:Testing performed by : [address] [address] Potassium, pl 4.6 3.3 - 4.9 mmol/L GEETHA Comment:Testing performed by : [address] [address] Chloride 105 97 - 110 mmol/L GEETHA Comment:Testing performed by : [address] [address] CO2 17(L) 22 - 32 mmol/L GEETHA Comment:Testing performed by : [address] [address] Anion gap 17(H) 2 - 15 mmol/L GEETHA Comment:Testing performed by : [address] [address] BUN 35(H) 6 - 25 mg/dL GEETHA Comment:Testing performed by : [address] [address] Creatinine 1.87(H) 0.60 - 1.10 mg/dL GEETHA Comment:Testing performed by : [address] [address] Glucose 239(H) 70 - 199 mg/dL GEETHA Comment: Interpretive Data Fasting glucose >/= 126 mg/dl is diagnostic for diabetes. Fasting is defined as no caloric intake for at least 8 hours. Fasting glucose between 100 mg/dl to 125 mg/dl is diagnostic of prediabetes. In a patient with classic symptoms of hyperglycemia or hyperglycemic crisis, a random glucose >/= 200 mg/dl is diagnostic for diabetes. In the absence of unequivocal hyperglycemia, results should be confirmed by repeat testing. The classification and Diagnosis of Diabetes Diabetes Care 2021; 46: S19-S40. Current interpretive data was last revised 2022. Testing performed by: [address] [address] Calcium 9.5 8.5 - 10.3 mg/dL GEETHA Comment:Testing performed by : [address] [address] Bilirubin, total 0.3 0.1 - 1.2 mg/dL GEETHA Comment:Testing performed by : [address] [address] Protein, pl 7.1 6.5 - 8.5 g/dL GEETHA Comment:Testing performed by : [address] [address] Albumin 3.8 3.5 - 5.0 g/dL GEETHA Comment:Testing performed by : [address] [address] Alk phos 56 40 - 130 Units/L GEETHA Comment:Testing performed by : [address] [address] ALT 16 7 - 45 Units/L GEETHA Comment:Testing performed by : [address] [address] AST 27 10 - 45 Units/L GEETHA Comment:Testing performed by : [address] [address] Blood 11/27/2024 12:3 8 PM GAS METER INSTALLER 11/27/2024 12:56 PM GAS METER INSTALLER Rose GÓMEZ LAB BLOOD ORDERABLES Final Re sult [facility] [address] [facility] Department [place] [address] * (ABNORMAL) eGFR (11/20/2024 11:16 AM GAS METER INSTALLER) Pathologist [facility] eGFR 38(L) >=60 mL/min/1. 73 m2 Comment: Interpretive Data Reference Interval Normal >/= 90 mL/min/1.73m2 Mildly decreased* 60 - 89 mL/min/1.73m2 Mildly to moderately decreased 45 - 59 mL/min/1.73m2 Moderately to severely decreased 30 - 44 mL/min/1.73m2 Severely decreased 15 - 29 mL/min/1.73m2 Kidney Failure < 15 mL/min/1.73m2 *Relative to young adult level Estimated glomerular filtration rate is determined by the 2020 CKD-EPI equation recommended by the National Kidney Foundation (A Unifying Approach to GFR Estimation: Recommendations of the NKF-ASK Task Force on Reassessing the Inclusion of Race in Diagnosing Kidney Disease, JASN 2020). The CKD-EPI equation should not be used for patients with unstable renal function and has not been validated in children and those over 70. Current interpretive data was last reviewed 2021. Testing performed by: [address] [address] Blood 11/20/2024 11:1 6 AM GAS METER INSTALLER 11/20/2024 11:21 AM GAS METER INSTALLER Eri Green DO LAB BLOOD ORDERABLES Final R esult Performing Organization Address [facility] Co de Phone Number [facility] [address] [facility] [place] [address] * Differential, auto (11/20/2024 11:16 AM GAS METER INSTALLER) Pathologist [facility] Neutrophil abs 1.7 1.5 - 6.5 K/cumm Comment:Testing performed by : [address] [address] Imm gran abs 0.0 0.0 - 0.1 K/cumm GEETHA Comment:Testing performed by : [address] [place]., [address] Lymphocyte abs 1.0 0.8 - 3.3 K/cumm CERNER Comment:Testing performed by : [address] [address] Monocyte abs 0.4 0.2 - 0.8 K/cumm CERNER Comment:Testing performed by : [address] [address] Eosinophil abs 0.2 0.0 - 0.5 K/cumm [facility] Comment:Testing performed by : [address] [address] Basophil abs 0.0 0.0 - 0.1 K/cumm [facility] Comment:Testing performed by : [address] [address] Neutrophil pct 49.1 % [facility] Comment: Interpretive Data Percent cell count reference ranges are not reported, since discordance with absolute values may lead to misinterpretation of CBC data. Current Interpretive Data was last revised on 2018. Testing performed by: [address] [address] Imm gran pct 0.3 % [facility] Comment: Interpretive Data Percent cell count reference ranges are not reported, since discordance with absolute values may lead to misinterpretation of CBC data. Current Interpretive Data was last revised on 2018. Testing performed by: [address] [address] Lymphocyte pct 30.2 % [facility] Comment: Interpretive Data Percent cell count reference ranges are not reported, since discordance with absolute values may lead to misinterpretation of CBC data. Current Interpretive Data was last revised on 2018. Testing performed by: [address] [address] Monocyte pct 12.5 % CERNER Comment: Interpretive Data Percent cell count reference ranges are not reported, since discordance with absolute values may lead to misinterpretation of CBC data. Current Interpretive Data was last revised on 2018. Testing performed by: [address] [address] Eosinophil pct 7.0 % CERNER Comment: Interpretive Data Percent cell count reference ranges are not reported, since discordance with absolute values may lead to misinterpretation of CBC data. Current Interpretive Data was last revised on 2018. Testing performed by: [facility], [address] [place] [address]., [address] Basophil pct 0.9 % GEETHA BENJAMIN Comment: Interpretive Data Percent cell count reference ranges are not reported, since discordance with absolute values may lead to misinterpretation of CBC data. Current Interpretive Data was last revised on 2018. Testing performed by: [facility], [address] [place] [address]., [address] Blood 11/20/2024 11:1 6 AM GAS METER INSTALLER 11/20/2024 11:21 AM GAS METER INSTALLER us Notinfile Unknown LAB BLOOD ORDERABLES Final Res ult GEETHA [address] [facility] Department [place] [address] * (ABNORMAL) Pro B-type natriuretic peptide (11/20/2024 11:16 AM GAS METER INSTALLER) NT-proBNP 2,448(H) <=450 pg/mL Comment: Interpretive Comments: A. Dyspnea in Acute Care Setting All Ages: < 300 pg/ml, acute heart failure unlikely. < 50 yrs: 300 - 450 pg/ml, further investigation warranted. > 450 pg/ml, acute heart failure likely. 50 - 74 yrs: 300 - 900 pg/ml, further investigation warranted. > 900 pg/ml, acute heart failure likely . > or = 75 yrs: 450 - 1800 pg/ml, further investigation warranted. > 1800 pg/ml, acute heart failure likely. B. Non-acute Setting < 75 yrs < 125 pg/ml, rules out heart failure. > or = 125 pg/ml, further investigation warranted. > or = 75 yrs < 450 pg/ml, rules out heart failure. > or = 450 pg/ml, further investigation warranted. - Knowledge of each individual patient's NT-proBNP range may be more useful than using similar cut-points for every patient. Please note that marked elevations in NT-proBNP levels may be observed in state other than Left Ventricular Congestive Failure, including: acute coronary syndromes, right heart strain/failure (including pulmonary embolism and cor pulmonale), critical illness, renal failure, as well as advanced age. - References: 1. José Miguel PECK et.al. Eur Heart J. 2006:27:330-337. 2. Octavio MERAZ, Billy ABRAMS. J. AM Eugenia Cardiol: Cardiovasc Imag. 2009;2: 216- 225. Interpretive Data Last Revised Date: 2018. Testing performed by: [address] [address] Blood 11/20/2024 11:1 6 AM GAS METER INSTALLER 11/20/2024 1:44 PM GAS METER INSTALLER us Notinfile Unknown LAB BLOOD ORDERABLES Final Res ult Performing Organization Address [facility] Co de Phone Number GEETHA [address] [place] [address] * Iron profile w/ IBC (11/20/2024 11:16 AM GAS METER INSTALLER) Iron 78 35 - 145 mcg/dL Comment:Testing performed by : [address] [address] TIBC 288 250 - 400 mcg/dL GEETHA Comment:Testing performed by : [address] [address] Transferrin saturation 27 20 - 50 % GEETHA Comment:Testing performed by : [address] [address] Blood 11/20/2024 11:1 6 AM GAS METER INSTALLER 11/20/2024 1:44 PM GAS METER INSTALLER us Notinfile Unknown LAB BLOOD ORDERABLES Final Res ult Performing Organization Address City/[facility]/ZIP Co de Phone Number JORDAN[address] [place] [address] * (ABNORMAL) CBC with auto differential (11/20/2024 11:16 AM GAS METER INSTALLER) WBC 3.4(L) 3.8 - 9.9 K/cumm Comment:Testing performed by : [address], [address] Hgb 8.7(L) 11.9 - 15.5 g/dL CERTHOMAS Comment:Testing performed by : [address] [address] Hct 26.7(L) 35.6 - 45.5 % CERTHOMAS Comment:Testing performed by : [address] [address] Plt 102(L) 150 - 400 K/cumm CERTHOMAS Comment:Testing performed by : [address], [address] MPV 10.3 9.1 - 12.3 fL CERTHOMAS Comment:Testing performed by : [address], [address] RBC 3.10(L) 3.90 - 5.20 M/cumm GEETHA Comment:Testing performed by : [address], [address] MCV 86.1 81.3 - 96.4 fL CERNER Comment:Testing performed by : [address], [address] MCH 28.1 27.1 - 33.3 pg CERTHOMAS Comment:Testing performed by : [address], [address] MCHC 32.6 32.3 - 35.7 g/dL CERTHOMAS Comment:Testing performed by : [address], [address] RDW CV 12.9 11.1 - 14.9 % CERTHOMAS Comment:Testing performed by : [address], [address] RDW SD 40.3 35.7 - 48.1 fL CERTHOMAS Comment:Testing performed by : [address] [address] NRBC abs 0.00 0.00 - 0.01 K/cumm GEETHA Comment:Testing performed by : [address], [address] Blood 11/20/2024 11:1 6 AM GAS METER INSTALLER 11/20/2024 11:21 AM GAS METER INSTALLER us Notinfile Unknown LAB BLOOD ORDERABLES Final Res ult Performing Organization Address [facility] Co de Phone Number GEETHA [address] [address] * Vitamin D 25 hydroxy (11/20/2024 11:16 AM GAS METER INSTALLER) Vitamin D 25-OH 32.0 30.0 - 80.0 ng/mL Blood 11/20/2024 11:1 6 AM GAS METER INSTALLER 11/20/2024 2:28 PM GAS METER INSTALLER us Notinfile Unknown LAB BLOOD ORDERABLES Final Res ult Performing Organization Address [facility] de Phone Number GEETHA [address] [address] * TSH (11/20/2024 11:16 AM GAS METER INSTALLER) Thyroid Stimulating Hormone 1.69 0.30 - 4.20 mcIUnit/mL Comment:Testing performed by : [address] [address] Blood 11/20/2024 11:1 6 AM GAS METER INSTALLER 11/20/2024 1:44 PM GAS METER INSTALLER us Notinfile Unknown LAB BLOOD ORDERABLES Final Res ult Performing Organization Address [facility] de Phone Number JORDAN[address] [address] * (ABNORMAL) Hemoglobin A1c (11/20/2024 11:16 AM GAS METER INSTALLER) Hgb A1C 7.0(H) 4.0 - 5.6 % Comment:Testing performed by : [address] [address] Estimated Average Glucose 154 mg/dL GEETHA Comment: The ADA recommends reporting an estimated Average Glucose (eAG) with all Hemoglobin A1c results using the equation derived from a study of 507 normal and diabetic adults. Minority populations were underrepresented and children were not included. (Diabetes Care 31:5824-6982, 2008). The eAG is not equivalent to a fasting glucose. Testing performed by: [facility], [address] [place] [address]., [address] Blood 11/20/2024 11:1 6 AM GAS METER INSTALLER 11/20/2024 1:44 PM GAS METER INSTALLER us Notinfile Unknown LAB BLOOD ORDERABLES Final Res ult GEETHA [address] [facility] [place] [address] * (ABNORMAL) Lipid panel (11/20/2024 11:16 AM GAS METER INSTALLER) Cholesterol 303(H) 30 - 199 mg/dL Comment: Interpretive Data Ages < or = 19 years Acceptable: <170 mg/dL Borderline high: 170-199 mg/dL High: >or= 200 mg/dL Ages > or = 20 years Desirable: <200 mg/dL Borderline high: 200-239 mg/dL High: >or= 240 mg/dL Literature References: 1. Expert Panel on Integrated Guidelines for Cardiovascular Health and Risk Reduction in Children and Adolescents. Pediatrics 2011;128:S213 2. NCEP Expert Panel. Circulation 2004;110:227 Current Interpretive Data was last revised on 2018. Testing performed by: [address] [address] Triglycerides 290(H) <=149 mg/dL GEETHA BENJAMIN Comment: Interpretive Data Ages < or = 9 years Acceptable: <75 mg/dL Borderline high: 75-99 mg/dL High: >or= 100 mg/dL Ages 10 to 20 years Acceptable: <90 mg/dL Borderline high: 90-129 mg/dL High: >or= 130 mg/dL Ages > or = 20 years Desirable: <150 mg/dL Borderline high: 150-199 mg/dL High: 200-499 mg/dL Very high: >or= 499 mg/dL Literature References: 1. Expert Panel on Integrated Guidelines for Cardiovascular Health and Risk Reduction in Children and Adolescents. Pediatrics 2011;128:S213 2. NCEP Expert Panel. Circulation 2004;110:227 Current Interpretive Data was last revised on 2018. Testing performed by: [address] [address] HDL 56 >=40 mg/dL GEETHA Comment: Interpretive Data Ages < or = 19 years Acceptable: >45 mg/dL Borderline low: 40-45 mg/dL Low: <40 mg/dL Ages > or = 20 years Desirable: >or= 60 mg/dL Low: <40 mg/dL Literature References: 1. Expert Panel on Integrated Guidelines for Cardiovascular Health and Risk Reduction in Children and Adolescents. Pediatrics 2011;128:S213 2. NCEP Expert Panel. Circulation 2004;110:227 Current Interpretive Data was last revised on 2018. Testing performed by: [address] [address] LDL, calculated 190(H) <=129 mg/dL GEETHA Comment: Interpretive Data Ages < or = 19 years Acceptable: <110 mg/dL Borderline high: 110-129 mg/dL High: >or= 130 mg/dL Ages > or = 20 years Optimal: <100 mg/dL Near optimal: 100-129 mg/dL Borderline high: 130-159 mg/dL High: >160 mg/dL Calculated using the Josue LDL-C estimating equation. This equation was implemented on 2024. Prior to this date LDL-C was estimated using the Friedewald equation. Literature References: 1. Expert Panel on Integrated Guidelines for Cardiovascular Health and Risk Reduction in Children and Adolescents. Pediatrics 2011;128:S213 2. NCEP Expert Panel. Circulation 2004;110:227 3. Josue Mccray al. JAIME Cardiol. 2020 February 22;5(5):540-548. doi: 10.1001/[email or web address] Current Interpretive Data was last revised on 2024. Testing performed by: [address] [address] Non-HDL Cholesterol 247 mg/dL GEETHA Comment: Interpretive Data Ages < or = 19 years Acceptable: <120 mg/dL Borderline high: 120-144 mg/dL High: >145 mg/dL Ages > or = 20 years When triglycerides are >200 mg/dL, Non-HDL cholesterol is a secondary target of therapy with treatment goals that are 30 mg/dL greater than the LDL cholesterol target. Literature References: 1. Expert Panel on Integrated Guidelines for Cardiovascular Health and Risk Reduction in Children and Adolescents. Pediatrics 2011;128:S213 2. NCEP Expert Panel. Circulation 2004;110:227 Current Interpretive Data was last revised on 2018. Testing performed by: [address] [address] Chol/HDL ratio 5 GEETHA Comment:Testing performed by : [address] [address] Blood 11/20/2024 11:1 6 AM GAS METER INSTALLER 11/20/2024 1:44 PM GAS METER INSTALLER us Notinfile Unknown LAB BLOOD ORDERABLES Final Res ult GEETHA [address] [place] [address] * (ABNORMAL) Comprehensive metabolic panel (11/20/2024 11:16 AM GAS METER INSTALLER) Sodium 142 135 - 145 mmol/L Comment:Testing performed by : [address] [address] Potassium, pl 4.6 3.3 - 4.9 mmol/L GEETHA Comment:Testing performed by : [address] [address] Chloride 108 97 - 110 mmol/L GEETHA Comment:Testing performed by : [address] [address] CO2 23 22 - 32 mmol/L GEETHA Comment:Testing performed by : [address] [address] Anion gap 11 2 - 15 mmol/L GEETHA Comment:Testing performed by : [address] [address] BUN 25 6 - 25 mg/dL GEETHA Comment:Testing performed by : [address] [place] [address] Creatinine 1.40(H) 0.60 - 1.10 mg/dL GEETHA Comment:Testing performed by : [address] [address] Glucose 208(H) 70 - 199 mg/dL GEETHA Comment: Interpretive Data Fasting glucose >/= 126 mg/dl is diagnostic for diabetes. Fasting is defined as no caloric intake for at least 8 hours. Fasting glucose between 100 mg/dl to 125 mg/dl is diagnostic of prediabetes. In a patient with classic symptoms of hyperglycemia or hyperglycemic crisis, a random glucose >/= 200 mg/dl is diagnostic for diabetes. In the absence of unequivocal hyperglycemia, results should be confirmed by repeat testing. The classification and Diagnosis of Diabetes Diabetes Care 202; 46: S19-S40. Current interpretive data was last revised 2022. Testing performed by: [address] [address] Calcium 8.7 8.5 - 10.3 mg/dL GEETHA Comment:Testing performed by : [address] [address] Bilirubin, total 0.3 0.1 - 1.2 mg/dL [facility] Comment:Testing performed by : [address] [address] Protein, pl 6.7 6.5 - 8.5 g/dL GEETHA Comment:Testing performed by : [address] [address] Albumin 3.9 3.5 - 5.0 g/dL GEETHA Comment:Testing performed by : [address] [address] Alk phos 52 40 - 130 Units/L GEETHA Comment:Testing performed by : [address] [address] ALT 14 7 - 45 Units/L GEETHA Comment:Testing performed by : [address] [address] AST 31 10 - 45 Units/L GEETHA Comment:Testing performed by : [address] [address] Blood 11/20/2024 11:1 6 AM GAS METER INSTALLER 11/20/2024 11:21 AM GAS METER INSTALLER Eri Maddie Green DO LAB BLOOD ORDERABLES Final R esult Performing Organization Address [facility] Co de Phone Number GEETHA [address] [address] * (ABNORMAL) eGFR (11/09/2024 7:49 AM GAS METER INSTALLER) eGFR 32(L) >=60 mL/min/1. 73 m2 Comment: Interpretive Data Reference Interval Normal >/= 90 mL/min/1.73m2 Mildly decreased* 60 - 89 mL/min/1.73m2 Mildly to moderately decreased 45 - 59 mL/min/1.73m2 Moderately to severely decreased 30 - 44 mL/min/1.73m2 Severely decreased 15 - 29 mL/min/1.73m2 Kidney Failure < 15 mL/min/1.73m2 *Relative to young adult level Estimated glomerular filtration rate is determined by the 2020 CKD-EPI equation recommended by the National Kidney Foundation (A Unifying Approach to GFR Estimation: Recommendations of the NKF-ASK Task Force on Reassessing the Inclusion of Race in Diagnosing Kidney Disease, JASN 2020). The CKD-EPI equation should not be used for patients with unstable renal function and has not been validated in children and those over 70. Current interpretive data was last reviewed 2021. Testing performed by: [facility], [address] [place] [address]., [address] Blood 11/09/2024 7:49 AM GAS METER INSTALLER 11/09/2024 7:56 AM GAS METER INSTALLER Eri Green DO LAB BLOOD ORDERABLES Final R esult Performing Organization Address City/[facility]/ZIP Co de Phone Number GEETHA [address] [place] [address] * Differential, auto (11/09/2024 7:49 AM GAS METER INSTALLER) Neutrophil abs 1.9 1.5 - 6.5 K/cumm Comment:Testing performed by : [facility], [address] [place] [address], [place]., [address] Imm gran abs 0.0 0.0 - 0.1 K/cumm [facility] Comment:Testing performed by : [address], [place]., [address] Lymphocyte abs 1.4 0.8 - 3.3 K/cumm [facility] Comment:Testing performed by : [address], [place]., [address] Monocyte abs 0.7 0.2 - 0.8 K/cumm [facility] Comment:Testing performed by : [address], [place]., [address] Eosinophil abs 0.3 0.0 - 0.5 K/cumm [facility] Comment:Testing performed by : [address], [place]., [address] Basophil abs 0.0 0.0 - 0.1 K/cumm [facility] Comment:Testing performed by : [address] [address] Neutrophil pct 44.7 % [facility] Comment: Interpretive Data Percent cell count reference ranges are not reported, since discordance with absolute values may lead to misinterpretation of CBC data. Current Interpretive Data was last revised on 2018. Testing performed by: [address] [address] Imm gran pct 0.2 % [facility] Comment: Interpretive Data Percent cell count reference ranges are not reported, since discordance with absolute values may lead to misinterpretation of CBC data. Current Interpretive Data was last revised on 2018. Testing performed by: [address] [address] Lymphocyte pct 32.3 % [facility] Comment: Interpretive Data Percent cell count reference ranges are not reported, since discordance with absolute values may lead to misinterpretation of CBC data. Current Interpretive Data was last revised on 2018. Testing performed by: [address] [address] Monocyte pct 16.2 % [facility] Comment: Interpretive Data Percent cell count reference ranges are not reported, since discordance with absolute values may lead to misinterpretation of CBC data. Current Interpretive Data was last revised on 2018. Testing performed by: [address] [address] Eosinophil pct 5.9 % GEETHA Comment: Interpretive Data Percent cell count reference ranges are not reported, since discordance with absolute values may lead to misinterpretation of CBC data. Current Interpretive Data was last revised on 2018. Testing performed by: [address] [address] Basophil pct 0.7 % GEETHA Comment: Interpretive Data Percent cell count reference ranges are not reported, since discordance with absolute values may lead to misinterpretation of CBC data. Current Interpretive Data was last revised on 2018. Testing performed by: [address] [address] Blood 11/09/2024 7:49 AM GAS METER INSTALLER 11/09/2024 7:56 AM GAS METER INSTALLER us Eri Green DO LAB BLOOD ORDERABLES Final R esult GEETHA [address] [facility] [place] [address] * (ABNORMAL) CBC with auto differential (11/09/2024 7:49 AM GAS METER INSTALLER) WBC 4.3 3.8 - 9.9 K/cumm Comment:Testing performed by : [address] [address] Hgb 9.9(L) 11.9 - 15.5 g/dL GEETHA Comment:Testing performed by : [address] [address] Hct 29.3(L) 35.6 - 45.5 % GEETHA Comment:Testing performed by : [address] [address] Plt 212 150 - 400 K/cumm GEETHA Comment:Testing performed by : [address] [address] MPV 9.8 9.1 - 12.3 fL GEETHA [facility]IN Comment:Testing performed by : [address] [address] RBC 3.46(L) 3.90 - 5.20 M/cumm GEETHA [facility]IN Comment:Testing performed by : [address] [address] MCV 84.7 81.3 - 96.4 fL GEETHA Comment:Testing performed by : [address] [address] MCH 28.6 27.1 - 33.3 pg GEETHA Comment:Testing performed by : [address] [address] MCHC 33.8 32.3 - 35.7 g/dL GEETHA Comment:Testing performed by : [address], [address] RDW CV 12.5 11.1 - 14.9 % GEETHA Comment:Testing performed by : [address] [address] RDW SD 38.3 35.7 - 48.1 fL GEETHA Comment:Testing performed by : [address] [address] NRBC abs 0.00 0.00 - 0.01 K/cumm GEETHA Comment:Testing performed by : [address] [address] Blood 11/09/2024 7:49 AM GAS METER INSTALLER 11/09/2024 7:56 AM GAS METER INSTALLER us Eri Green DO LAB BLOOD ORDERABLES Final R esult GEETHA [address] [facility] Department [place] [address] * (ABNORMAL) Comprehensive metabolic panel (11/09/2024 7:49 AM GAS METER INSTALLER) [facility] Sodium 139 135 - 145 mmol/L Comment:Testing performed by : [address] [address] Potassium, pl 3.9 3.3 - 4.9 mmol/L [facility] Comment:Testing performed by : [address] [address] Chloride 103 97 - 110 mmol/L [facility] Comment:Testing performed by : [address], [place]., [address] CO2 22 22 - 32 mmol/L GEETHA Comment:Testing performed by : [address] [address] Anion gap 14 2 - 15 mmol/L [facility] Comment:Testing performed by : [address] [address] BUN 30(H) 6 - 25 mg/dL [facility] Comment:Testing performed by : [address], [place]., [address] Creatinine 1.60(H) 0.60 - 1.10 mg/dL [facility] Comment:Testing performed by : [address] [address] Glucose 106 70 - 199 mg/dL [facility] Comment: Interpretive Data Fasting glucose >/= 126 mg/dl is diagnostic for diabetes. Fasting is defined as no caloric intake for at least 8 hours. Fasting glucose between 100 mg/dl to 125 mg/dl is diagnostic of prediabetes. In a patient with classic symptoms of hyperglycemia or hyperglycemic crisis, a random glucose >/= 200 mg/dl is diagnostic for diabetes. In the absence of unequivocal hyperglycemia, results should be confirmed by repeat testing. The classification and Diagnosis of Diabetes Diabetes Care 202; 46: S19-S40. Current interpretive data was last revised 2022. Testing performed by: [address] [address] Calcium 9.1 8.5 - 10.3 mg/dL [facility] Comment:Testing performed by : [address] [address] Bilirubin, total 0.3 0.1 - 1.2 mg/dL [facility] Comment:Testing performed by : [address] [address] Protein, pl 7.4 6.5 - 8.5 g/dL GEETHA [facility]ENJAMIN Comment:Testing performed by : [address] [address] Albumin 4.0 3.5 - 5.0 g/dL GEETHA [facility]IN Comment:Testing performed by : [address] [address] Alk phos 56 40 - 130 Units/L GEETHA Comment:Testing performed by : [address], [address] ALT 37 7 - 45 Units/L GEETHA Comment:Testing performed by : [address] [address] AST 51(H) 10 - 45 Units/L GEETHA Comment:Testing performed by : [address] [address] Blood 11/09/2024 7:49 AM GAS METER INSTALLER 11/09/2024 7:56 AM GAS METER INSTALLER Eri Green DO LAB BLOOD ORDERABLES Final R esult GEETHA [facility]3 [facility] Department of Laboratories [place], [place] [id number] * Dexa Axial Skeleton Bone Density 1 or 2 Site (01/15/2023 1:26 PM CDT) Anatomical Region Laterality Modality Body N/A Mammography 01/16/2023 9:47 AM CDT Narrative 01/16/2023 9:48 AM CDT EXAM DESCRIPTION: DEXA AXIAL SKELETON BONE DENSITY 1 OR MORE SITES REASON FOR STUDY: 77 y/o year old F with given history of screening. Postmenopausal Ed Educational Aide/Model: Zeetl A (S/N [id number]) CLINICAL INFORMATION: Current height: 58 inches Maximum height: 61 inches Weight: 96 pounds Risk factors: Cancer, postmenopausal COMPARISON: None available FINDINGS: AP LUMBAR SPINE L1-L4: Total BMD is 0.714 g/cm2 T-score is -3.0 LEFT HIP: Total BMD is 0.685 g/cm2 T-score is -2.1 Femoral neck BMD is 0.494 g/cm2 T-score is -3.2 FRAX: FRAX not reported due to T-scores of hip, femoral neck and/or spine being at or below -2.5 (Osteoporosis). IMPRESSION: Osteoporosis. REFERENCE: Bone mineral density: Normal (T-score above or = -1.0) Low bone mass (T-score between -1.0 and -2.5) replaces the previously used term osteopenia Osteoporosis (T-score = or below -2.5) Medical evaluation for secondary causes of low bone mineral density may be appropriate. FRAX is a World Health Organization validated fracture risk assessment tool that calculates a person's 10 year probability of a major osteoporosis related fracture and hip fracture. According to the National Osteoporosis Foundation guidelines, postmenopausal women and men age 50 or older with low bone mass and a 10 year probability of a major osteoporosis related fracture = or greater than 20% or a 10 year probability of a hip fracture = or greater than 3% should be considered for treatment. For further information, including treatment recommendations, please refer to the 2013 ISCD Official Positions (http://www.iscd.org) and the NOF's Clinician's Guide to Prevention and Treatment of Osteoporosis (http://www.nof.org/professionals/clinical-guidelines) THIS IS AN ELECTRONICALLY VERIFIED FINAL REPORT 01/16/2023 9:48 AM - Electronically signed by Nguyễn Joy M.D. MF: RANDY Report ID: [id number] Reading Location: [place] [address] Procedure Note Nguyễn Joy MD - 01/16/2023 EXAM DESCRIPTION: DEXA AXIAL SKELETON BONE DENSITY 1 OR MORE SITES REASON FOR STUDY: 77 y/o year old F with given history of screening. Postmenopausal Ed Educational Aide/Model: HoloCircleCI A (S/N [id number]) CLINICAL INFORMATION: Current height: 58 inches Maximum height: 61 inches Weight: 96 pounds Risk factors: Cancer, postmenopausal COMPARISON: None available FINDINGS: AP LUMBAR SPINE L1-L4: Total BMD is 0.714 g/cm2 T-score is -3.0 LEFT HIP: Total BMD is 0.685 g/cm2 T-score is -2.1 Femoral neck BMD is 0.494 g/cm2 T-score is -3.2 FRAX: FRAX not reported due to T-scores of hip, femoral neck and/or spine beingat or below -2.5 (Osteoporosis). IMPRESSION: Osteoporosis. REFERENCE: Bone mineral density: Normal (T-score above or = -1.0) Low bone mass (T-score between -1.0 and -2.5) replaces thepreviously used term osteopenia Osteoporosis (T-score = or below -2.5) Medical evaluation for secondary causes of low bone mineral density may be appropriate. FRAX is a World Health Organization validated fracture risk assessmenttool that calculates a person's 10 year probability of a major osteoporosisrelated fracture and hip fracture. According to the National OsteoporosisFoundation guidelines, postmenopausal women and men age 50 or older with low bonemass and a 10 year probability of a major osteoporosis related fracture = or greater than 20% or a 10 year probability of a hip fracture = or greaterthan 3% should be considered for treatment. For further information, including treatment recommendations, please referto the 2013 ISCD Official Positions (http://www.iscd.org) and the NOF's Clinician's Guide to Prevention and Treatment of Osteoporosis (http://www.nof.org/professionals/clinical-guidelines) THIS IS AN ELECTRONICALLY VERIFIED FINAL REPORT 01/16/2023 9:48 AM - Electronically signed by Nguyễn Joy M.D. MF: RANDY Report ID: [id number] Reading Location: [place] [address] Byron Sebastian MD IMG DXA PROCEDURES Final Re sult from Last 3 Months or Most Recently Relevant to Health Maintenance Insurance [facility] MEDICARE ADVANTAGE [address] [place] [id number] UHC MEDICARE ADVANTAGE UHC MEDICARE ADVANTAGE Advance Directives For more information, please contact: [phone] * Full Code (Latest Code Status on File) Date Activated Date Inactivated Comments 12/19/2022 7:43 AM 12/21/2022 3:29 PM * Full Code Date Activated Date Inactivated Comments 07/27/2022 8:32 PM 07/28/2022 9:25 PM Care Teams Supervisor Boiler Repair Relationship Specialty Start Date End Date Dev Concepcion MD [address] [place] [address] [address] [place] [address] PCP - General Family Medicine 07/13/24 Griffin Peterson MD [address] [place] [address] [address] [place] [address] Surgery 05/23/20 Zane Jeffery MD [address] [facility] [address] [place] [address] Pain Management 06/27/20 Tahmina Antoine NP [address] [place] [address] [address] [place] [address] Nurse Practitioner Medical Oncology 09/30/22 Vidhya Avila MD [address] [facility] [address] [place] [address] Guide Changer Gastroenterology 10/08/22 Anuj Contreras MD [address] [place] [address] [address] [place] [address] Radiation Oncologist Radiation Oncology 03/06/24 Eri Green DO [address] [place] [address] Medical Oncologist/Ultrasound Tech Hematology and Oncology 05/24/24 [place] [address] [place] [address] [address] [place] [address] Consulting Physician Interventional Cardiology 12/22/24
--- OUTSIDE RECORDS SUMMARY | 2025-02-05 08:31 | XMS_ITS | Continuity of Care Document ---
Author Organization [facility] Address [address] [facility] [address] [place] [address] Phone Care Team Providers Care Direct Sales Consultant Name Role Phone Azalia Duque Unavailable Unavailable [...] Copied on Encounter Office/outpat ient Visit, Est [facility], [address] [place] [address] [address], [place], [place], [id number], [place] tel:[phone] [facility] No Information 0 Dunia Vieyra. [address] , [address], [place], [address], [place]. tel:[phone] [facility], [address], [place], [place], [id number], [place] tel:[phone] [facility] No Information Feb-0 4-201 0 Carvalho OD Emanuel. [address] , [address], [place], [address], [place]. tel:[phone] [facility], [address] [place] [address] [address], [place], [place], [id number], tel:[phone] [facility] No Information Sep-1 2-200 8 Carvalho OD Emanuel. [address] , [address], [place], [place], [facility], [place]. tel:[phone] [facility], [address] [place] [address] [address], [place], [place], [address], tel:[phone] [facility] No Information Aug-2 8-200 8 Carvalho OD Emanuel. [address] [facility] [address] , [address], [place], [place], [facility], . tel:[phone] [facility], [address] [place] [address] [address], [place], [place], [id number], tel:[phone] [facility] No Information Froilan-0 2-200 7 Carvalho OD Emanuel. [address] [facility] [address] , [address], [place], [address], [place]. tel:[phone] Family History Family Member Type Diagnosis Age At Onset No Information Payers Payer name Insurance type Covered democrat ID Authoriza tikelsi(s) [place] [id number] [facility] Custom Care CI [id number] Social History Type Description Quantity Date Captured [...]
--- OUTSIDE RECORDS SUMMARY | 2025-02-05 08:31 | XMS_ITS | Clinical Summary ---
Author Organization [facility] Address [address] [place] [address] Phone Care Team Providers Care Scheduling Clerk Name Role Phone Gwendolyn Lee MD Primary Care Provider + Allergies Active Allergy Reactions Criticality Noted Date Comments Amoxicillin Swelling High 11/06/2022 Ciprofloxacin Rash 11/06/2022 Medications ibandronate (BONIVA) 150 MG Tablet Take 150 mg by mouth every 30 days. Active rivaroxaban (XARELTO) 20 MG Tablet Take 20 mg by mouth daily. Take with food. Takes for port Active DULoxetine (CYMBALTA) [address] Particles Take 30 mg by mouth daily. Active Cholecalciferol (VITAMIN D-3 PO) Take 2 Tablets by mouth daily. Active Multiple Vitamins-Minera ls (PRESERVISION AREDS PO) Take 1 Capsule by mouth daily. Active Multiple Vitamins-Minera ls (CENTRUM SILVER 50+WOMEN PO) Take 1 Tablet by mouth daily. Active Active Problems No known active problems Family History Medical History Relation Name Comments Diabetes Mother Macular Degeneration Mother Relation Name Status Comments Father Mother Social History Tobacco Use Types Packs/Day Years Used Date Smoking Tobacco: Former Cigarettes Q uit: 1985 Smokeless Tobacco: Never Tobacco Cessation:Counseling Given: Not Answered Alcohol Use Standard Drinks/Week Comments Not Asked 0 (1 standard drink = 0.6 oz pur e alcohol) minimal Comments Unknown Sex and Gender Information Value Date Recorded Sex Assigned at Not on file Legal Sex Female 9:19 AM HEMATOLOGY TECHNOLOGIST Gender Identity Not on file Sexual Orientation Not on file Last Filed Vital Signs Vital Sign Reading Time Taken Comments Blood Pressure 154/89 11/16/2022 10:55 AM HEMATOLOGY TECHNOLOGIST Pulse 93 11/16/2022 10:55 AM HEMATOLOGY TECHNOLOGIST Temperature 35.9 C (96.6 F) 11/16/2022 10:55 AM HEMATOLOGY TECHNOLOGIST Respiratory Rate 16 11/16/2022 10:05 AM HEMATOLOGY TECHNOLOGIST Oxygen Saturation 98% 11/16/2022 10:55 AM HEMATOLOGY TECHNOLOGIST Inhaled Oxygen Concentration - - Weight 45.4 kg (100 lb) 11/06/2022 1:00 PM HEMATOLOGY TECHNOLOGIST Height 149.9 cm (4' 11 ) 11/06/2022 1:00 PM HEMATOLOGY TECHNOLOGIST Body Mass Index 20.2 11/06/2022 1:00 PM HEMATOLOGY TECHNOLOGIST Plan of Treatment Health Maintenance Due Date Last Done Comments Hepatitis C Virus (HCV) Screening 1945 Respiratory Syncytial Virus (RSV) Immunization (Adult) (1 - 1-dose 75+ series) 01/28/2019 Zoster Immunization (2 of 2) 12/28/2022 11/02/2022 Influenza Immunization (#1) 06/25/202407/26, 08/06/2021, 07/17/2021, Additional history exists SARS-COV-2 Immunization ( season) 2024 08/18/2022, 02/09/2022, 08/21/2021, Additional history exists DTaP/Tdap/Td Immunization Discontinued 12/12/2017 TdaP Immunization Completed 12/12/2017 Pneumococcal Immunization (50+ years) Completed 09/22/2018, 09/20/2017 Hepatitis B Immunization Aged Out No longer eligible based on patient's age to complete this topic Meningococcal Immunization (ACWY) Aged Out No longer eligible based on patient's age to complete this topic Rotavirus Immunization Aged Out No lo nger eligible based on patient's age to complete this topic Medical Devices Implanted Type Area Retail Advertising Account Executive Device Identifier Shelf Expiration Date Model / Serial / Lot Rupesh And Rupesh Tecnis Toric 2 Implanted:Qty: 1 on 11/16/2022 by Nguyễn Qiu MD at [facility] Left: Eye RUPESH & RUPESH [facility] 07/05/2025 [id number] / [id number] / [id number] Insurance MEDICARE C [facility] [place] [address] Care Teams Scheduling Clerk Relationship Specialty Start Date End Date Gwendolyn Lee MD [address] [place] [address] PCP - General Family Medicine 11/16/22
--- OUTSIDE RECORDS SUMMARY | 2025-02-05 08:31 | XMS_ITS | Referral Summary ---
Author Organization [facility] [address] Address [address] [place] [address] Care Team Providers Care Conference Center Manager Name Role Phone Griffin Peterson MD Unavailable [phone] Zane Jeffery MD Unavailable Tahmina Antoine AIR HOSE COUPLER Unavailable [phone] Vidhya Avila MD Unavailable [phone] Anuj Contreras MD Unavailable [phone] Eri Green DO Unavailable [phone] Dev Concepcion MD Primary Care Provider + Shashi Jerez MD Unavailable [phone] Encounters Date Type Department Care Team Description 02/01/2025 12:04 PM CDT - 02/01/2025 3:54 PM CDT Emergency [facility] Emergency Department [address] [place] [address] Ian Ramirez MD Palpitations (Primary Dx); Generalized weakness Discharge Disposition: Discharge to home or self care 02/01/2025 Telephone [facility] Cardiology [address] [place] [address] Shashi Jerez MD 01/26/2025 12:11 PM CDT - 01/26/2025 11:59 PM CDT Hospital Encounter [facility] MRI [address] [place] [address] Spinal stenosis of lumbar region, unspecified whether neurogenic claudication present Discharge Disposition: Discharge to home or self care 01/15/2025 Orders Only [facility] On[facility] [facility] [address] [place] [phone] Eri Green DO 01/15/2025 10:00 AM CDT Infusion [facility] at [address] [place] [phone] 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, estrogen receptor positive (HCC) (Primary Dx); Encounter for person encountering health services 01/15/2025 9:30 AM CDT Clinical Support [facility] at [address] [address] Encounter for person encountering health services; 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, estrogen receptor positive (HCC) 01/08/2025 8:47 AM CDT - 01/08/2025 11:59 PM CDT Hospital Encounter [facility] [address] [address] Zane Jeffery MD Spinal stenosis of lumbar region, unspecified whether neurogenic claudication present Discharge Disposition: Discharge to home or self care 12/27/2024 Orders Only [facility] [address] [address] Dede Reyez RN 12/27/2024 Orders Only [facility] [address] [address] Dede Reyez, RN 12/27/2024 Orders Only [facility] [address] [address] Dede Reyez RN 12/27/2024 Telephone [facility] [address] [facility] [address] [place] [address] Dede Reyez, RN 12/25/2024 Telephone [facility] [address] [facility] [address] [place] [address] Wendy Dinh RN 12/25/2024 1:52 PM HEAD OF CYTOGENETICS - 12/25/2024 11:59 PM HEAD OF CYTOGENETICS Hospital Encounter [facility] [address] [facility] [address] [place] [address] Zane Jeffery MD Spinal stenosis of lumbar region, unspecified whether neurogenic claudication present (Primary Dx); Bulge of lumbar disc without myelopathy; Neural foraminal stenosis of lumbar spine; Radiculopathy, lumbar region Discharge Disposition: Discharge to home or self care 12/22/2024 11:15 AM HEAD OF CYTOGENETICS - 12/22/2024 11:59 PM HEAD OF CYTOGENETICS Hospital Encounter [facility] [address] 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, estrogen receptor positive (HCC); 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); Lumbar radiculopathy Discharge Disposition: Discharge to home or self care 12/18/2024 Telephone [facility] [address] [facility] [address] [place] [address] Alondra Alvarado 12/18/2024 Orders Only [facility] [address] [facility] [address] [place] [address] Eri Green DO 12/18/2024 9:15 AM HEAD OF CYTOGENETICS Infusion [facility] at [address] [place] [phone] 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, estrogen receptor positive (HCC) (Primary Dx); Encounter for person encountering health services 12/18/2024 8:15 AM HEAD OF CYTOGENETICS Clinical Support [facility] at [address] [address] Encounter for person encountering health services; 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, estrogen receptor positive (HCC) 12/18/2024 8:45 AM HEAD OF CYTOGENETICS Office Visit [facility] Physicians [facility] Oncology [address] [place] [phone] Eri Green DO 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, estrogen receptor positive (HCC) (Primary Dx); Encounter for person encountering health services; 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); Lumbar radiculopathy 12/11/2024 10:59 AM HEAD OF CYTOGENETICS - 12/11/2024 11:59 PM HEAD OF CYTOGENETICS Hospital Encounter [facility] Medical Office Building [address] [place] [address] 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, estrogen receptor positive (HCC) Discharge Disposition: Discharge to home or self care 12/06/2024 1:00 PM HEAD OF CYTOGENETICS Ancillary Procedure [facility] [address] [facility] [address] [place] [address] Cardiomyopathy, unspecified type (HCC) 11/27/2024 12:52 PM HEAD OF CYTOGENETICS - 11/27/2024 5:29 PM HEAD OF CYTOGENETICS Emergency [facility] Emergency Department [address] [place] [address] Mark Gill MD Enteritis (Primary Dx) Discharge Disposition: Discharge to home or self care 11/20/2024 11:45 AM HEAD OF CYTOGENETICS Infusion [facility] at [address] [place] [phone] 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, estrogen receptor positive (HCC) (Primary Dx); Encounter for person encountering health services 11/20/2024 11:15 AM HEAD OF CYTOGENETICS Clinical Support [facility] at [address] [address] Encounter for person encountering health services; 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, estrogen receptor positive (HCC) 11/19/2024 Orders Only [facility] Physicians [facility] Oncology [address] [place] [address] [address] [place] [address] Eri Green DO 11/16/2024 3:30 PM HEAD OF CYTOGENETICS Office Visit [facility] [address] [facility] [address] [place] [address] Shashi Jerez MD Cardiomyopathy, unspecified type (HCC) (Primary Dx); Mixed diabetic hyperlipidemia associated with type 2 diabetes mellitus (CMS/HCC) (HCC); History of DVT (deep vein thrombosis); Status post ablation of atrial fibrillation; Chronic anticoagulation; Paroxysmal atrial fibrillation (HCC) 11/09/2024 8:15 AM HEAD OF CYTOGENETICS Clinical Support [facility] at [address] [address] 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, estrogen receptor positive (HCC) 11/09/2024 8:00 AM HEAD OF CYTOGENETICS Office Visit [facility]cology [address] [place] [address] [address] [place] [address] Eri Green DO 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, estrogen receptor positive (HCC) (Primary Dx); Encounter for person encountering health services from Last 3 Months Allergies Active Allergy Reactions Criticality Noted Date Comments Amoxicillin Angioedema High Ciprofloxacin Rash Medium 11/20/2020 Medications fexofenadine (MONA) 60 mg tablet Take 1 tablet (60 mg total) by mouth daily as needed Active ProAir HFA 90 mcg/actuation inhalerIndication s:Chronic Obstructive Pulmonary Disease Inhale 2 puffs every 4 (four) hours as needed for wheezing 1 each 3 022 Active fluticasone propionate (FLONASE) 50 mcg/actuation [...] total) by mouth every 30 (thirty) days 024 Active meclizine (ANTIVERT) 25 mg tablet Take [...] MOUTH THREE TIMES DAILY 90 capsule 1 025 Active metoprolol XL (TOPROL-XL) 25 mg extended [...] muscle spasms 30 tablet 025 2024 Discontinued(R vito) Active Problems Problem Noted Date Diagnosed Date [...] and management of unspecified implanted device 02/24/2023 technician terminal and repeater (current) use of aromatase inhibitors 02/18/2023 Congestive [...] from 03/25/2020:Stage IV(cT3, cN3c, cM1, G3, ER+, OK-, HER2-) - Unsigned Assessment & Plan (03/09/2022 10:39 AM CDT): Patient continues to see . MICHELLE on CPAP 03/15/2019 Assessment & Plan (10/15/2023 8:56 AM HEAD OF CYTOGENETICS): Due to continued symptoms, the patient will [...] months. Assessment & Plan (12/19/2021 10:14 AM HEAD OF CYTOGENETICS): Patient continue to wear CPAP at 8 cm water pressure while sleeping. Her DME is manuel Hernandez. I did send an order for new mask, hose and filter. Assessment & Plan (11/20/2020 8:23 AM HEAD OF CYTOGENETICS): The patient will continue with CPAP therapy at 8 cm water pressure to treat obstructive sleep apnea. The DME company is provider [employer]. The patient is benefitting from CPAP therapy. Assessment & Plan (09/13/2019 11:04 AM HEAD OF CYTOGENETICS): I will send an order to Provider [employer] to show her a variety of new styles of CPAP mask.. She continues to benefit from CPAP at 8 cm water pressure. Centrilobular emphysema 03/15/2019 Assessment & Plan (10/15/2023 8:56 AM HEAD OF CYTOGENETICS): Due to continued symptoms, the patient has [...] basis. Assessment & Plan (12/19/2021 10:14 AM HEAD OF CYTOGENETICS): I did reorder the patient's albuterol inhaler. The patient continues her albuterol as needed up to 4 times a day for shortness of breath. Assessment & Plan (11/20/2020 8:48 AM HEAD OF CYTOGENETICS): The patient will continue with an albuterol rescue inhaler p.r.n. up to 4 times a day as needed for shortness of breath, cough, wheeze, or COPD symptoms. A 6 minutes walk test has been ordered to evaluate the patient shortness of breath to see if she needs oxygen therapy. Assessment & Plan (09/13/2019 11:05 AM HEAD OF CYTOGENETICS): The patient has stage I COPD. I will prescribe her rescue inhaler for her to use on a p.r.n. basis. Hypertension associated with diabetes 01/09/2016 Sensation of chest tightness 08/19/2012 Difficulty breathing 08/19/2012 Mixed diabetic hyperlipidemi a associated with type 2 diabetes mellitus ([facility]) 08/19/2012 Resolved Problems Problem Noted Date Diagnosed Date Resolved Date Hyperlipidemia 08/19/2012 03/17/2022 Immunizations Immunization Administration Dates Next Due Influenza, Quadrivalent, Hig h Dose, Preservative Free, Intrr 08/21/2022 Influenza, Trivalent, Adjuva nted, Intramuscular 08/17/2018 Influenza, Trivalent, High D ose, Split, Preservative Free, Intramuscular 11/20/2019,09/20/2017 Influenza, Trivalent, IM (MDV) 11/01/2014 Influenza, Unspecified 08/21/2022,07/17/2021 Moderna SARS-CoV-2 Monovalen t Vaccination (12+ YRS) 02/09/2022,08/21/2021,01/07/2021,12/04 Pneumococcal Conjugate PCV 13 09/22/2018 Pneumococcal Polysaccharide PPV23 09/20/2017 Tdap 12/12/2017 Social History Tobacco Use Types Packs/Day Years Used Date Smoking Tobacco: Former Cigarettes 1 5 - 1984 Smokeless Tobacco: Never Tobacco Cessation:Counseling [...] on file Legal Sex Female 1:01 AM HEAD OF CYTOGENETICS Gender Identity Female 10/21/2023 6:48 AM HEAD OF CYTOGENETICS Sexual Orientation Straight 10/21/2023 6: 48 AM HEAD OF CYTOGENETICS Last Filed Vital Signs Vital Sign Reading [...] cm (4' 11 ) 11/27/2024 12:32 PM HEAD OF CYTOGENETICS Body Mass Index 20.48 11/27/2024 12:32 PM HEAD OF CYTOGENETICS Plan of Treatment Not on file Medical Devices Implanted Type Area Inspector Exhaust Emissions Device Identifier Shelf Expiration Date Model / Serial / Lot Clip Implanted:Qty: 1 on 12/18/2022 by Art Malik MD at [facility] Left: Axilla [facility] / / [id number] Procedures Procedure Name Priority Date/Time Associated Diagnosis [...] Read Routine (OP Routine) 12/25/2024 3:20 PM HEAD OF CYTOGENETICS Bulge of lumbar disc without myelopathy Spinal stenosis of lumbar region, unspecified whether neurogenic claudication present CT LUMBAR SPINE W WO CONTRAST Schedule Routine, Read Routine (OP Routine) 12/20/2024 2:45 PM HEAD OF CYTOGENETICS 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, 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) Lumbar radiculopathy EGFR STAT 12/18/2024 8:21 AM HEAD OF CYTOGENETICS Encounter for person encountering health services 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, estrogen receptor positive (HCC) DIFFERENTIAL AUTO Routine 12/18/2024 8:2 1 AM HEAD OF CYTOGENETICS Encounter for person encountering health services 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, estrogen receptor positive (HCC) CBC WITH AUTO DIFFERENTIAL Routine 12/18/2024 8:21 AM HEAD OF CYTOGENETICS Encounter for person encountering health services 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, estrogen receptor positive (HCC) COMPREHENSIVE METABOLIC PANEL STAT 12/18/2024 8:21 AM HEAD OF CYTOGENETICS Encounter for person encountering health services 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, estrogen receptor positive (HCC) CT CHEST ABDOMEN PELVIS WO CONTRAST Schedule Routine, Read Routine (OP Routine) 12/11/2024 11:18 AM HEAD OF CYTOGENETICS 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, estrogen receptor positive (HCC) TRANSTHORACIC ECHO (TTE) COMPLETE W DOPPLER/CF WO CONTRAST Routine 12/06/2024 1:15 PM HEAD OF CYTOGENETICS Cardiomyopathy, unspecified type (HCC) SEPSIS LACTATE WITH REFLEX Timed 11/27/2024 4:[address] ABDOMEN PELVIS WO CONTRAST ED 11/27/2024 3:08 PM HEAD OF CYTOGENETICS TROPONIN T HIGH-SENSITIVITY 2-HOUR Timed 11/27/2024 2:30 PM HEAD OF CYTOGENETICS STOOL CULTURE Routine 11/27/2024 2:30 PM HEAD OF CYTOGENETICS ECG 12-LEAD STAT 11/27/2024 12:51 PM HEAD OF CYTOGENETICS SEPSIS LACTATE WITH REFLEX STAT 11/27/2024 12:48 PM HEAD OF CYTOGENETICS INFLUENZA A/B, RSV, AND COVID-19 PCR STAT 11/27/2024 12:48 PM HEAD OF CYTOGENETICS TROPONIN T HIGH-SENSITIVITY SERIES (BASELINE, 2HR, 4HR, 6HR) STAT 11/27/2024 12:38 PM HEAD OF CYTOGENETICS EGFR STAT 11/27/2024 12:38 PM HEAD OF CYTOGENETICS DIFFERENTIAL AUTO STAT 11/27/2024 12:38 PM HEAD OF CYTOGENETICS COMPREHENSIVE METABOLIC PANEL STAT 11/27/2024 12:38 PM HEAD OF CYTOGENETICS CBC WITH AUTO DIFFERENTIAL STAT 11/27/2024 12:38 PM HEAD OF CYTOGENETICS EGFR STAT 11/20/2024 11:16 AM HEAD OF CYTOGENETICS Encounter for person encountering health services 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, estrogen receptor positive (HCC) DIFFERENTIAL AUTO Routine 11/20/2024 11:16 AM HEAD OF CYTOGENETICS HEMOGLOBIN A1C Routine 11/20/2024 11:16 AM HEAD OF CYTOGENETICS VITAMIN D 25 HYDROXY Routine 11/20/2024 11:16 AM HEAD OF CYTOGENETICS TSH Routine 11/20/2024 11:16 AM HEAD OF CYTOGENETICS CBC WITH AUTO DIFFERENTIAL Routine 11/20/2024 11:16 AM HEAD OF CYTOGENETICS LIPID PANEL Routine 11/20/2024 11:16 AM HEAD OF CYTOGENETICS PRO B-TYPE NATRIURETIC PEPTIDE Routine 11/20/2024 11:16 AM HEAD OF CYTOGENETICS IRON PROFILE W/ IBC Routine 11/20/2024 11:16 AM HEAD OF CYTOGENETICS COMPREHENSIVE METABOLIC PANEL STAT 11/20/2024 11:16 AM HEAD OF CYTOGENETICS Encounter for person encountering health services 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, estrogen receptor positive (HCC) EGFR Routine 11/09/2024 7:49 AM HEAD OF CYTOGENETICS 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 Testing performed by: [facility], [address] [place] [address]., [id number] Trop T hs delta 2 ng/L GEETHA BENJAMIN Comment:Testing performed by : [address] [address] Trop T hs interp Insignificant GEETHA BENJAMIN Comment:Testing performed by : [address] [address] Blood 02/01/2025 1:51 PM CDT 02/01/2025 2:12 PM CDT us Brii GÓMEZ LAB BLOOD ORDERABLES Final Resu lt GEETHA BENJAMIN [address] [facility] Department [place] [address] * XR Chest 1 Vw [...] Tom Huggins M.D. MZ: MZ Report ID: [id number] Reading Location: [id number] Procedure Note Tom Huggins MD - 02/01/2025 [...] Tom Huggins M.D. MZ: MZ Report ID: [id number] Reading Location: [id number] us Brii GÓMEZ IMG XR PROCEDURES Final Result * (ABNORMAL) Troponin T high-sensitivity series (baseline, 2hr, 4hr, 6hr) (02/01/2025 12:00 PM CDT) Trop T hs 41(H) <=14 ng/L Comment: Interpretive Data For further hscTnT resources including the diagnostic algorithm and an aid in interpretation, copy and paste this link: https://nrl.testcatalog.org/show/hsTrop Current Interpretive Data last revised 2020. Testing performed by: [facility], [address] [place] [address]., [id number] Blood 02/01/2025 12:0 0 PM CDT 02/01/2025 12:04 PM CDT us Brii GÓMEZ LAB BLOOD ORDERABLES Final Resu lt GEETHA [address] [facility] Department [place] [address] * (ABNORMAL) eGFR (02/01/2025 12:00 [...] was last reviewed 2021. Testing performed by: [address] [address] Blood 02/01/2025 12:0 0 PM CDT 02/01/2025 12:04 PM CDT Brii GÓMEZ LAB BLOOD ORDERABLES Final Resu lt [facility] [address] [facility] Department [place] [address] * (ABNORMAL) Differential, auto (02/01/2025 12:00 PM CDT) Neutrophil abs 2.02 1.50 - 6.50 K/cumm Comment:Testing performed by : [address] [address] Imm gran abs 0.01 0.00 - 0.10 K/cumm GEETHA Comment:Testing performed by : [address] [address] Lymphocyte abs 0.75(L) 0.80 - 3.30 K/cumm GEETHA Comment:Testing performed by : [address] [address] Monocyte abs 0.37 0.20 - 0.80 K/cumm GEETHA Comment:Testing performed by : [address] [address] Eosinophil abs 0.12 0.00 - 0.50 K/cumm GEETHA Comment:Testing performed by : [address] [address] Basophil abs 0.02 0.00 - 0.10 K/cumm GEETHA Comment:Testing performed by : [address] [address] Neutrophil pct 61.5 % GEETHA Comment: Interpretive Data Percent cell count reference ranges are not reported, since discordance with absolute values may lead to misinterpretation of CBC data. Current Interpretive Data was last revised on 2018. Testing performed by: [address] [address] Imm gran pct 0.3 % GEETHA Comment: Interpretive Data Percent cell count reference ranges are not reported, since discordance with absolute values may lead to misinterpretation of CBC data. Current Interpretive Data was last revised on 2018. Testing performed by: [address] [address] Lymphocyte pct 22.8 % GEETHA Comment: Interpretive Data Percent cell count reference ranges are not reported, since discordance with absolute values may lead to misinterpretation of CBC data. Current Interpretive Data was last revised on 2018. Testing performed by: [address] [address] Monocyte pct 11.2 % [facility] Comment: Interpretive Data Percent cell count reference ranges are not reported, since discordance with absolute values may lead to misinterpretation of CBC data. Current Interpretive Data was last revised on 2018. Testing performed by: [address] [address] Eosinophil pct 3.6 % [facility] Comment: Interpretive Data Percent cell count reference ranges are not reported, since discordance with absolute values may lead to misinterpretation of CBC data. Current Interpretive Data was last revised on 2018. Testing performed by: [address] [address] Basophil pct 0.6 % [facility] Comment: Interpretive Data Percent cell count reference ranges are not reported, since discordance with absolute values may lead to misinterpretation of CBC data. Current Interpretive Data was last revised on 2018. Testing performed by: [address] [address] Blood 02/01/2025 12:0 0 PM CDT 02/01/2025 12:04 PM CDT us Brii GÓMEZ LAB BLOOD ORDERABLES Final Resu lt GEETHA BENJAMIN [address] [facility] Department of Laboratories [place], [place] [id number] * (ABNORMAL) Pro B-type natriuretic peptide (02/01/2025 [...] advanced age. - References: 1. José Miguel JL et.al. Eur Heart J. 2006:27:330-337. 2. Octavio MERAZ, Billy ABRAMS. J. AM Eugenia Cardiol: Cardiovasc Imag. 2009;2: 216- 225. Interpretive Data Last Revised Date: 2018. Testing performed by: [facility], [address] [place] [address]., [address] Blood 02/01/2025 12:0 0 PM CDT 02/01/2025 12:04 PM CDT us Rehab James JHAVERI LAB BLOOD ORDERABLES Final Resu lt GEETHA [address] [facility] Department [place] [address] * Thyroid Function [place] (02/01/2025 12:00 PM CDT) TSH 1.09 0.30 - 4.20 mcIUnit/mL Comment:Testing performed by : [address] [address] Blood 02/01/2025 12:0 0 PM CDT 02/01/2025 12:04 PM CDT us Rehab James JHAVERI LAB BLOOD ORDERABLES Final Resu lt GEETHA [address] [facility] Department [place] [address] * (ABNORMAL) CBC with auto differential (02/01/2025 12:00 PM CDT) WBC 3.29(L) 3.80 - 9.90 K/cumm Comment:Testing performed by : [address] [address] Hgb 9.2(L) 11.9 - 15.5 g/dL GEETHA Comment:Testing performed by : [address] [address] Hct 28.7(L) 35.6 - 45.5 % GEETHA Comment:Testing performed by : [address] [address] Plt 163 150 - 400 K/cumm GEETHA Comment:Testing performed by : [address] [address] MPV 10.2 9.1 - 12.3 fL GEETHA Comment:Testing performed by : [address] [address] RBC 3.47(L) 3.90 - 5.20 M/cumm GEETHA Comment:Testing performed by : [address] [address] MCV 82.7 81.3 - 96.4 fL GEETHA Comment:Testing performed by : [address] [address] MCH 26.5(L) 27.1 - 33.3 pg GEETHA BENJAMIN Comment:Testing performed by : [address] [address] MCHC 32.1(L) 32.3 - 35.7 g/dL GEETHA BENJAMIN Comment:Testing performed by : [address] [address] RDW CV 14.6 11.1 - 14.9 % GEETHA BENJAMIN Comment:Testing performed by : [address] [address] RDW SD 43.8 35.7 - 48.1 fL GEETHA BENJAMIN Comment:Testing performed by : [address] [address] NRBC abs 0.00 0.00 - 0.01 K/cumm GEETHA Comment:Testing performed by : [address], [address] Blood Venous blood specimen / Unknown 02/01/2025 12:00 PM CDT 02/01/2025 12:04 PM CDT Brii GÓMEZ LAB BLOOD ORDERABLES Final Resu lt Performing Organization Address City/[facility]/ZIP Co de Phone Number [address] [place] [address] * Magnesium (02/01/2025 12:00 PM CDT) Pathologist [facility] Magnesium 1.4 1.4 - 2.5 mg/dL Comment:Testing performed by : [address] [address] [address] Blood 02/01/2025 12:0 0 PM CDT 02/01/2025 12:04 PM CDT Ian Ramirez MD LAB BLOOD ORDERABLES Final Resu lt [address] [place] [address] * (ABNORMAL) Comprehensive metabolic panel (02/01/2025 12:00 PM CDT) Pathologist [facility] Sodium 138 135 - 145 mmol/L Comment:Testing performed by : [address] [address] Potassium, pl 3.9 3.3 - 4.9 mmol/L [facility] Comment:Testing performed by : [address], [place]., [address] Chloride 101 97 - 110 mmol/L GEETHA Comment:Testing performed by : [address], [place]., [address] CO2 25 22 - 32 mmol/L [facility] Comment:Testing performed by : [address], [place]., [address] Anion gap 12 2 - 15 mmol/L [facility] Comment:Testing performed by : [address], [place]., [address] BUN 31(H) 6 - 25 mg/dL [facility] Comment:Testing performed by : [address], [place]., [address] Creatinine 1.36(H) 0.60 - 1.10 mg/dL [facility] Comment:Testing performed by : [address] [address] Glucose 262(H) 70 - 199 mg/dL [facility] Comment: Interpretive Data Fasting glucose >/= 126 [...] was last revised 2022. Testing performed by: [address] [address] Calcium 9.5 8.5 - 10.3 mg/dL [facility] Comment:Testing performed by : [address], [place]., [address] Bilirubin, total 0.2 0.1 - 1.2 mg/dL [facility] Comment:Testing performed by : [address] [address] Protein, pl 7.5 6.5 - 8.5 g/dL [facility] Comment:Testing performed by : [address] [address] Albumin 4.0 3.5 - 5.0 g/dL [facility] Comment:Testing performed by : [address] [address] Alk phos 86 40 - 130 Units/L [facility] Comment:Testing performed by : [address] [address] ALT 20 7 - 45 Units/L [facility] Comment:Testing performed by : [address] [address] AST 30 10 - 45 Units/L [facility] Comment:Testing performed by : [address] [address] Blood 02/01/2025 12:0 0 PM CDT 02/01/2025 12:04 PM CDT us Brii GÓMEZ LAB BLOOD ORDERABLES Final Resu lt [facility] [address] [facility] Department of Laboratories [place], [place] [id number] * ECG 12 lead (02/01/2025 11:56 AM CDT) Ventricular Rate EKG/Min 118 BPM [facility] Atrial Rate 118 BPM [facility] OK-Interval (MSEC) 136 ms [facility] QRS-Interval (MSEC) 76 ms [facility] QT-Interval (MSEC) 302 ms [facility] QTc 423 ms [facility] P [place] 57 degrees [facility] R [place] 3 degrees [facility] T [place] 35 degrees [facility] Diagnosis Sinus tachycardia Otherwise normal ECG When compared with ECG of 27-NOV-2024 12:51, Vent. rate has increased BY 39 BPM Confirmed by JUSTIN ZENG M.D. ([id number]) on 02/02/2025 12:30:09 PM [facility] 02/01/2025 11:5 6 AM CDT 02/02/2025 12:30 PM CDT us Brii GÓMEZ ECG ORDERABLES Final Result [facility] * MRI Lumbar Spine [...] spine CT dated 12/20/2024. FINDINGS: SEGMENTATION: 5 yaj-wpz-odwlmbg lumbar type vertebral bodies. ALIGNMENT: Focal kyphosis [...] on the previous lumbar spine CT. 3. 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 Level by level details as above. THIS IS AN ELECTRONICALLY VERIFIED FINAL REPORT 01/26/2025 3:57 PM - Electronically signed by Zeus DELGADO T: Report ID: [id number] Reading Location: [id number] Procedure Note Zeus Jerez, DO - 01/26/2025 [...] spine CT dated 12/20/2024. FINDINGS: SEGMENTATION: 5 dfe-nav-dhgazpi lumbar type vertebral bodies. ALIGNMENT: Focal kyphosis [...] on the previous lumbar spine CT. 3. 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 Level by level details asabove. THIS IS AN ELECTRONICALLY VERIFIED FINAL REPORT 01/26/2025 3:57 PM - Electronically signed by Zeus DELGADO T: Report ID: [id number] Reading Location: [place] [address] us Zane [place] MD IMG MRI PROCEDURES Final Result * (ABNORMAL) eGFR [...] was last reviewed 2021. Testing performed by: [facility], [address] [place] [address]., [address] Blood 01/15/2025 9:08 AM CDT 01/15/2025 9:09 AM CDT us Eri Green DO LAB BLOOD ORDERABLES Final R esult [facility] [address] [facility] Department [place] [address] * (ABNORMAL) Comprehensive metabolic panel (01/15/2025 9:08 AM CDT) Sodium 141 135 - 145 mmol/L Comment:Testing performed by : [address] [address] Potassium, pl 4.6 3.3 - 4.9 mmol/L [facility] Comment:Testing performed by : [address] [address] Chloride 104 97 - 110 mmol/L [facility] Comment:Testing performed by : [address] [address] CO2 25 22 - 32 mmol/L [facility] Comment:Testing performed by : [address] [address] Anion gap 12 2 - 15 mmol/L [facility] Comment:Testing performed by : [address] [address] BUN 33(H) 6 - 25 mg/dL [facility] Comment:Testing performed by : [address] [address] Creatinine 1.40(H) 0.60 - 1.10 mg/dL [facility] Comment:Testing performed by : [address] [address] Glucose 137 70 - 199 mg/dL [facility] [...] classification and Diagnosis of Diabetes Diabetes Care 2022; 46: S19-S40. Current interpretive data was last revised 2022. Testing performed by: [facility], [address] [place] [address]., [address] Calcium 9.2 8.5 - 10.3 mg/dL [facility] Comment:Testing performed by : [address] [address] Bilirubin, total 0.3 0.1 - 1.2 mg/dL [facility] Comment:Testing performed by : [address] [address] Protein, pl 6.7 6.5 - 8.5 g/dL [facility] Comment:Testing performed by : [address] [address] Albumin 4.0 3.5 - 5.0 g/dL [facility] Comment:Testing performed by : [address] [address] Alk phos 82 40 - 130 Units/L [facility] Comment:Testing performed by : [address] [address] ALT 22 7 - 45 Units/L [facility] Comment:Testing performed by : [address] [address] AST 23 10 - 45 Units/L [facility] Comment:Testing performed by : [address] [address] Blood 01/15/2025 9:08 AM CDT 01/15/2025 9:09 AM CDT us Eri Green DO LAB BLOOD ORDERABLES Final R esult [facility] [address] [facility] Department [place] [address] * Imaging Lumbar/Sacral Selective Nerve Root INJ (TFE) Bilateral ([id number]) (01/08/2025 10:58 AM CDT) Narrative [id number] - 01/08/2025 3:57 PM CDT The images from this study are not interpreted by Radiology. Please refer to the physician's procedure / OR operative note. Zane [place] MD [facility] PAIN MGMT PROCEDURES Final R esult Performing Organization Address [facility] Co de Phone Number [email or web address] * Imaging Lumbar/Sacral Selective Nerve Root INJ (TFE) Bilateral ([id number]) (12/25/2024 3:20 PM [facility]) Narrative LIVIER_RUY_MHB_MHE - 12/25/2024 4:03 PM [facility] The images from this study are not interpreted by Radiology. Please refer to the physician's procedure / OR operative note. Zane [place] MD [facility] PAIN MGMT PROCEDURES Final R [facility] Performing Organization Address [facility] de Phone Number [email or web address] * CT Lumbar Spine W WO Contrast (12/20/2024 2:45 PM [facility]) Anatomical Region Laterality Modality Spine N/A Computed Tomogra phy 12/21/2024 8:49 PM [facility] Narrative 12/21/2024 9:02 PM [facility] EXAM DESCRIPTION: CT LUMBAR SPINE W WO [...] spine CT dated 12/04/2022. FINDINGS: SEGMENTATION: 5 xxe-erc-otnkjar lumbar type vertebral bodies. ALIGNMENT: Focal kyphosis [...] formation. Thickened ligamentum flavum and facet arthropathy. Eesh-li-nzpeufjq osseous spinal canal stenosis. No significant osseous [...] depression. Please correlate with point tenderness. 4. Ghwf-ju-mlsjmekk lumbar degenerative changes. The osseous spinal canal stenosis is most noticeable at L3-L4 and L4-L5. 5. With a history of breast cancer the need for further evaluation with contrast-enhanced MRI as clinically indicated. THIS IS AN ELECTRONICALLY VERIFIED FINAL REPORT 12/21/2024 9:02 PM - Electronically signed by Zeus Jerez D.O. AP: AP Report ID: [id number] Reading Location: [id number] Procedure Note Zeus Jerez, DO - 12/21/2024 [...] lumbar spineCT dated 12/04/2022. FINDINGS: SEGMENTATION: 5 fib-ebx-qxjfpqp lumbar type vertebral bodies. ALIGNMENT: Focal kyphosis [...] spur formation. Thickened ligamentumflavum and facet arthropathy. Xsau-ul-zvuydiri osseous spinal canal stenosis.No significant osseous neural [...] endplate depression. Please correlatewith point tenderness. 4. Jabx-wd-munjgtcu lumbar degenerative changes. The osseous spinalcanal stenosis is most noticeable at L3-L4 and L4-L5. 5. With a history of breast cancer the need for further evaluation with contrast-enhanced MRI as clinically indicated. THIS IS AN ELECTRONICALLY VERIFIED FINAL REPORT 12/21/2024 9:02 PM - Electronically signed by Zeus Jerez D.O. AP: AP Report ID: [id number] Reading Location: [place] [address] Tahmina Antoine [employer] IMG CT PROCEDURES Fi nal Result * (ABNORMAL) eGFR (12/18/2024 8:21 AM [facility]) eGFR 35(L) >=60 mL/min/1. 73 m2 Comment: [...] was last reviewed 2021. Testing performed by: [facility], [address] [place] [address], [place]., [address] Blood 12/18/2024 8:21 AM [facility] 12/18/2024 8:25 AM [facility] us Eri Green DO LAB BLOOD ORDERABLES Final R esult [facility] [address] [facility] Department [place] [address] * Differential, auto (12/18/2024 8:21 AM [facility]) Neutrophil abs 2.5 1.5 - 6.5 K/cumm Comment:Testing performed by : [address] [address] Imm gran abs 0.0 0.0 - 0.1 K/cumm [facility] Comment:Testing performed by : [address] [address] Lymphocyte abs 1.0 0.8 - 3.3 K/cumm [facility] Comment:Testing performed by : [address] [address] Monocyte abs 0.6 0.2 - 0.8 K/cumm [facility] Comment:Testing performed by : [address] [address] Eosinophil abs 0.2 0.0 - 0.5 K/cumm [facility] Comment:Testing performed by : [address] [address] Basophil abs 0.0 0.0 - 0.1 K/cumm [facility] Comment:Testing performed by : [address] [address] Neutrophil pct 57.0 % [facility] Comment: Interpretive Data Percent cell count reference ranges are not reported, since discordance with absolute values may lead to misinterpretation of CBC data. Current Interpretive Data was last revised on 2018. Testing performed by: [address] [address] Imm gran pct 0.5 % [facility] Comment: Interpretive Data Percent cell count reference ranges are not reported, since discordance with absolute values may lead to misinterpretation of CBC data. Current Interpretive Data was last revised on 2018. Testing performed by: [address] [address] Lymphocyte pct 23.5 % [facility] Comment: Interpretive Data Percent cell count reference ranges are not reported, since discordance with absolute values may lead to misinterpretation of CBC data. Current Interpretive Data was last revised on 2018. Testing performed by: [address] [address] Monocyte pct 13.1 % [facility] Comment: Interpretive Data Percent cell count reference ranges are not reported, since discordance with absolute values may lead to misinterpretation of CBC data. Current Interpretive Data was last revised on 2018. Testing performed by: [address] [address] Eosinophil pct 5.4 % [facility] Comment: Interpretive Data Percent cell count reference ranges are not reported, since discordance with absolute values may lead to misinterpretation of CBC data. Current Interpretive Data was last revised on 2018. Testing performed by: [address] [address] Basophil pct 0.5 % [facility] Comment: Interpretive Data Percent cell count reference ranges are not reported, since discordance with absolute values may lead to misinterpretation of CBC data. Current Interpretive Data was last revised on 2018. Testing performed by: [address] [address] Blood 12/18/2024 8:21 AM [facility] 12/18/2024 8:25 AM [facility] us Eri Green DO LAB BLOOD ORDERABLES Final R esult [facility] BENJAMIN [address] [facility] Department [place] [address] * (ABNORMAL) CBC with auto differential (12/18/2024 8:21 AM [facility]) WBC 4.3 3.8 - 9.9 K/cumm Comment:Testing performed by : [address] [address] Hgb 8.2(L) 11.9 - 15.5 g/dL [facility] Comment:Testing performed by : [address] [address] Hct 25.5(L) 35.6 - 45.5 % [facility] Comment:Testing performed by : [address] [address] Plt 152 150 - 400 K/cumm [facility] Comment:Testing performed by : [address] [address] MPV 10.1 9.1 - 12.3 fL [facility] Comment:Testing performed by : [address], [address] RBC 3.11(L) 3.90 - 5.20 M/cumm [facility] Comment:Testing performed by : [address] [address] MCV 82.0 81.3 - 96.4 fL [facility] Comment:Testing performed by : [address] [address] MCH 26.4(L) 27.1 - 33.3 pg [facility] Comment:Testing performed by : [address] [address] MCHC 32.2(L) 32.3 - 35.7 g/dL [facility] Comment:Testing performed by : [address], [address] RDW CV 13.2 11.1 - 14.9 % [facility] Comment:Testing performed by : [address] [address] RDW SD 39.8 35.7 - 48.1 fL [facility] Comment:Testing performed by : [address] [address] NRBC abs 0.00 0.00 - 0.01 K/cumm [facility] Comment:Testing performed by : [address], [address] Blood 12/18/2024 8:21 AM [facility] 12/18/2024 8:25 AM [facility] us Eri Green DO LAB BLOOD ORDERABLES Final R esult [facility] [address] [facility] Department [place] [address] * (ABNORMAL) Comprehensive metabolic panel (12/18/2024 8:21 AM [facility]) Sodium 140 135 - 145 mmol/L Comment:Testing performed by : [address] [address] Potassium, pl 3.9 3.3 - 4.9 mmol/L [facility] Comment:Testing performed by : [address] [address] Chloride 101 97 - 110 mmol/L [facility] Comment:Testing performed by : [address] [address] CO2 23 22 - 32 mmol/L [facility] Comment:Testing performed by : [address] [address] Anion gap 16(H) 2 - 15 mmol/L [facility] Comment:Testing performed by : [address] [address] BUN 23 6 - 25 mg/dL [facility] Comment:Testing performed by : [address] [address] Creatinine 1.50(H) 0.60 - 1.10 mg/dL [facility] Comment:Testing performed by : [address] [address] Glucose 122 70 - 199 mg/dL [facility] [...] was last revised 2022. Testing performed by: [address] [address] Calcium 8.4(L) 8.5 - 10.3 mg/dL [facility] Comment:Testing performed by : [address] [address] Bilirubin, total 0.4 0.1 - 1.2 mg/dL [facility] Comment:Testing performed by : [address] [address] Protein, pl 7.0 6.5 - 8.5 g/dL [facility] Comment:Testing performed by : [address] [address] Albumin 3.8 3.5 - 5.0 g/dL [facility] Comment:Testing performed by : [address] [address] Alk phos 60 40 - 130 Units/L [facility] Comment:Testing performed by : [address] [address] ALT 9 7 - 45 Units/L [facility] Comment:Testing performed by : [address] [address] AST 25 10 - 45 Units/L [facility] Comment:Testing performed by : [address] [address] Blood 12/18/2024 8:21 AM [facility] 12/18/2024 8:25 AM [facility] us Eri Green DO LAB BLOOD ORDERABLES Final R esult [facility] [address] [facility] [place] [address] * CT Chest Abdomen Pelvis WO Contrast (12/11/2024 11:18 AM [facility]) Anatomical Region Laterality Modality Body N/A Computed Tomogra phy 12/12/2024 12:0 6 PM [facility] Narrative 12/12/2024 2:10 PM [facility] EXAM DESCRIPTION: CT CHEST ABDOMEN PELVIS WO [...] LUNGS: Again noted are large areas of eddxs-druiqro-knxj-left scarring in the lung apices, appearing similar [...] Miguelangel Lucero M.D. AM: AM Report ID: [id number] Reading Location: [id number] Procedure Note Miguelangel Lucero MD - 12/12/2024 [...] LUNGS: Again noted are large areas of olqhn-nxetqmw-ikpv-left scarringin the lung apices, appearing similar to [...] Miguelangel Lucero M.D. AM: AM Report ID: [id number] Reading Location: [place] [address] us Eri Green DO IMG CT PROCEDURES Final Resu lt * TRANSTHORACIC ECHO (TTE) COMPLETE W DOPPLER/CF WO CONTRAST (12/06/2024 1:15 PM [facility]) LV EF % CONS SCIMAGE Anatomical Region Laterality Modality Ultrasound 12/06/2024 12:5 1 PM [facility] Narrative 12/06/2024 1:54 PM [facility] [address], [place] [address] [address] [facility] [address], [place] [address] P:[phone] P:[phone] Echocardiographic Report Patient Name: EUSEBIA BURGOS C : 1945 Study Date: 12/06/2024 12:51:59 PM Gender: F Tech: Location: [facility] Provider: SHASHI JEREZ Height(Cm): 150 BSA: 1.43 [...] Site: Exam was interpreted at [facility]. Left Ventricle: Normal left ventricular size. [...] regurgitation. Electronically Signed By: Ricky Castro MD, [facility] 12/06/2024 1:54:06 PM [facility] Procedure Note Ricky Castro MD - 12/06/2024 [facility] [address] [facility] [address], [place] [address] [address] [facility] [address], [place] [address] P:[phone] P:[phone] Echocardiographic Report Patient Name: EUSEBIA BURGOS C : 1945 Study Date: 12/06/2024 12:51:59 PM Gender: F Tech: Location: [facility] Provider: SHASHI JEREZ Height(Cm): 150 BSA: 1.43 [...] Site: Exam was interpreted at [facility]. Left Ventricle: Normal left ventricular size. [...] regurgitation. Electronically Signed By: Ricky Castro MD, [facility] 12/06/2024 1:54:06 PM [facility] us [facility] Rasta Jerez MD CV ECHO PROCEDURES Andra l Result * (ABNORMAL) Sepsis Lactate w/ Reflex (11/27/2024 4:08 PM [facility]) Sepsis Lactate 2.5(C) 0.7 - 2.0 mmol/L Comment: Critical Result called to and read back by Karlie [id number], DATE: 2024-11-27 16:59:37 BY: [id number] Testing performed by: [facility], [address] [place] [address]., [address] Blood 11/27/2024 4:08 PM [facility] 11/27/2024 4:11 PM [facility] us Rose GÓMEZ LAB BLOOD ORDERABLES Final Re sult [facility] [address] [facility] [place] [address] * CT Abdomen Pelvis WO Contrast (11/27/2024 3:08 PM [facility]) Anatomical Region Laterality Modality Body N/A Computed Tomogra phy 11/27/2024 3:16 PM [facility] Narrative 11/27/2024 3:30 PM [facility] EXAM DESCRIPTION: CT ABDOMEN PELVIS WO CONTRAST [...] Amanda Yañez M.D. FT: FT Report ID: [id number] Reading Location: [id number] Procedure Note Amanda Cuadra MD - 11/27/2024 [...] Amanda Yañez M.D. FT: FT Report ID: [id number] Reading Location: [place] [address] us Mark Gill MD [facility] CT PROCEDURES Final Result * (ABNORMAL) Troponin T high-sensitivity 2-hour (11/27/2024 2:30 PM [facility]) Trop T hs 17(H) <=14 ng/L Comment: Interpretive Data For further hscTnT resources including the diagnostic algorithm and an aid in interpretation, copy and paste this link: https://nrl.testcatalog.org/show/hsTrop Current Interpretive Data last revised 2020. Testing performed by: [address] [address] Trop T hs delta -1 ng/L GE[facility] BENJAMIN Comment:Testing performed by : [facility], [address] [place] [address]., [address] Trop T hs interp Insignificant GE[facility]HA BENJAMIN Comment:Testing performed by : [address] [address] Blood 11/27/2024 2:30 PM [facility] 11/27/2024 2:35 PM [facility] us Mark Gill MD LAB BLOOD ORDERABLES Final Resul t [facility] [address] [facility] Department [place] [address] * Stool culture Stool Rectum (11/27/2024 2:30 PM [facility]) Direct Specimen Exam Shiga Toxin Testing: Antigen detection assay for Shiga-toxin NEGATIVE for Shiga Toxin 1 and Shiga Toxin 2. Comment:Testing performed by : [facility], [address] [place]., [address] Report Final Report: No growth of enteric bacterial pathogens GEETHA BENJAMIN Comment:Testing performed by : [facility], [address] [facility] [place]., [address] Stool (Rectum) 11/27/2024 2: 30 PM [facility] 11/27/2024 7:36 PM [facility] Narrative GEETHA BENJAMIN - 12/01/2024 8:42 AM [facility] Specimen received in a sterile container. Testing performed by [facility] Microbiology Laboratory ([phone]). Routine stool cultures include procedures to detect Salmonella, Shigella, Edwardsiella, Aeromonas, Pleisiomonas, Campylobacter, Yersinia, E. coli O157, and Shiga-like toxins. Vibrio is cultured only upon special request. If Vibrio is suspected, please call the laboratory at [phone]. Interpretive data was last updated March 01, 2017. Mark Gill MD LAB MICROBIOLOGY - GENERAL ORDER AVA Final Result Performing Organization Address City/[facility]/ZIP Co de Phone Number [facility] [address] [facility] [place] [address] * ECG 12 lead (11/27/2024 12:51 PM [facility]) [facility] Ventricular Rate EKG/Min 79 BPM [facility] Atrial Rate 79 BPM [facility] OK-Interval (MSEC) 138 ms [facility] QRS-Interval (MSEC) 72 ms [facility] QT-Interval (MSEC) 386 ms [facility] QTc 442 ms [facility] P [place] 30 degrees [facility] R [place] -20 degrees [facility] T [place] 15 degrees [facility] Diagnosis Normal sinus rhythm Normal ECG When compared with ECG of 18-DEC-2022 17:22, T wave inversion no longer evident in Anterior leads Confirmed by ERI MARTINEZ M.D. ([id number]) on 11/28/2024 8:48:32 AM [facility] 11/27/2024 12:5 1 PM [facility] 11/28/2024 8:48 AM [facility] Rose GÓMEZ ECG ORDERABLES Final Result Performing Organization Address [facility] Co de Phone Number [facility] * Influenza A/B, RSV, and COVID-19 PCR Nasopharyngeal (11/27/2024 12:48 PM [facility]) [facility] COVID-19 RNA Negative Negative Comment:Testing performed by : [facility], [address] [place] [address]., [address] Influenza A RNA Negative Negative GEETHA Comment:Testing performed by : [address] [address] Influenza B RNA Negative Negative GEETHA Comment:Testing performed by : [address] [address] RSV RNA Negative Negative GEETHA Comment: Interpretive data: Testing performed by [facility]. This test is performed using the [employer] Xpert Xpress CoV-2/Flu/RSV plus assay. This is a multiplex, real-time reverse transcriptase PCR assay intended for the qualitative detection of nucleic acid from SARS-CoV-2, influenza A, influenza B, and respiratory syncytial virus. This assay has been cleared by the [place] Food and Drug administration. The performance characteristics have been verified by the [facility]. Results must be considered in the clinical context, and a negative result does not rule out infection. Interpretive Data last revised 2023 Testing performed by: [address] [address] Nasopharyngeal 11/27/2024 12 :48 PM [facility] 11/27/2024 12:56 PM [facility] Narrative GEETHA - 11/27/2024 1:41 PM [facility] Is the Patient experiencing symptoms consistent with COVID?->Yes Mark Gill MD LAB MICROBIOLOGY - GENERAL ORDER AVA Final Result Performing Organization Address [facility] Co de Phone Number [facility] [address] [facility] Department [place] [address] * (ABNORMAL) Sepsis Lactate w/ Reflex (11/27/2024 12:48 PM [facility]TOGENETICS) Sepsis Lactate 3.1(C) 0.7 - 2.0 mmol/L Comment: Critical Result called to and read back by Karlie [id number], DATE: 2024-11-27 13:42:20 BY: [id number] Testing performed by: [address] [address] Blood 11/27/2024 12:4 8 PM [facility] 11/27/2024 12:57 PM [facility] Mark Gill MD LAB BLOOD ORDERABLES Final Resul t Performing Organization Address City/[facility]/ZIP Co de Phone Number GEETHA [facility] Department [place] [address] * (ABNORMAL) Troponin T high-sensitivity series (baseline, 2hr, 4hr, 6hr) (11/27/2024 12:38 PM [facility]TOGENETICS) Trop T hs 18(H) <=14 ng/L Comment: Interpretive Data For further hscTnT resources including the diagnostic algorithm and an aid in interpretation, copy and paste this link: https://nrl.testcatalog.org/show/hsTrop Current Interpretive Data last revised 2020. Testing performed by: [facility], [address] [place] [address], [place]., [address] Blood 11/27/2024 12:3 8 PM [facility] 11/27/2024 12:56 PM [facility] us Mark Gill MD LAB BLOOD ORDERABLES Final Resul t Performing Organization Address [facility] Co de Phone Number GEETHA [facility] Department [place] [address] * (ABNORMAL) eGFR (11/27/2024 12:38 PM [facility] CYTOGENETICS) Pathologist [facility] eGFR 27(L) >=60 mL/min/1. 73 m2 Comment: [...] was last reviewed 2021. Testing performed by: [address] [address] Blood 11/27/2024 12:3 8 PM [facility]TO[facility] 11/27/2024 12:56 PM [facility]TO[facility]ETICS us Rose GÓMEZ LAB BLOOD ORDERABLES Final Re sult [facility] [address] [facility] Department [place] [address] * Differential, auto (11/27/2024 12:38 PM [facility]TOGENETICS) Neutrophil abs 5.8 1.5 - 6.5 K/cumm Comment:Testing performed by : [address] [address] Imm gran abs 0.1 0.0 - 0.1 K/cumm GEETHA Comment:Testing performed by : [address] [address] Lymphocyte abs 1.6 0.8 - 3.3 K/cumm GEETHA Comment:Testing performed by : [address] [address] Monocyte abs 0.3 0.2 - 0.8 K/cumm GEETHA Comment:Testing performed by : [address] [address] Eosinophil abs 0.0 0.0 - 0.5 K/cumm GEETHA Comment:Testing performed by : [address] [address] Basophil abs 0.0 0.0 - 0.1 K/cumm GEETHA Comment:Testing performed by : [address] [address] Neutrophil pct 74.3 % GEETHA Comment: Interpretive Data Percent cell count reference ranges are not reported, since discordance with absolute values may lead to misinterpretation of CBC data. Current Interpretive Data was last revised on 2018. Testing performed by: [address] [address] Imm gran pct 0.8 % [facility] Comment: Interpretive Data Percent cell count reference ranges are not reported, since discordance with absolute values may lead to misinterpretation of CBC data. Current Interpretive Data was last revised on 2018. Testing performed by: [address] [address] Lymphocyte pct 19.9 % [facility] Comment: Interpretive Data Percent cell count reference ranges are not reported, since discordance with absolute values may lead to misinterpretation of CBC data. Current Interpretive Data was last revised on 2018. Testing performed by: [address] [address] Monocyte pct 4.0 % [facility] Comment: Interpretive Data Percent cell count reference ranges are not reported, since discordance with absolute values may lead to misinterpretation of CBC data. Current Interpretive Data was last revised on 2018. Testing performed by: [address] [address] Eosinophil pct 0.5 % [facility] Comment: Interpretive Data Percent cell count reference ranges are not reported, since discordance with absolute values may lead to misinterpretation of CBC data. Current Interpretive Data was last revised on 2018. Testing performed by: [address] [address] Basophil pct 0.5 % [facility] Comment: Interpretive Data Percent cell count reference ranges are not reported, since discordance with absolute values may lead to misinterpretation of CBC data. Current Interpretive Data was last revised on 2018. Testing performed by: [address] [address] Blood 11/27/2024 12:3 8 PM [facility] 11/27/2024 12:56 PM [facility]TOGENETICS us Rose GÓMEZ LAB BLOOD ORDERABLES Final Re sult GEETHA BENJAMIN [address] [facility] Department [place] [address] * (ABNORMAL) CBC with auto differential (11/27/2024 12:38 PM [facility]TO[facility]ETICS) WBC 7.8 3.8 - 9.9 K/cumm Comment:Testing performed by : [address] [address] Hgb 13.1 11.9 - 15.5 g/dL GEETHA Comment:Testing performed by : [address] [address] Hct 40.8 35.6 - 45.5 % GEETHA Comment:Testing performed by : [address] [address] Plt 220 150 - 400 K/cumm GEETHA Comment:Testing performed by : [address] [address] MPV 11.1 9.1 - 12.3 fL GEETHA Comment:Testing performed by : [address] [address] RBC 4.72 3.90 - 5.20 M/cumm GEETHA Comment:Testing performed by : [address] [address] MCV 86.4 81.3 - 96.4 fL GEETHA Comment:Testing performed by : [address] [address] MCH 27.8 27.1 - 33.3 pg GEETHA Comment:Testing performed by : [address] [address] MCHC 32.1(L) 32.3 - 35.7 g/dL GEETHA Comment:Testing performed by : [address] [address] RDW CV 13.0 11.1 - 14.9 % GEETHA Comment:Testing performed by : [address] [address] RDW SD 40.8 35.7 - 48.1 fL GEETHA Comment:Testing performed by : [address] [address] NRBC abs 0.00 0.00 - 0.01 K/cumm GEETHA Comment:Testing performed by : [address], [address] Blood 11/27/2024 12:3 8 PM [facility]TO[facility] 11/27/2024 12:56 PM [facility]TO[facility]ETICS us Rose GÓMEZ LAB BLOOD ORDERABLES Final Re sult GEETHA [address] [facility] Department [place] [address] * (ABNORMAL) Comprehensive metabolic panel (11/27/2024 12:38 PM [facility]TO[facility]ET[facility]) Sodium 139 135 - 145 mmol/L Comment:Testing performed by : [address] [address] Potassium, pl 4.6 3.3 - 4.9 mmol/L GEETHA Comment:Testing performed by : [address] [address] Chloride 105 97 - 110 mmol/L GEETHA Comment:Testing performed by : [address] [address] CO2 17(L) 22 - 32 mmol/L GEETHA Comment:Testing performed by : [address] [address] Anion gap 17(H) 2 - 15 mmol/L GEETHA Comment:Testing performed by : [address] [address] BUN 35(H) 6 - 25 mg/dL GEETHA Comment:Testing performed by : [address] [address] Creatinine 1.87(H) 0.60 - 1.10 mg/dL GEETHA Comment:Testing performed by : [address] [address] Glucose 239(H) 70 - 199 mg/dL GEETHA [...] was last revised 2022. Testing performed by: [address] [address] Calcium 9.5 8.5 - 10.3 mg/dL GEETHA Comment:Testing performed by : [address] [address] Bilirubin, total 0.3 0.1 - 1.2 mg/dL GEETHA Comment:Testing performed by : [address] [address] Protein, pl 7.1 6.5 - 8.5 g/dL GEETHA Comment:Testing performed by : [address] [address] Albumin 3.8 3.5 - 5.0 g/dL GEETHA Comment:Testing performed by : [address] [address] Alk phos 56 40 - 130 Units/L GEETHA Comment:Testing performed by : [address] [address] ALT 16 7 - 45 Units/L GEETHA Comment:Testing performed by : [address] [address] AST 27 10 - 45 Units/L [facility] Comment:Testing performed by : [address] [address] Blood 11/27/2024 12:3 8 PM [facility]TOGENET[facility] 11/27/2024 12:56 PM [facility]TOGENETICS us Rose GÓMEZ LAB BLOOD ORDERABLES Final Re sult GEETHA BENJAMIN [address] [facility] Department of Laboratories [place], [place] [address] * (ABNORMAL) eGFR (11/20/2024 11:16 AM [facility]TOGENETICS) eGFR 38(L) >=60 mL/min/1. 73 m2 Comment: [...] was last reviewed 2021. Testing performed by: [address] [address] Blood 11/20/2024 11:1 6 AM [facility] 11/20/2024 11:21 AM [facility]TO[facility]ETICS us Eri Green DO LAB BLOOD ORDERABLES Final R esult GEETHA BENJAMIN [address] [facility] Department [place] [address] * Differential, auto (11/20/2024 11:16 AM [facility]TOGENETICS) Neutrophil abs 1.7 1.5 - 6.5 K/cumm Comment:Testing performed by : [address] [address] Imm gran abs 0.0 0.0 - 0.1 K/cumm EGETHA Comment:Testing performed by : [address] [address] Lymphocyte abs 1.0 0.8 - 3.3 K/cumm GEETHA Comment:Testing performed by : [address] [address] Monocyte abs 0.4 0.2 - 0.8 K/cumm GEETHA Comment:Testing performed by : [address] [address] Eosinophil abs 0.2 0.0 - 0.5 K/cumm GEETHA Comment:Testing performed by : [address] [address] Basophil abs 0.0 0.0 - 0.1 K/cumm GEETHA Comment:Testing performed by : [address] [address] Neutrophil pct 49.1 % [facility] Comment: Interpretive Data Percent cell count reference ranges are not reported, since discordance with absolute values may lead to misinterpretation of CBC data. Current Interpretive Data was last revised on 2018. Testing performed by: [address] [address] Imm gran pct 0.3 % [facility] Comment: Interpretive Data Percent cell count reference ranges are not reported, since discordance with absolute values may lead to misinterpretation of CBC data. Current Interpretive Data was last revised on 2018. Testing performed by: [address] [address] Lymphocyte pct 30.2 % [facility] Comment: Interpretive Data Percent cell count reference ranges are not reported, since discordance with absolute values may lead to misinterpretation of CBC data. Current Interpretive Data was last revised on 2018. Testing performed by: [address] [address] Monocyte pct 12.5 % [facility] Comment: Interpretive Data Percent cell count reference ranges are not reported, since discordance with absolute values may lead to misinterpretation of CBC data. Current Interpretive Data was last revised on 2018. Testing performed by: [address] [address] Eosinophil pct 7.0 % [facility] Comment: Interpretive Data Percent cell count reference ranges are not reported, since discordance with absolute values may lead to misinterpretation of CBC data. Current Interpretive Data was last revised on 2018. Testing performed by: [address] [address] Basophil pct 0.9 % [facility] Comment: Interpretive Data Percent cell count reference ranges are not reported, since discordance with absolute values may lead to misinterpretation of CBC data. Current Interpretive Data was last revised on 2018. Testing performed by: [facility], [address] [place] [address], [place]., [address] Blood 11/20/2024 11:1 6 AM [facility]TOGENETICS 11/20/2024 11:21 AM [facility] CYTOGENETICS us Notinfile Unknown LAB BLOOD ORDERABLES Final Res ult GEETHA [address] [facility] Department [place] [address] * (ABNORMAL) Pro B-type natriuretic peptide (11/20/2024 11:16 AM [facility] CYTOGENETICS) NT-proBNP 2,448(H) <=450 pg/mL Comment: Interpretive Comments: [...] et.al. Eur Heart J. 2006:27:330-337. 2. Octavio RW, Billy AM. J. AM Eugenia Cardiol: Cardiovasc Imag. 2009;2: 216- 225. Interpretive Data Last Revised Date: 2018. Testing performed by: [address] [address] Blood 11/20/2024 11:1 6 AM [facility] CYTOGENETICS 11/20/2024 1:44 PM HEAD [facility] CYTOGENETICS us Notinfile Unknown LAB BLOOD ORDERABLES Final Res ult Performing Organization Address [facility] de Phone Number [place] [phone] [facility] [employer] [place] [address] * Iron profile w/ IBC (11/20/2024 11:16 AM HEAD OF CYTOGENETICS) Pathologist [facility] Iron 78 35 - 145 mcg/dL Comment:Testing performed by : [address] [address] TIBC 288 250 - 400 mcg/dL GEETHA Comment:Testing performed by : [address] [address] Transferrin saturation 27 20 - 50 % GEETHA Comment:Testing performed by : [address] [address] Blood 11/20/2024 11:1 6 AM [facility] CYTOGENETICS 11/20/2024 1:44 PM [facility] CYTOGENETICS us Notinfile Unknown LAB BLOOD ORDERABLES Final Res ult Performing Organization Address [facility] de Phone Number [place] [phone] [facility] [employer] [place] [address] * (ABNORMAL) CBC with auto differential (11/20/2024 11:16 AM [facility] CYTOGENETICS) WBC 3.4(L) 3.8 - 9.9 K/cumm Comment:Testing performed by : [address] [address] Hgb 8.7(L) 11.9 - 15.5 g/dL GEETHA Comment:Testing performed by : [address] [address] Hct 26.7(L) 35.6 - 45.5 % GEETHA Comment:Testing performed by : [address], [address] Plt 102(L) 150 - 400 K/cumm GEETHA Comment:Testing performed by : [address], [address] MPV 10.3 9.1 - 12.3 fL GEETHA Comment:Testing performed by : [address], [address] RBC 3.10(L) 3.90 - 5.20 M/cumm GEETHA Comment:Testing performed by : [address], [address] MCV 86.1 81.3 - 96.4 fL GEETHA Comment:Testing performed by : [address], [address] MCH 28.1 27.1 - 33.3 pg GEETHA Comment:Testing performed by : [address], [address] MCHC 32.6 32.3 - 35.7 g/dL GEETHA Comment:Testing performed by : [address], [address] RDW CV 12.9 11.1 - 14.9 % GEETHA Comment:Testing performed by : [address], [address] RDW SD 40.3 35.7 - 48.1 fL GEETHA Comment:Testing performed by : [address], [address] NRBC abs 0.00 0.00 - 0.01 K/cumm GEETHA Comment:Testing performed by : [address], [address] Blood 11/20/2024 11:1 6 AM [facility] CYTOGENETICS 11/20/2024 11:21 AM HEAD [facility] CYTOGENETICS us Notinfile Unknown LAB BLOOD ORDERABLES Final Res ult [facility]ER[address] [address] * Vitamin D 25 hydroxy (11/20/2024 11:16 AM HEAD OF CYTOGENETICS) [facility] Vitamin D 25-OH 32.0 30.0 - 80.0 ng/mL Blood 11/20/2024 11:1 6 AM [facility] CYTOGENETICS 11/20/2024 2:28 PM HEAD OF CYTOGENETICS us Notinfile Unknown LAB BLOOD ORDERABLES Final Res ult Performing Organization Address [facility] Co de Phone Number [address] [address] * TSH (11/20/2024 11:16 AM HEAD [facility] CYTOGENETICS) [facility] Thyroid Stimulating Hormone 1.69 0.30 - 4.20 mcIUnit/mL Comment:Testing performed by : [address] [address] Blood 11/20/2024 11:1 6 AM [facility]TOGENETICS 11/20/2024 1:44 PM HEAD OF CYTOGENETICS Notinfile Unknown LAB BLOOD ORDERABLES Final Res ult Performing Organization Address [facility] de Phone Number [address] [address] * (ABNORMAL) Hemoglobin A1c (11/20/2024 11:16 AM HEAD OF CYTOGENETICS) [facility] Hgb A1C 7.0(H) 4.0 - 5.6 % Comment:Testing performed by : [address] [address] Estimated Average Glucose 154 mg/dL GEETHA Comment: The ADA recommends reporting an estimated Average Glucose (eAG) with all Hemoglobin A1c results using the equation derived from a study of 507 normal and diabetic adults. Minority populations were underrepresented and children were not included. (Diabetes Care 31:4426-3207, 2008). The eAG is not equivalent to a fasting glucose. Testing performed by: [address] [address] Blood 11/20/2024 11:1 6 AM [facility]TOGENETICS 11/20/2024 1:44 PM HEAD OF CYTOGENETICS us Notinfile Unknown LAB BLOOD ORDERABLES Final Res ult GEETHA [address] [facility] Department [place] [address] * (ABNORMAL) Lipid panel (11/20/2024 11:16 AM [facility] CYTOGENETICS) Cholesterol 303(H) 30 - 199 mg/dL Comment: [...] last revised on 2018. Testing performed by: [address] [address] Triglycerides 290(H) <=149 mg/dL GEETHA Comment: Interpretive Data Ages < [...] last revised on 2018. Testing performed by: [address] [address] HDL 56 >=40 mg/dL GEETHA Comment: Interpretive [...] last revised on 2018. Testing performed by: [address] [address] LDL, calculated 190(H) <=129 mg/dL GEETHA Comment: [...] NCEP Expert Panel. Circulation 2004;110:227 3. Josue Gomez et al. JAIME Cardiol. 2019February 22;5(5):540-548. doi: 10.1001/jamacardio.2020.0013 Current Interpretive Data was last revised on 2024. Testing performed by: [address] [address] Non-HDL Cholesterol 247 mg/dL GEETHA Comment: Interpretive [...] last revised on 2018. Testing performed by: [address] [address] Chol/HDL ratio 5 GEETHA Comment:Testing performed by : [address] [address] Blood 11/20/2024 11:1 6 AM [facility]ET[facility] 11/20/2024 1:44 PM [facility] CYTOGENETICS us Notinfile Unknown LAB BLOOD ORDERABLES Final Res ult GEETHA [address] [facility] Department [place] [address] * (ABNORMAL) Comprehensive metabolic panel (11/20/2024 11:16 AM [facility] CYTOGENETICS) Sodium 142 135 - 145 mmol/L Comment:Testing performed by : [address] [address] Potassium, pl 4.6 3.3 - 4.9 mmol/L GEETHA Comment:Testing performed by : [address] [address] Chloride 108 97 - 110 mmol/L GEETHA Comment:Testing performed by : [address] [address] CO2 23 22 - 32 mmol/L GEETHA Comment:Testing performed by : [address] [address] Anion gap 11 2 - 15 mmol/L GEETHA Comment:Testing performed by : [address] [address] BUN 25 6 - 25 mg/dL GEETHA Comment:Testing performed by : [address] [address] Creatinine 1.40(H) 0.60 - 1.10 mg/dL GEETHA Comment:Testing performed by : [address] [address] Glucose 208(H) 70 - 199 mg/dL GEETHA [...] was last revised 2022. Testing performed by: [address] [address] Calcium 8.7 8.5 - 10.3 mg/dL GEETHA Comment:Testing performed by : [address] [address] Bilirubin, total 0.3 0.1 - 1.2 mg/dL GEETHA Comment:Testing performed by : [address] [address] Protein, pl 6.7 6.5 - 8.5 g/dL GEETHA Comment:Testing performed by : [address] [address] Albumin 3.9 3.5 - 5.0 g/dL GEETHA Comment:Testing performed by : [address] [address] Alk phos 52 40 - 130 Units/L GEETHA Comment:Testing performed by : [address] [address] ALT 14 7 - 45 Units/L GEETHA Comment:Testing performed by : [address] [address] AST 31 10 - 45 Units/L GEETHA Comment:Testing performed by : [address] [address] Blood 11/20/2024 11:1 6 AM [facility]TO[facility] 11/20/2024 11:21 AM [facility] CYTOGENETICS us Eri Green DO LAB BLOOD ORDERABLES Final R esult GEETHA [address] Department [place] [address] * (ABNORMAL) eGFR (11/09/2024 7:49 AM [facility] CYTOGENETICS) eGFR 32(L) >=60 mL/min/1. 73 m2 Comment: [...] was last reviewed 2021. Testing performed by: [address] [address] Blood 11/09/2024 7:49 AM [facility]TO[facility]ETICS 11/09/2024 7:56 AM [facility] CYTOGENETICS Eri Green DO LAB BLOOD ORDERABLES Final R esult GEETHA [address] [facility] Department [place] [address] * Differential, auto (11/09/2024 7:49 AM HEAD OF CYTOGENETICS) Pathologist [facility] Neutrophil abs 1.9 1.5 - 6.5 K/cumm Comment:Testing performed by : [address] [address] Imm gran abs 0.0 0.0 - 0.1 K/cumm GEETHA Comment:Testing performed by : [address] [address] Lymphocyte abs 1.4 0.8 - 3.3 K/cumm [facility] Comment:Testing performed by : [address] [address] Monocyte abs 0.7 0.2 - 0.8 K/cumm [facility] Comment:Testing performed by : [address], [place]., [address] Eosinophil abs 0.3 0.0 - 0.5 K/cumm [facility] Comment:Testing performed by : [address], [place]., [address] Basophil abs 0.0 0.0 - 0.1 K/cumm [facility] Comment:Testing performed by : [address] [address] Neutrophil pct 44.7 % [facility] Comment: Interpretive Data Percent cell count reference ranges are not reported, since discordance with absolute values may lead to misinterpretation of CBC data. Current Interpretive Data was last revised on 2018. Testing performed by: [address] [address] Imm gran pct 0.2 % [facility] Comment: Interpretive Data Percent cell count reference ranges are not reported, since discordance with absolute values may lead to misinterpretation of CBC data. Current Interpretive Data was last revised on 2018. Testing performed by: [address] [address] Lymphocyte pct 32.3 % [facility] Comment: Interpretive Data Percent cell count reference ranges are not reported, since discordance with absolute values may lead to misinterpretation of CBC data. Current Interpretive Data was last revised on 2018. Testing performed by: [address] [address] Monocyte pct 16.2 % [facility] Comment: Interpretive Data Percent cell count reference ranges are not reported, since discordance with absolute values may lead to misinterpretation of CBC data. Current Interpretive Data was last revised on 2018. Testing performed by: [address] [address] Eosinophil pct 5.9 % [facility] Comment: Interpretive Data Percent cell count reference ranges are not reported, since discordance with absolute values may lead to misinterpretation of CBC data. Current Interpretive Data was last revised on 2018. Testing performed by: [address] [address] Basophil pct 0.7 % GEETHA BENJAMIN Comment: Interpretive Data Percent cell count reference ranges are not reported, since discordance with absolute values may lead to misinterpretation of CBC data. Current Interpretive Data was last revised on 2018. Testing performed by: [address] [address] Blood 11/09/2024 7:49 AM [facility]TOGENETICS 11/09/2024 7:56 AM HEAD OF CYTOGENETICS Eri rGeen DO LAB BLOOD ORDERABLES Final R esult GEETHA [address] [facility] Department [place] [address] * (ABNORMAL) CBC with auto differential (11/09/2024 7:49 AM HEAD OF CYTOGENETICS) WBC 4.3 3.8 - 9.9 K/cumm Comment:Testing performed by : [address] [address] Hgb 9.9(L) 11.9 - 15.5 g/dL GEETHA BENJAMIN Comment:Testing performed by : [address] [address] Hct 29.3(L) 35.6 - 45.5 % GEETHA Comment:Testing performed by : [address] [address] Plt 212 150 - 400 K/cumm GEETHA Comment:Testing performed by : [address] [address] MPV 9.8 9.1 - 12.3 fL GEETHA BENJAMIN Comment:Testing performed by : [address] [address] RBC 3.46(L) 3.90 - 5.20 M/cumm GEETHA BENJAMIN Comment:Testing performed by : [address] [place] [address] MCV 84.7 81.3 - 96.4 fL GEETHA BENJAMIN Comment:Testing performed by : [address] [address] MCH 28.6 27.1 - 33.3 pg GEETHA BENJAMIN Comment:Testing performed by : [address] [address] MCHC 33.8 32.3 - 35.7 g/dL GEETHA BENJAMIN Comment:Testing performed by : [address] [address] RDW CV 12.5 11.1 - 14.9 % GEETHA BENJAMIN Comment:Testing performed by : [address] [address] RDW SD 38.3 35.7 - 48.1 fL GEETHA BENJAMIN Comment:Testing performed by : [address] [address] NRBC abs 0.00 0.00 - 0.01 K/cumm GEETHA BENJAMIN Comment:Testing performed by : [address] [address] Blood 11/09/2024 7:49 AM [facility]TOGENETICS 11/09/2024 7:56 AM HEAD OF CYTOGENETICS Eri Green DO LAB BLOOD ORDERABLES Final R esult GEETHA [address] [facility] Department [place] [address] * (ABNORMAL) Comprehensive metabolic panel (11/09/2024 7:49 AM [facility] OF CYTOGENETICS) Sodium 139 135 - 145 mmol/L Comment:Testing performed by : [address] [address] Potassium, pl 3.9 3.3 - 4.9 mmol/L GEETHA BENJAMIN Comment:Testing performed by : [address] [address] Chloride 103 97 - 110 mmol/L GEETHA BENJAMIN Comment:Testing performed by : [address] [address] CO2 22 22 - 32 mmol/L GEETHA Comment:Testing performed by : [address] [address] Anion gap 14 2 - 15 mmol/L GEETHA Comment:Testing performed by : [address] [address] BUN 30(H) 6 - 25 mg/dL GEETHA Comment:Testing performed by : [address] [address] Creatinine 1.60(H) 0.60 - 1.10 mg/dL GEETHA Comment:Testing performed by : [address] [address] Glucose 106 70 - 199 mg/dL [facility] Comment: Interpretive Data Fasting glucose >/= 126 [...] was last revised 2022. Testing performed by: [address] [address] Calcium 9.1 8.5 - 10.3 mg/dL [facility] Comment:Testing performed by : [address] [address] Bilirubin, total 0.3 0.1 - 1.2 mg/dL [facility] Comment:Testing performed by : [address] [address] Protein, pl 7.4 6.5 - 8.5 g/dL [facility] Comment:Testing performed by : [address] [address] Albumin 4.0 3.5 - 5.0 g/dL [facility] Comment:Testing performed by : [address] [address] Alk phos 56 40 - 130 Units/L [facility] BENJAMIN Comment:Testing performed by : [facility], [address] [place] [address]., [id number] ALT 37 7 - 45 Units/L GE[facility] BENJAMIN Comment:Testing performed by : [facility], [address] [place] [address]., [address] AST 51(H) 10 - 45 Units/L [facility] BENJAMIN Comment:Testing performed by : [address] [address] Blood 11/09/2024 7:49 AM HEAD OF CYTOGENETICS 11/09/2024 7:56 AM HEAD OF CYTOGENETICS us Eri Green DO LAB BLOOD ORDERABLES Final R esult [facility] [address] [facility] Department [place] [address] * Dexa Axial Skeleton Bone Density 1 or 2 Site (01/15/2023 1:26 PM CDT) Anatomical Region Laterality Modality Body N/A Mammography 01/16/2023 9:47 AM CDT Narrative 01/16/2023 9:48 AM CDT EXAM DESCRIPTION: DEXA AXIAL SKELETON BONE DENSITY 1 OR MORE SITES REASON FOR STUDY: 77 y/o year old F with given history of screening. Postmenopausal Inspector Exhaust Emissions/Model: Hologic Xcalar A (S/N [id number]) CLINICAL INFORMATION: Current height: 58 inches Maximum [...] Nguyễn Joy M.D. MF: RANDY Report ID: [id number] Reading Location: [place] [address] Procedure Note Nguyễn Joy MD - 01/16/2023 EXAM DESCRIPTION: DEXA AXIAL SKELETON BONE DENSITY 1 OR MORE SITES REASON FOR STUDY: 77 y/o year old F with given history of screening. Postmenopausal Inspector Exhaust Emissions/Model: Hologic Xcalar A (S/N [id number]) CLINICAL INFORMATION: Current height: 58 inches Maximum [...] Nguyễn Joy M.D. MF: RANDY Report ID: [id number] Reading Location: [place] [address] Byron Sebastian MD IMG DXA PROCEDURES Final Re sult from Last 3 Months or Most Recently Relevant to Health Maintenance Insurance [facility] MEDICARE ADVANTAGE UHC MEDICARE ADVANTAGE UHC MEDICARE ADVANTAGE Advance Directives For more information, please contact: [phone] * Full Code (Latest Code Status on File) Date Activated Date Inactivated Comments 12/19/2022 7:43 AM 12/21/2022 3:29 PM * Full Code Date Activated Date Inactivated Comments 07/27/2022 8:32 PM 07/28/2022 9:25 PM Care Teams Conference Center Manager Relationship Specialty Start Date End Date Dev Concepcion MD [address] [place] [id number] PCP - General Family Medicine 07/13/24 Griffin Peterson MD [address] [facility] [address] [place], [place] [address] Surgery 05/23/20 Zane Jeffery MD [address] [facility], [facility] [address] [place] [address] Pain Management 06/27/20 Tahmina Antoine, NEERU [address] [facility] [address] [place] [address] Nurse Practitioner Medical Oncology 09/30/22 Vidhya Avila MD [address] [facility] [address] [place] [address] Audio Visual Aide Gastroenterology 10/08/22 Anuj Contreras MD [address] [facility] [address] [place], [place] [address] Radiation Oncologist Radiation Oncology 03/06/24 Eri Green DO [address] [place] [address] [address] [place] [address] Medical Oncologist/Athletics Director Hematology and Oncology 05/24/24 Shashi Jerez MD [address] [facility] [address] [place] [address] Consulting Physician Interventional Cardiology 12/22/24
[2025-02-05 08:45] LABS: EDUAAPPEAR Clear; EDUABILI Negative (Negative); EDUABLOOD Negative (Negative); EDUACOLOR1 Yellow; EDUAGLUCOSE Negative (Negative); EDUAKETONE Trace (Negative); EDUALEUKO 1+ (Negative); EDUANITRATE Negative (Negative); EDUAPROTEIN 1+ (Negative); EDUAUROBILI 0.2
== END 2025-02-05 09:12 | disposition home or self-care (01) ==
PROVIDERS: Emergency Provider Nurse Practitioner Family
DX: N30.00 Acute cystitis without hematuria (principal); B96.5 Pseudomonas (aeruginosa) (mallei) (pseudomallei) as the cause of diseases classified elsewhere; I48.0 Paroxysmal atrial fibrillation; E11.9 Type 2 diabetes mellitus without complications; J44.9 Chronic obstructive pulmonary disease, unspecified; I50.9 Heart failure, unspecified; M19.90 Unspecified osteoarthritis, unspecified site; K21.9 Gastro-esophageal reflux disease without esophagitis; H35.30 Unspecified macular degeneration; N28.9 Disorder of kidney and ureter, unspecified; Z79.01 Long term (current) use of anticoagulants; Z87.891 Personal history of nicotine dependence; Z85.3 Personal history of malignant neoplasm of breast
CPT/HCPCS: 81003; 87086; 87186; 99213; G0463

== ENCOUNTER 2025-04-18 13:30 | Outpatient (RCR) | payer MEDICARE, SELFPAY ==
--- NOTE | 2025-03-22 12:04 | OPREHPOC ---
Outpatient Therapy Plan of Care This is a Multidisciplinary Plan of Care that may contain components documented by all disciplines (PT, OT, and ST.) PT Problem 1 PT Problem #1 Knowledge Deficit PT Goal 1 Goal / Goal Update *independent with HEP Target Visit 8 PT Problem 2 PT Problem #2 Pain PT Goal 1 Goal / Goal Update * pt report pain in back at worst rating of 4/10 Target Visit 8 PT Problem 3 PT Problem #3 Impaired Strength PT Goal 1 Goal / Goal Update *increase strength of R and L LE to gross 4/5, to improve mobility skills Target Visit 8 PT Problem 4 PT Problem #4 Impaired Functional Mobility PT Goal 1 Goal / Goal Update 1* 5 reps sit/stand time of 18 seconds 2* 2 minute walking test distance of 425' with wheeled walker 3* pt report not using walker in her home 4* Tinetti balance/gait score of 27/28 Target Visit 8
--- NOTE | 2025-03-22 12:04 | PTOPEVAL1 ---
Assessment and note entered by Emmy Orantes, PT Evaluation Information Assessment Status Evaluation ICD-10 Condition Codes (PT) Pain in low back M54.50;decreased mobility Onset 12-13-2024 Subjective Information twisted back and caught herself on furniture, with L1 fracture and vertebroplasty; per pt- restrictions lifting 5# from activity: use the wheeled walker for mobility when out of home; PRN use of walker in her home/ sometimes NO walker use brace PRN for back support with more standing and activity; independent with bathing, dressing and lift home tasks; have assist from at home PRN; have ramp for home entry/ no steps; Goal: get stronger, not hurt back anymore Reported Pain Level Pain Score Self Report Additional Pain Score Comments pain range in the past week 0-6/10; stiff, tight in low back use of back brace PRN increase pain: standing/walking tolerance 60 minutes decrease pain: muscle spasm prescription at bed time; heat; report with sleeping, back pain not limit her sleeping, does roll to change positions Assessment PT Clinical Summary Noreen has the diagnosis of back pain, s/p L1 vertebroplasty due to twisting injury. Self assessment with Back Index rating of 40% limitation in activity level. Pain is increased with walking, standing and she is using a back brace PRN for pain. She uses a wheeled walker for mobility and is at home with her . 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 With the evaluation: she has decreased strength of R and L LE's; 5 reps sit/stand time of 22 seconds without use of UE; 2 minute walking test distance of 350' with wheeled walker; tinetti balance/gait score of 21/28; supine/sit transfer increases back pain. Skilled PT services are indicated for modalities PRN for back pain, therapeutic exercises and activities to increase LE strength, transfer, gait and balance skills, with education for HEP and monitor back pain with activity. Plan of Care Interventions Hot Pack/Cold Pack,Manual Therapy,Neuro Re- education,Patient/Caregiver Education,Therapeutic Activities,Therapeutic Exercise PT Services Indicated Yes Treatment Frequency and 1-2x/wk for 8 visits Duration These treatments will address the objective and functional deficits as defined above. The patient will be advanced safely and appropriately in order for the patient to progress towards his/her prior level of function. Additional exercises will be introduced and as well as a comprehensive home exercise program upon discharge, if needed, ?to ensure carryover of functional gains achieved in the clinic. This treatment plan has been reviewed and agreement upon by the patient.
--- NOTE | 2025-04-09 11:15 | PCPTNOTE ---
Pt canceled due to illness.
--- NOTE | 2025-04-18 14:20 | OPREHPOC ---
Outpatient Therapy Plan of Care This is a Multidisciplinary Plan of Care that may contain components documented by all disciplines (PT, OT, and ST.) PT Problem 1 PT Problem #1 Knowledge Deficit PT Goal 1 Goal / Goal Update *independent with HEP 04-18-25 d/c goal met Target Visit 8 Progress Met PT Problem 2 PT Problem #2 Pain PT Goal 1 Goal / Goal Update * pt report pain in back at worst rating of 4/10 04-18-25 d/c goal not met, 6/10 at worst rating Target Visit 8 Progress Not Met PT Problem 3 PT Problem #3 Impaired Strength PT Goal 1 Goal / Goal Update *increase strength of R and L LE to gross 4/5, to improve mobility skills 04-18-25 d/c goal met Target Visit 8 Progress Met PT Problem 4 PT Problem #4 Impaired Functional Mobility PT Goal 1 Goal / Goal Update 1* 5 reps sit/stand time of 18 seconds 2* 2 minute walking test distance of 425' with wheeled walker 3* pt report not using walker in her home 4* Tinetti balance/gait score of 27/28 04-18-25 d/c goals 3,4 met; improved with #2 to 420' Target Visit 8 Progress Partially Met
--- NOTE | 2025-04-18 14:21 | PTOPDC ---
Assessment and note entered by Emmy Orantes, PT Assessment Status Discharge ICD-10 Condition Codes (PT) Pain in low back M54.50 Onset 12-13-2024 Subjective Information have been walking in the house without the walker; moving and walking more; doing more house hold chores and cleaning; hesitant to bend forward- still using the gripper thing and not doing lifting- only coffee pot and kitchen things; have had more swelling in her legs--dr aware and increased her water pill; doing good walking around; agree to d/c from therapy and continue with her exercises. Reported Pain Level Pain Score Self Report Additional Pain Score Comments pain range in the past week 0-6/10; decrease pain: sit, rest, heat increase pain: standing/walking- on feet 45-60 minutes able to move in bed easier and can get up faster Assessment PT Clinical Summary Noreen has received 4 PT sessions. She is motivated and has good safety awareness. Compared to the initial evaluation: pain rating same at 0-6, but less times at 6/10-- most with increase standing and walking; self assessment with back index 40 to 28% limitation in activity level; 5 reps sit/stand time is same at 22 seconds; 2 minute walking test with rollator from 350' to 420' and without device 300' with pain 6/ 10; Tinetti balance/gait score from 21 to 28/28; education for HEP, safety with mobility and assistive devices. The goals were partially met. Discharge PT. She is to continue with her HEP, walking as tolerated, with or without assistive device. Plan of Care PT Services Indicated No
== END 2025-04-18 16:48 | disposition home or self-care (01) ==
LOC: ANHPT 13:30
PROVIDERS: PCP Family Medicine
DX: M51.369 Other intervertebral disc degeneration, lumbar region without mention of lumbar back pain or lower extremity pain (principal); M47.816 Spondylosis without myelopathy or radiculopathy, lumbar region; S32.010D Wedge compression fracture of first lumbar vertebra, subsequent encounter for fracture with routine healing
CPT/HCPCS: 97110; 97161; 97530